=== PATIENT | male | born 1965 | race Caucasian/White ===

== ENCOUNTER 2020-05-31 08:05 | Outpatient (CLI) | payer MEDICARE, SELFPAY ==
--- NOTE | ~2020-05-31 | XR_ITS ---
XR chest 2V DATE: 05/31/2020 08:44 INDICATION: Essential hypertension. Preoperative screening. TECHNIQUE: PA and lateral views COMPARISON: None FINDINGS: Normal heart size. No hilar or mediastinal enlargement. No pulmonary infiltrate or consolid ation, pleural effusion or pulmonary vascular congestion or pneumothorax. Diffuse idiopathic skeletal hyperostosis of the thoracic spine. IMPRESSION: No active cardiopulmonary disease Reviewed, dictated and finalized at location B.
[2020-05-31 08:38] LABS: Basophils Percent Auto 0.4 % (0.2-1.2); Eosinophils Absolute Auto 0.2 K/mm3 (0-0.3); Eosinophils Percent Auto 2.5 % (0-4.4); Hematocrit 39.4 % (42.0-52.0); Hemoglobin 13.3 g/dL (14.0-18.0); Immature Granulocyte Absolute 0.01 K/mm3 (0.00-0.031); Immature Granulocyte Percent A 0.1 % (0-0.5); Lymphocytes Absolute Auto 1.48 K/mm3 (0.9-3.2); Lymphocytes Percent Auto 21.8 % (18.3-44.2); Mean Corpuscular HGB Conc 33.8 g/dl (32-36); Mean Platelet Volume 10.4 fl (7.4-10.4); Monocytes Absolute Auto 0.5 K/mm3 (0.1-0.6); Monocytes Percent Auto 7.2 % (2.6-8.5); Neutrophils Absolute Auto 4.6 K/mm3 (1.3-6.7); Platelet Count Result 302 k/mm3 (150-375); Red Blood Count 4.58 M/mm3 (4.6-6.20); Red Cell Distribution Width 13.5 % (11.5-14.5); White Blood Count 6.8 K/mm3 (4.5-10.0)
[2020-05-31 08:52] LABS: Alanine Aminotransferase 16 U/L (4-50); Albumin Level 4.2 g/dL (3.5-5.1); Alkaline Phosphatase 110 U/L (38-126); Aspartate Amino Transferase 21 U/L (17-59); Bilirubin,Total 0.8 mg/dL (0.2-1.3); Blood Urea Nitrogen 9 mg/dL (9-20); Carbon Dioxide 23 mmol/L (22-30); Chloride 107 mmol/L (98-107); Cholesterol 222 mg/dL (0-200); Estimated Glomerular Filt Rate > 60; Glucose 100 mg/dL (75-110); HDL Direct 37 mg/dL; Potassium 4.2 mmol/L (3.4-5.0); Sodium 139 mmol/L (137-145); Triglycerides 147 mg/dL (<150)
[2020-05-31 09:03] LABS: LDL Cholesterol Direct 150 mg/dL
== END 2020-05-31 08:06 | disposition home or self-care (01) ==
PROVIDERS: PCP Nurse Practitioner; Visit Provider Nurse Practitioner
DX: E78.5 Hyperlipidemia, unspecified (principal); Z01.818 Encounter for other preprocedural examination; I10 Essential (primary) hypertension; Z01.810 Encounter for preprocedural cardiovascular examination
CPT/HCPCS: 36415; 71046; 80053; 80061; 85025

== ENCOUNTER 2020-06-05 13:38 | Outpatient (CLI) | payer MEDICARE, SELFPAY ==
--- NOTE | 2020-06-05 14:47 | ECG_ITS ---
Measurements Intervals Holman Rate: 67 P: 24 MN: 160 QRS: -24 QRSD: 93 T: 34 QT: 376 QTc: 397 Interpretive Statements SINUS RHYTHM BORDERLINE R WAVE PROGRESSION, ANTERIOR LEADS BASELINE ARTIFACT- I, II, AVR, AVF BORDERLINE ECG Electronically Signed On 06-05-2020 15:19:49 CDT by Talat Vicente D.O.
[2020-06-05 15:11] LABS: Add Urine Microscopic? NO; Appearance Urine Clear (Clear); Bilirubin Urine Negative (Negative); Blood Urine Negative (Negative); Color Urine Straw (Yellow); Glucose Urine UA Negative (Negative); Ketones Urine Negative (Negative); Leukocyte Esterase Ur Negative LEU/UL (Negative); Nitrate Urine Negative (Negative); Protein Urine Negative (Negative); Specific Grav Ur 1.008 (1.001-1.035); Urobilinogen Urine Negative mg/dL (<2.0)
[2020-06-05 15:20] LABS: INR 1.1; Prothrombin Time 13.4 Seconds (11.1-14.7)
[2020-06-05 15:21] LABS: Partial Thromboplastin Time 26.5 SECONDS (22.3-36.8)
[2020-06-05 15:24] LABS: Hemoglobin A1C 5.5 % (<5.7)
[2020-06-05 15:30] LABS: Urine Cotinine NEGATIVE
== END 2020-06-05 13:39 | disposition home or self-care (01) ==
PROVIDERS: PCP Nurse Practitioner; Visit Provider Orthopaedic Surgery
DX: M17.11 Unilateral primary osteoarthritis, right knee (principal); Z01.812 Encounter for preprocedural laboratory examination; Z11.59 Encounter for screening for other viral diseases; R94.31 Abnormal electrocardiogram [ECG] [EKG]
CPT/HCPCS: 36415; 80307; 81003; 83036; 85610; 85730; 86850; 86900; 86901; 87081; 93005

== ENCOUNTER 2020-06-08 09:05 | Outpatient (CLI) | payer MEDICARE, SELFPAY ==
--- NOTE | ~2020-06-08 | NM_ITS ---
EXAMINATION: NM ruth ann stress w perfusion DATE: 06/08/2020 13:14 INDICATION: Abnormal electrocardiogram. Preop. TECHNIQUE: Rest images were obtained following intravenous administration of 9.9 mCi Tc99m tetrofosmi n (Myoview). The patient was infused intravenously with Lexiscan (regadenoson). Then, 29.4 mCi Tc99m tetrofosmin (Myoview) was administered intravenously, and stress images were obtained. Data was recon structed into short axis and horizontal and vertical long axis SPECT images. Gated SPECT images were also obtained. COMPARISON: None. FINDINGS: There is no definite reversible or fixed perfusion abnormality to suggest ischemia or infar ction. There is no segmental wall motion abnormality. Left ventricular ejection fraction measures 6 4%. IMPRESSION: 1. No definite ischemia or infarct. 2. Normal left ventricular ejection fraction measuring 64%. Reviewed, dictated and finalized at location A.
--- NOTE | 2020-06-08 09:25 | EST_ITS ---
Patient Info Name: Edward Atwood Age: 54 years : 1965 Gender: Male Ht: 72 in Wt: 225 lbs BSA: 2.30 m2 Exam Date: 06/08/2020 10:45 AM Exam Location: [facility] Stress Patient Status: Outpatient Admit Date: 06/08/2020 Staff Ordering Physician: Margie Rodríguez NP Attending Provider: Margie Rodríguez NP Exercise Technologist: Elizabeth Ulloa RDCS Exercise Physician: Talat Vicente DO Exam Type: CA stress ruth ann w NM Study Info Indications Z01.818 - Encounter for other preprocedural examination A regadenoson stress test was performed. Summary 1. 1. Negative lexiscan stress test for ischemic ST changes by ECG criteria. 2. 2. Baseline hypertension. 3. 3. Nuclear scan to follow and will be reported separately. Please correlate with it. 4. 4. Patient informed of the above results. Protocol: Lexiscan Stress ECG Details Stage: REST Duration (min): 6 min : 36 sec HR (bpm): 62 SBP (mmHg): 164 DBP (mmHg): 105 Stage: REST Duration (min): 16 min : 32 sec HR (bpm): 65 SBP (mmHg): 164 DBP (mmHg): 105 Stage: STAGE 1 Duration (min): 0 min : 59 sec HR (bpm): 69 SBP (mmHg): 163 DBP (mmHg): 102 Stage: RECOVERY Duration (min): 1 min : 0 sec HR (bpm): 88 SBP (mmHg): 157 DBP (mmHg): 92 Stage: RECOVERY Duration (min): 2 min : 0 sec HR (bpm): 84 SBP (mmHg): 157 DBP (mmHg): 92 Stage: RECOVERY Duration (min): 3 min : 0 sec HR (bpm): 82 SBP (mmHg): 154 DBP (mmHg): 95 Stage: RECOVERY Duration (min): 3 min : 3 sec HR (bpm): 82 SBP (mmHg): 154 DBP (mmHg): 95 Rest HR: 65 bpm Peak HR: 88 bpm Rest Sys BP: 164 mmHg Peak Sys BP: 163 mmHg Max Pred HR: 166 bpm % Max Pred HR: 53 % Target HR: 141 bpm Max RPP: 14,344 bpm*mmHg Termination Reason: Completed protocol Cardiac Symptoms: Shortness of breath Total Time: 1 min : 0 sec Rest Goodman BP: 105 mmHg Peak Goodman BP: 102 mmHg Total Dose: 0.4 mg Resting ECG Sinus rhythm. Stress ECG No ST changes. Arrhythmias None. Report Signatures
== END 2020-06-08 09:06 | disposition home or self-care (01) ==
LOC: ANHCARD 09:08
PROVIDERS: PCP Nurse Practitioner; Visit Provider Nurse Practitioner
DX: Z01.810 Encounter for preprocedural cardiovascular examination (principal)
CPT/HCPCS: 78452; 93017; A9502; J2785

== ENCOUNTER 2020-06-12 01:16 | Outpatient (CLI) | payer MEDICARE, SELFPAY ==
[2020-06-12 16:16] LABS: SARS-CoV-2 RNA PCR Negative
== END 2020-06-12 01:17 | disposition home or self-care (01) ==
LOC: ANHCOVIDDT 01:16
PROVIDERS: PCP Nurse Practitioner; Visit Provider Orthopaedic Surgery
DX: Z01.812 Encounter for preprocedural laboratory examination (principal); Z11.59 Encounter for screening for other viral diseases
CPT/HCPCS: 87635; C9803; U0003

== ENCOUNTER 2020-06-14 01:05 | Day surgery (SDC) | payer MEDICARE, SELFPAY ==
[2020-06-05 14:44] VITALS: BMI 30.2
[2020-06-05 15:26] VITALS: BP 189/106; PULSE 72; RESP 18; TEMP 37.1; O2SAT 98
--- NOTE | 2020-06-13 11:00 | WPDANESEPPF ---
Anes - Initial Pre Proc Eval Procedure: Operation Date: 06/14/20 11:30 Proposed Procedures p Right Total Knee Arthroplasty - Laz Kumar MD Date/Time: 06/13/20 11:00 Surgeon: Laz Kumar MD Pre Op Diagnosis: Right Knee DJD Patient Data Age: 54 Gender: M Height: 1.83 m Weight: 100.9 kg Last Vital Signs Temp 37.1 C 06/05/20 15:26 Pulse 72 06/05/20 15:26 Resp 18 06/05/20 15:26 BP 189/106 H 06/05/20 15:26 Pulse Ox 98 06/05/20 15:26 Allergies Allergy/AdvReac Type Severity Reaction Status Date / Time amoxicillin Allergy Severe Headache Verified 06/06/20 14:47 prednisone Allergy Unknown Nausea Verified 06/06/20 14:47 STEROIDS AdvReac Intermediate SICK AND Uncoded 06/06/20 14:47 NAUSEA Home Medications Medication Instructions Recorded Confirmed Type infliximab 100 mg intravenous See Rx Instructions .ROUTE .COMPLEX 11/18/19 06/06/20 History solution chlorhexidine gluconate 4 % 1 applic TOPICAL ONCE #237 ml 05/15/20 06/06/20 Rx topical liquid tramadol 50 mg tablet 50 mg PO BID PRN #60 tablet 06/01/20 06/06/20 Rx venlafaxine 75 mg capsule,extended 75 mg PO BID #180 cap 06/01/20 06/06/20 Rx release 24 hr ibuprofen [Motrin IB] 800 mg PO Q6H PRN 06/05/20 06/06/20 History metoprolol succinate 50 mg 100 mg PO .daily every morning #30 06/05/20 06/06/20 Rx tablet,extended release 24 hr tablet omeprazole magnesium [Prilosec] 20 mg PO DAILY 06/05/20 06/06/20 History simvastatin 10 mg tablet 10 mg PO DAILY #90 tablet 06/06/20 06/06/20 Rx Patient hx anesthesia problems: none Family hx anesthesia problems: none PMFSH Past Medical History Medical History (Updated 06/13/20 @ 11:00 by Anton Damon DO) Anxiety associated with depression Chronic pain syndrome Depression due to physical illness Hypertension Left shoulder pain LAURENT (obstructive sleep apnea) Rheumatoid arthritis Social History Social History Smoking packs per day: 0.5 Smoking cigarettes per day: 10.0 Years smoked: 40 Smoking pack-years: 20.00 Smoking status: Light tobacco smoker Tobacco type: cigarettes Second hand tobacco smoke exposure: No Smoking end date: 11/10/13 Additional smoking assessment comments: DENIES ANY FORM OF TOBACCO USE Alcohol intake: never Substance use: never Living arrangements: with family Gender identity (if verbalized by the patient): Male Spiritual care concerns: No Agree to blood products: Yes Anes - Eval Final PreProcedure Day of Procedure 06/13/20 11:00 Patient weight: obese Heart: regular rate and rhythm Lungs: clear to auscultation and normal air movement Airway: Mallampati scale class II Neurological: alert and oriented Last oral intake: >/= 8 hours ASA classification: III Emergent: no Anesthetic plan: proceed Anesthesia type and monitoring: general LMA and standard monitoring Informed Consent: The patient's anesthetic plan and its attendant risks and benefits were discussed with the patient/family/POA. Questions were solicited and answers provided to the satisfaction of the patient/family/POA.
--- NOTE | 2020-06-13 11:01 | WPDANESPNB ---
Anes - Peripheral Nerve Block Date/Time: 06/13/20 11:01 I have discussed with the patient/family/POA the placement of a peripheral nerve block for post-operative pain management, including associated risks, benefits, complications, and side effects. Alternative methods of post-operative analgesia were detailed. Questions were solicited and answers provided to the satisfaction of the patient/family/POA. Time-Out: A pre-procedural Time-Out was completed immediately before starting the procedure and confirmed: Patient Identification, Site, Procedure, Patient Position and the Availability of Requisite Equipment. Clinical Indications: Acute post-operative pain management requested by the operative surgeon. Nerve Block Insertion Note Anes-nerve block: femoral right Patient position: supine Skin prep: chlorhexidine Needle: 22 gauge, stimulating, insulated echogenic needle. Needle length: 80 mm Technique: nerve stimulation lost at (mA) (0.3) and ultrasound Injectate: bupivacaine 0.5% with epi 5 mcg/ml (30cc) Observations: tolerated well Complications: none Procedure start time:: 1030 Procedure end time:: 1032
[2020-06-14] VITALS (13 sets, daily range): BP systolic 131–181; BP diastolic 87–109; PULSE 57–89; RESP 9–28; TEMP 36–37.2; O2SAT 95–100; BMI 32.7
--- NOTE | ~2020-06-14 | XR_ITS ---
XR knee RT 2V DATE: 06/14/2020 13:21 INDICATION: Right total knee replacement TECHNIQUE: Postoperative AP and crosstable lateral views COMPARISON: 05/04/2020 right knee FINDINGS: There are anterior skin carter. There is expected postoperative subcutaneous and intra-art icular emphysema. Status post right knee arthroplasty without patellar resurfacing. Normal alignment. No fracture or dislocation, periosteal reaction or bone destruction. No unusual radiopaque foreign vamshi dy is evident. IMPRESSION: Status post right knee arthroplasty Reviewed, dictated and finalized at location B.
--- NOTE | 2020-06-14 07:16 | WPDHPUPDATE1 ---
History and Physical Update Update Date/Time: 06/14/20 07:16 History and Physical has been reviewed, including an updated exam of the patient. There are NO changes in the patient's condition. Risks, benefits, and alternatives have been discussed and questions answered. Patient agrees to proceed with procedure.
[2020-06-14] MEDS: LACTATED RINGERS 1,000 ML 30 ML IV CONT ×2 (10:05→13:03)
[2020-06-14] MEDS: TRANEXAMIC ACID 1,000MG/ISO100 1,000 MG/100 ML BAG 200 MG IVPB (10:10)
[2020-06-14] MEDS: ACETAMINOPHEN 500 MG TABLET 1000 MG PO (10:15)
[2020-06-14] MEDS: KETOROLAC 15 MG/ML VIAL (*BKC) IV PUSH (10:15)
[2020-06-14] MEDS: ceFAZolin 2 GM/D5W 50 ML 2 GM/50 ML BAG IVPB ×2 (10:43→17:43)
[2020-06-14] MEDS: GENTAMICIN BONE CEMENT REFOBACIN 1 EACH TOPICAL (12:21)
--- NOTE | 2020-06-14 12:56 | PM.OP ---
Procedure Note - Brief Procedure Note - Brief Date of procedure: 06/14/20 Pre-op diagnosis: Right Knee DJD Post-op diagnosis: same Procedure performed: R TKA Anesthesia: GETA Surgeon: Laz Kumar MD Estimated blood loss (mL): 100 Complications: No immediate complications Condition: stable Disposition: PACU
--- NOTE | 2020-06-14 13:30 | SUR.PHASEI ---
XRAY OF RIGHT KNEE DONE AT 1320.
--- NOTE | 2020-06-14 13:46 | SUR.PHASEI ---
DR. OLSEN AWARE OF PT'S BLOOD PRESSURES; KIAN'S PT ADMISSION TO FLOOR. NO INTERVENTIONS.
--- NOTE | 2020-06-14 14:21 | OP_ITS ---
DATE OF PROCEDURE: 06/14/2020 PREOPERATIVE DIAGNOSIS: Right knee degenerative joint disease. POSTOPERATIVE DIAGNOSIS: Right knee degenerative joint disease. PROCEDURE: Right total knee arthroplasty. ANESTHESIA: General. COMPLICATIONS: None. INDICATIONS: This is a 54-year-old male with severe arthritis to the right knee due to rheumatoid arthritis. He was having severe pain. He was indicated for right total knee arthroplasty. DESCRIPTION OF PROCEDURE: The patient was taken to the operating room in stable condition and placed in supine position. General anesthesia induced and then the right lower extremity was prepped and draped sterilely from the toes to the thigh. A midline skin incision was made. Medial parapatellar arthrotomy was made. The patella was everted. There was severe arthrosis in all 3 compartments of the knee joint. An IM park was placed in the femur. Distal femoral cut was made at 5 degrees of valgus and approximately 9 mm of bone was removed from the high side of the femur and then the knee was sized to 65, so a cutting block was placed in alignment with [place] line and with the transepicondylar axis and then anterior, posterior, and chamfer cuts were made to the femur. Once that was performed, an IM park was placed in tibia and a transtibial cut was made removing approximately 10 mm of bone from the high side of the tibia. The tibia then was planed to a smooth surface. A tibial trial was placed in line with the one-third medial aspect of the tibial tubercle measuring 79 and then a femoral trial measuring [address]. The fit was very good in both the femur and the tibia. A CR poly measuring 10 mm was placed. The knee came out to full extension. There was no flexion contracture. There was good stability in varus-valgus stress. This was true also in flexion. The patella tracked without any tilt and there was no excessive rollback in flexion. Trial instrumentation was removed and then a Biomet 79 tibial component and a 65 femoral component were both cemented into place and then the 10 CR poly component was placed as well, snapped in and secured and then the knee was placed in full extension. Once the cement was hardened, the tourniquet was deflated, bleeders were cauterized and then the wound was irrigated thoroughly with sterile Betadine, sterile water for 3 minutes. Then, the deep fascial layers were approximated with #1 Vicryl suture, subcutaneous tissues with 2-0 Vicryl, and the skin then was approximated with carter. Sterile dressing was applied. The patient was extubated and then sent to recovery. Sherry I MT: Janes
[2020-06-14] MEDS: diazePAM 5 MG TABLET PO (14:52)
[2020-06-14] MEDS: VENLAFAXINE HCL XR 75 MG CAP.ER.24H PO (16:43)
[2020-06-14] MEDS: CELECOXIB 200 MG CAPSULE PO (16:43)
[2020-06-14] MEDS: DOCUSATE SODIUM 100 MG CAPSULE PO (20:46)
[2020-06-14] MEDS: FAMOTIDINE 20 MG TABLET PO (20:46)
[2020-06-14] MEDS: oxyCODONE/ACETAMINOPHEN 5-325 MG TABLET 1 TABLET PO (21:01)
[2020-06-15] MEDS: ceFAZolin 2 GM/D5W 50 ML 2 GM/50 ML BAG IVPB ×2 (01:04→09:59)
[2020-06-15 02:15] VITALS: BP 158/85; PULSE 83; RESP 16; TEMP 36.6; O2SAT 97
[2020-06-15 04:15] VITALS: BP 155/84; PULSE 81; RESP 12; TEMP 36.6; O2SAT 98
[2020-06-15] MEDS: oxyCODONE/ACETAMINOPHEN 5-325 MG TABLET 1 TABLET PO (04:51)
[2020-06-15 05:35] LABS: Basophils Percent Auto 0.3 % (0.2-1.2); Eosinophils Absolute Auto 0.1 K/mm3 (0-0.3); Eosinophils Percent Auto 1.2 % (0-4.4); Hematocrit 30.7 % (42.0-52.0); Hemoglobin 10.2 g/dL (14.0-18.0); Immature Granulocyte Absolute 0.02 K/mm3 (0.00-0.031); Immature Granulocyte Percent A 0.2 % (0-0.5); Lymphocytes Absolute Auto 1.19 K/mm3 (0.9-3.2); Lymphocytes Percent Auto 13.5 % (18.3-44.2); Mean Corpuscular HGB Conc 33.2 g/dl (32-36); Mean Corpuscular Hemoglobin 29.1 pg (26-34); Mean Corpuscular Volume 87.5 fl (80-100); Mean Platelet Volume 11.3 fl (7.4-10.4); Monocytes Percent Auto 10.7 % (2.6-8.5); Neutrophils Absolute Auto 6.5 K/mm3 (1.3-6.7); Neutrophils Percent Auto 74.1 % (45.5-73.1); Platelet Count Result 225 k/mm3 (150-375); Red Blood Count 3.51 M/mm3 (4.6-6.20); Red Cell Distribution Width 13.6 % (11.5-14.5); White Blood Count 8.8 K/mm3 (4.5-10.0)
[2020-06-15 05:50] LABS: Anion Gap 11.7 mmol/L (7-16); Blood Urea Nitrogen 9 mg/dL (9-20); Calcium 8.1 mg/dL (8.4-10.2); Carbon Dioxide 24 mmol/L (22-30); Chloride 105 mmol/L (98-107); Estimated CRCL calculation 105 ml/min; Estimated Glomerular Filt Rate > 60; Glucose 127 mg/dL (75-110); Potassium 3.7 mmol/L (3.4-5.0); Sodium 137 mmol/L (137-145)
[2020-06-15] MEDS: ONDANSETRON INJ 4 MG/2 ML VIAL IV PUSH (07:35)
[2020-06-15 08:19] VITALS: O2SAT 96
[2020-06-15] MEDS: VENLAFAXINE HCL XR 75 MG CAP.ER.24H PO (08:43)
[2020-06-15] MEDS: DOCUSATE SODIUM 100 MG CAPSULE PO (08:43)
[2020-06-15] MEDS: FAMOTIDINE 20 MG TABLET PO (08:43)
[2020-06-15] MEDS: CELECOXIB 200 MG CAPSULE PO (08:43)
[2020-06-15] MEDS: ASPIRIN 325 MG ENTERIC TABLET 650 MG PO (08:43)
--- NOTE | 2020-06-15 09:50 | PM.PNORT ---
Progress Note: A&P Assessment and Plan (1) Status post total knee replacement: Qualifiers: Laterality: right Qualified Code(s): Z96.651 - Presence of right artificial knee joint Code(s): Z96.659 - Presence of unspecified artificial knee joint Status: Acute Assessment and Plan: POD #1: RIGHT TKA Monitor nausea/decreased appetite. Anti-emetic as needed. Continue PT/OT. WBAT. Walker. Fall Risk. Continue pain control. Ice. No pillows under knee. Continue DVT prophylaxis. SCDs. Incentive spirometry. Dispo: Home with Home Health pending progress with PT/OT. Subjective Subjective Date/Time Seen: 06/15/20 09:50 POD #1 RIGHT TKA Complaints of mild nausea with pain medication. Decreased appetite. Up walking in halls with standby assist with PT/OT. Walker use. Working well with PT/OT. Review of Systems Review of Systems: All systems reviewed & are unremarkable except as noted in HPI and below Constitutional: Constitutional: Denies fever(s) and Denies headache(s) ENT: Denies headache(s) Cardiovascular: Cardiovascular: Denies chest pain, Denies diaphoresis, Denies palpitations and Denies dyspnea Respiratory: Respiratory: Denies dyspnea Gastrointestinal: Gastrointestinal: Denies abdominal pain, Denies constipation, Reports nausea and Denies vomiting Comments: decreased appetite Genitourinary: Genitourinary: Denies dysuria and Reports nocturia Comments: mild burning with urination Musculoskeletal: Musculoskeletal: Reports arthralgias (Right Knee ) and Reports joint swelling (Right Knee ) Neurologic: Denies headache(s) Endocrine: Endocrine: Denies palpitations Exam Const: General: comfortable and no acute distress Resp: Effort & Inspection: normal respiratory effort Cardio: Rate: regular rate Rhythm: regular rhythm GI: GI Palp: Yes Soft to palpation, No Tenderness to palpation present (GI) and No Guarding due to palpation present (GI) Skin: Wounds: wounds noted Other: Incision c/d/i. No surrounding redness/warmth. No hematoma. Mild ecchymosis. No wound dehiscence Neuro: Cognition (Neuro): normal cognition Other: NV intact aside from block. Moves toes. Sensation intact to light touch. +ankle dorsiflexion/plantarflexion. Extrem: Right upper extremity: normal to inspection, full ROM and normal capillary refill Left upper extremity: normal to inspection, full ROM and normal capillary refill Right lower extremity: normal to inspection, full ROM (ROM limited due to recent surgical intervention ) and knee Details: tenderness (diffuse, mild ) and swelling (diffuse, mild ) Left lower extremity: normal to inspection Psych: Mental Status: mental status grossly normal Objective Data Vital Signs Vital Signs: Vital Signs - 24 hr 06/14/20 13:03 06/14/20 13:15 06/14/20 13:20 Temperature 37.2 C Pulse Rate 87 88 88 Respiratory Rate 14 13 14 Blood Pressure 149/94 H 154/109 H 154/98 H Pulse Oximetry 100 96 99 06/14/20 13:34 06/14/20 13:47 06/14/20 14:00 Temperature 36.6 C Pulse Rate 89 83 80 Respiratory Rate 13 16 9 L Blood Pressure 160/95 H 141/99 H 160/103 H Pulse Oximetry 95 95 95 06/14/20 14:15 06/14/20 14:30 06/14/20 14:45 Temperature 36.2 C L 36.2 C L Pulse Rate 88 77 73 Respiratory Rate 28 H 18 18 Blood Pressure 131/106 H 155/99 H 151/91 H Pulse Oximetry 95 96 96 06/14/20 15:15 06/14/20 16:12 06/14/20 20:15 Temperature 36.0 C L 36.4 C 36.6 C Pulse Rate 70 72 57 L Respiratory Rate 20 18 12 Blood Pressure 154/88 H 148/95 H 181/87 H Pulse Oximetry 98 98 99 06/15/20 02:15 06/15/20 04:15 06/15/20 08:19 Temperature 36.6 C 36.6 C Pulse Rate 83 81 Respiratory Rate 16 12 Blood Pressure 158/85 H 155/84 H Pulse Oximetry 97 98 96 Intake/Output Intake/Output: Intake & Output 06/12/20 06/13/20 06/14/20 06/15/20 23:59 23:59 23:59 23:59 Intake Total 790 640 Output Total 1350 Balance 790 -710 Meds/Results Medications: Act
[2020-06-15 09:54] VITALS: BP 150/82; PULSE 82; RESP 17; TEMP 36.3; O2SAT 95
--- NOTE | 2020-06-15 12:47 | WPDANESPN ---
Anes - Prog Note Post-Op Date/Time: 06/15/20 12:47 Cardiovascular status: normal Respiratory status: normal Airway patency: baseline Mental status: baseline Post-Op hydration status: normal Vital Signs: Last Vital Signs Temp 36.3 C L 06/15/20 09:54 Pulse 82 06/15/20 09:54 Resp 17 06/15/20 09:54 BP 150/82 H 06/15/20 09:54 Pulse Ox 95 06/15/20 09:54 I/O: Intake & Output 06/14/20 06/15/20 06/15/20 23:59 07:59 15:59 Intake Total 640 400 290 Output Total 1350 Balance 640 -950 290 Laboratory Tests 06/15/20 05:06 06/15/20 05:06 06/15/20 06/15/20 05:06 05:06 WBC 8.8 RBC 3.51 L Hgb 10.2 L D Hct 30.7 L MCV 87.5 MCH 29.1 MCHC 33.2 RDW 13.6 Plt Count 225 MPV 11.3 H Immature Gran % (Auto) 0.2 Neut % (Auto) 74.1 H Lymph % (Auto) 13.5 L [place] % (Auto) 10.7 H Eos % (Auto) 1.2 Baso % (Auto) 0.3 Lymph # (Auto) 1.19 [place] # (Auto) 1.0 H Eos # (Auto) 0.1 Baso # (Auto) 0.0 Abs Immat Gran (auto) 0.02 Absolute Neuts (auto) 6.5 Absolute Nucleated RBC 0.0 Nucleated RBC % 0.0 Sodium 137 Potassium 3.7 Chloride 105 Carbon Dioxide 24 Anion Gap 11.7 BUN 9 Creatinine 0.90 Estim Creat Clear Calc 105 Estimated GFR > 60 Glucose 127 H Calcium 8.1 L Post-procedural complaints: none Patient Feedback: Patient satisfied with anesthetic care.
--- NOTE | 2020-06-15 13:21 | PM.DS ---
DS: Admitting Diagnosis Admitting Diagnosis Admitting Diagnosis: Right TKA DS: Discharge Diagnosis Discharge Diagnosis (1) Status post total knee replacement: Qualifiers: Laterality: right Qualified Code(s): Z96.651 - Presence of right artificial knee joint Code(s): Z96.659 - Presence of unspecified artificial knee joint Status: Acute Assessment and Plan: POD #1: RIGHT TKA Monitor nausea/decreased appetite. Anti-emetic as needed. Continue PT/OT. WBAT. Walker. Fall Risk. Continue pain control. Ice. No pillows under knee. Continue DVT prophylaxis. SCDs. Incentive spirometry. Dispo: Home with Home Health pending progress with PT/OT. DS: Summary Hospital Course Reason for hospitalization: Right TKA Hospital Course: 54-year-old male admitted status post right total knee replacement for postoperative medical management and pain management. He progressed well with physical therapy and occupational therapy and was cleared safe to go home with home health. Status at Discharge Functional status at discharge: uses cane/walker Overall status at discharge: patient is progressing back to baseline Time Spent with Patient Time attestation: Total time spent providing and/or coordinating discharge services: Exam Const: General: comfortable and no acute distress Resp: Effort & Inspection: normal respiratory effort Cardio: Rate: regular rate Rhythm: regular rhythm Skin: Wounds: wounds noted Other: Incision c/d/i. No surrounding redness/warmth. No hematoma. Mild ecchymosis. No wound dehiscence Neuro: Cognition (Neuro): normal cognition Other: NV intact aside from block. Moves toes. Sensation intact to light touch. +ankle dorsiflexion/plantarflexion. Extrem: Right upper extremity: normal to inspection, full ROM and normal capillary refill Left upper extremity: normal to inspection, full ROM and normal capillary refill Right lower extremity: normal to inspection, full ROM (ROM limited due to recent surgical intervention ) and knee Details: tenderness (diffuse, mild ) and swelling (diffuse, mild ) Left lower extremity: normal to inspection Psych: Mental Status: mental status grossly normal DS: Data Data Completed and Pending Labs on day of discharge: Labs from last 24 hours 06/15/20 06/15/20 05:06 05:06 WBC 8.8 RBC 3.51 L Hgb 10.2 L D Hct 30.7 L MCV 87.5 MCH 29.1 MCHC 33.2 RDW 13.6 Plt Count 225 MPV 11.3 H Immature Gran % (Auto) 0.2 Neut % (Auto) 74.1 H Lymph % (Auto) 13.5 L [place] % (Auto) 10.7 H Eos % (Auto) 1.2 Baso % (Auto) 0.3 Lymph # (Auto) 1.19 [place] # (Auto) 1.0 H Eos # (Auto) 0.1 Baso # (Auto) 0.0 Abs Immat Gran (auto) 0.02 Absolute Neuts (auto) 6.5 Absolute Nucleated RBC 0.0 Nucleated RBC % 0.0 Sodium 137 Potassium 3.7 Chloride 105 Carbon Dioxide 24 Anion Gap 11.7 BUN 9 Creatinine 0.90 Estim Creat Clear Calc 105 Estimated GFR > 60 Glucose 127 H Calcium 8.1 L Discharge Plan Discharge Consulting providers: Bronson Murphy Christophe Patient Disposition: Home Health Service Discharge Instructions: Post Op Total Knee Replacement Instructions Dr. Laz Kumar ?Your dressing will be changed prior to your discharge. You will be sent home with one additional dressing to be changed in 5 days by the home health RN. Your carter will be removed on the 14th day after surgery and steri-strips will be placed. ?You may shower with your dressing but do not submerge in a bath tub. ?Do not drive or operate machinery until you are released by Dr. Kumar. ?Do not walk without a walker for any reason until you are released by Dr. Kumar. ?Continue to use your ice machine. Please use a towel or pillow case to protect your skin before applying your ice machine. ?Do NOT place a pillow under your knee. You may use a pillow from the calf down if needed. ?You may begin use of your CPM mach
== END 2020-06-15 15:06 | disposition home health service (06) ==
LOC: ANHSURGERY 13:42 → ANH2MED 14:34
PROVIDERS: PCP Nurse Practitioner; Visit Provider Orthopaedic Surgery
PROC: (CPT 27447; principal; 2020-06-14 11:30)
DX: M17.11 Unilateral primary osteoarthritis, right knee (principal); G89.18 Other acute postprocedural pain; I10 Essential (primary) hypertension; M06.9 Rheumatoid arthritis, unspecified; G47.33 Obstructive sleep apnea (adult) (pediatric); F41.8 Other specified anxiety disorders; G89.4 Chronic pain syndrome; Z87.891 Personal history of nicotine dependence; E66.9 Obesity, unspecified; Z68.32 Body mass index [BMI] 32.0-32.9, adult
CPT/HCPCS: 27447; 64447; 36415; 71046; 73560; 80048; 80053; 80061; 80307; 81003; 83036; 85025; 85610; 85730; 86850; 86900; 86901; 87081; 87635; 93005; 97110; 97116; 97161; 97165; A9270; C1713; C1776; C9803; J0171; J0690; J1885; J2250; J2270; J2370; J2405; J2704; J2795; J3010; J7120; U0003

== ENCOUNTER 2020-07-31 08:00 | Outpatient (RCR) | payer MEDICARE, SELFPAY ==
--- NOTE | 2020-07-11 09:40 | PTOPEVAL ---
PHYSICAL THERAPY EVALUATION AND PLAN OF CARE 07-11-2020 Thank you for referring Edward Atwood to [facility], s/p R TRK.? He is scheduled to be seen for therapy? 2 x/week for 3 weeks. Please review, sign, date and return this plan of care LIA. I agree with and certify that the following plan of care is medically necessary. Referring Physician Date Attending Provider: Laz Kumar MD *PT Outpatient Evaluation Start: 07/11/20 08:40 Document 07/11/20 08:30 GEOVANNA (Rec: 07/11/20 09:31 GEOVANNA [id number]) Outpatient Past Medical History Past Medical History Source of Past Medical History Patient Neurological History Hx Neurological Disorders No Significant History Cardiovascular History Hx Hypertension Yes: meds Respiratory History Hx Sleep Apnea Yes: DOES NOT USE CPAP CAN'T TOLERATE Gastrointestinal History Hx Gastroesophageal Reflux Disease Yes Genitourinary History Hx Genitourinary Disorders No Significant History Musculoskeletal History Hx Orthopedic Surgery Yes: this admission R TKR Hx Rheumatoid Arthritis Yes: ankles, knees, shoulders, hands mostly affected Hematological History Hx Blood Transfusions Yes: as Endocrine History Hx Endocrine Disorders No Significant History HEENT History Hx Sinus Problems Yes: 01/19/19 FESS Hx Other HEENT Disorders Yes: DRY EYES Integumentary History Hx Skin Disorders No Significant History Reproductive History Hx Reproductive Disorders No Significant History Psychosocial History Hx Anxiety Yes Hx Depression Yes Pain History Has Past Pain Affected Your Daily Life Yes: RT KNEE; RA- chronic pain Anesthesia History Hx Anesthesia Reactions No Significant History Evaluation Information Problem Diagnosis s/p R TKR Onset 06-14-2020 surgery Subjective Information completed [facility] PT 07-05-2020; Query Text:As Reported By Patient/ doing supine and sitting Family exercises; Prior Level of Function Activity Level (Last 3 Months) Occupation on disability due to RA Activity of Daily Living Ability Independent Indoor/Home Mobility Independent Community Mobility Independent Stairs Ability Independent Functional Cognition (Planning, Shopping Independent , Taking Medications) Cooking Yes Cleaning Yes Laundry Yes Shopping Yes Driving Yes Home Setting Home Type House Environmental Barriers Railing, Bilateral,Stairs, Greater than 4 Living Situ
--- NOTE | 2020-07-31 08:39 | PTOPEVAL ---
PHYSICAL THERAPY DISCHARGE 07-31-2020 See clinical summary below. Goals were partially achieved. Discharge PT and he is to continue with his home exercise program. Thank you for referring Edward Atwood to [facility].? Please review, sign, date and return this plan of care LIA. I agree with and certify that the following plan of care is medically necessary. Referring Physician Date Attending Provider: Laz Kumar MD *PT Outpatient Discharge Document 07/31/20 08:00 GEOVANNA (Rec: 07/31/20 08:36 GEOVANNA [id number]) Subjective Information Barrie reports: doing exercises; Query Text:As Reported By Patient/ trying to walk and do more; Family not able to kneel; knee continues to pop and make noise; agree to discharge from PT; Pain Assessment Timing of Pain Assessment Timing of Pain Assessment Assessment Pain Scale Pain Scale Used Numeric (1 - 10) Self Report Pain Assessment Right Knee(s) Reported Pain Level 1 Other Pain Description medial knee dull pain Lowest Pain Intensity 1 Greatest Pain Intensity 2 Other Alleviating Interventions motrin and tylenol for knee pain and over all pain; Pain Score Pain Score 1: Self Report Lower Extremity Range of Motion General Lower Extremity Range of Motion Gross Lower Extremity Range of Motion sitting AROM R knee: (-15') to Comments 128'; supine and prone stretching knee extension (-5') Lower Extremity Muscle Strength Testing General Lower Extremity Strength Gross Lower Extremity Strength R LE: single leg standing 16 seconds; standing 3# ankle wt: hip flexion, hip abduction, hip extension and knee flexion x 20 reps with 1 UE hold Balance Assessment 5 Time Sit to Stand Time in Seconds 14 5 Time Sit to Stand Comments did not use UE's Query Text:Normative Data: If Greater Than 15 Seconds, 74% Increase Risk for Recurrent Falls Gait Assessment Gait Assessment Ambulation Assistive Devices None Additional Ambulation Comments ambulates with slight knee flexion on both R and L; and lateral shift of trunk to L with WB on L; 2 Minute Walk Total Distance Walked (feet) 400 2 Minute Walk Gait Speed Score (feet/ 3.33 second) Number of Breaks Required 0 2 Minute Walk Test Comments without assistive device Stair Climbing Assessment Stair Climbing Assessment Stair Climbing Zee
== END 2020-08-01 14:05 | disposition home or self-care (01) ==
LOC: ANHPT 08:00
PROVIDERS: PCP Nurse Practitioner; Visit Provider Orthopaedic Surgery
DX: Z47.1 Aftercare following joint replacement surgery (principal); Z96.651 Presence of right artificial knee joint
CPT/HCPCS: 97110; 97140; 97161

== ENCOUNTER 2020-09-18 14:33 | Outpatient (CLI) | payer MEDICARE, SELFPAY ==
[2020-09-18 15:48] LABS: Basophils Absolute Auto 0.1 K/mm3 (0.0-0.1); Basophils Percent Auto 0.8 % (0.2-1.2); Eosinophils Absolute Auto 0.7 K/mm3 (0-0.3); Eosinophils Percent Auto 10.5 % (0-4.4); Hematocrit 44.1 % (42.0-52.0); Hemoglobin 14.4 g/dL (14.0-18.0); Immature Granulocyte Absolute 0.01 K/mm3 (0.00-0.031); Immature Granulocyte Percent A 0.2 % (0-0.5); Lymphocytes Absolute Auto 2.11 K/mm3 (0.9-3.2); Lymphocytes Percent Auto 32.2 % (18.3-44.2); Mean Corpuscular HGB Conc 32.7 g/dl (32-36); Mean Corpuscular Hemoglobin 28.6 pg (26-34); Mean Corpuscular Volume 87.7 fl (80-100); Mean Platelet Volume 10.7 fl (7.4-10.4); Monocytes Absolute Auto 0.6 K/mm3 (0.1-0.6); Monocytes Percent Auto 9.5 % (2.6-8.5); Neutrophils Absolute Auto 3.1 K/mm3 (1.3-6.7); Neutrophils Percent Auto 46.8 % (45.5-73.1); Platelet Count Result 306 k/mm3 (150-375); Red Blood Count 5.03 M/mm3 (4.6-6.20); Red Cell Distribution Width 12.9 % (11.5-14.5); White Blood Count 6.6 K/mm3 (4.5-10.0)
[2020-09-18 15:49] LABS: Add Urine Microscopic? NO; Appearance Urine Clear (Clear); Bilirubin Urine Negative (Negative); Blood Urine Negative (Negative); Color Urine Straw (Yellow); Glucose Urine UA Negative (Negative); Ketones Urine Negative (Negative); Leukocyte Esterase Ur Negative LEU/UL (Negative); Nitrate Urine Negative (Negative); Protein Urine Negative (Negative); Specific Grav Ur 1.009 (1.001-1.035); Urobilinogen Urine Negative mg/dL (<2.0)
[2020-09-18 15:56] LABS: Albumin Level 4.2 g/dL (3.5-5.1); Anion Gap 11 mmol/L (8-16); Blood Urea Nitrogen 11 mg/dL (9-20); Calcium 9.1 mg/dL (8.4-10.2); Carbon Dioxide 27 mmol/L (22-30); Chloride 102 mmol/L (98-107); Estimated Glomerular Filt Rate > 60; Glucose 95 mg/dL (75-110); Potassium 3.9 mmol/L (3.4-5.0); Sodium 140 mmol/L (137-145)
[2020-09-18 15:57] LABS: Urine Cotinine NEGATIVE
[2020-09-18 16:06] LABS: Hemoglobin A1C 5.6 % (<5.7)
[2020-09-18 16:07] LABS: INR 0.9; Partial Thromboplastin Time 27.3 SECONDS (22.3-36.8); Prothrombin Time 12.8 Seconds (11.1-14.7)
== END 2020-09-18 14:34 | disposition home or self-care (01) ==
LOC: ANHSURGERY 14:34
PROVIDERS: PCP Nurse Practitioner; Visit Provider Orthopaedic Surgery
DX: M17.10 Unilateral primary osteoarthritis, unspecified knee (principal); Z01.818 Encounter for other preprocedural examination
CPT/HCPCS: 80048; 80307; 81003; 82040; 83036; 85025; 85610; 85730; 86850; 86900; 86901; 87081

== ENCOUNTER 2020-11-24 07:10 | Outpatient (CLI) | payer MEDICARE, SELFPAY ==
[2020-11-24 07:36] LABS: Cholesterol 200 mg/dL (0-200); HDL Direct 43 mg/dL; Triglycerides 178 mg/dL (<150)
[2020-11-24 07:47] LABS: LDL Cholesterol Direct 138 mg/dL
[2020-11-24 08:07] LABS: Prostate Specific Antigen 0.4 ng/mL (< OR = 4.0)
== END 2020-11-24 07:11 | disposition home or self-care (01) ==
PROVIDERS: PCP Family Medicine; Visit Provider Family Medicine
DX: F41.8 Other specified anxiety disorders (principal); I10 Essential (primary) hypertension; E78.5 Hyperlipidemia, unspecified; Z12.5 Encounter for screening for malignant neoplasm of prostate
CPT/HCPCS: 36415; 80061; 84153; 84443; G0103

== ENCOUNTER 2020-12-08 00:37 | Outpatient (CLI) | payer MEDICARE, SELFPAY ==
[2020-12-08 19:17] LABS: SARS-CoV-2 RNA PCR Negative
== END 2020-12-08 00:38 | disposition home or self-care (01) ==
LOC: ANHCOVIDDT 00:37
PROVIDERS: Orthopaedic Surgery; PCP Family Medicine; Visit Provider Internal Medicine Gastroenterology
DX: Z01.812 Encounter for preprocedural laboratory examination (principal); Z20.822 Contact with and (suspected) exposure to COVID-19
CPT/HCPCS: C9803; U0003; U0005

== ENCOUNTER 2020-12-11 00:49 | Day surgery (SDC) | payer MEDICARE, SELFPAY ==
[2020-11-24 08:54] VITALS: BMI 32.0
[2020-12-11 08:29] VITALS: BP 136/90; PULSE 100; RESP 16; TEMP 37.2; O2SAT 96
--- NOTE | 2020-12-11 08:33 | WPDANESEPPF ---
Anes - Initial Pre Proc Eval Procedure: Operation Date: 12/11/20 09:45 Proposed Procedures p Screening Colonoscopy - Gael Maddox MD Date/Time: 12/11/20 08:33 Surgeon: Gael aMddox MD Pre Op Diagnosis: Neoplasm Screening Patient Data Age: 55 Gender: M Height: 1.83 m Weight: 110.6 kg Last Vital Signs Temp 37.2 C 12/11/20 08:29 Pulse 100 12/11/20 08:29 Resp 16 12/11/20 08:29 BP 136/90 12/11/20 08:29 Pulse Ox 96 12/11/20 08:29 Allergies Allergy/AdvReac Type Severity Reaction Status Date / Time amoxicillin Allergy Severe Headache Verified 12/11/20 08:28 prednisone Allergy Unknown Nausea Verified 12/11/20 08:28 STEROIDS AdvReac Intermediate SICK AND Uncoded 12/11/20 08:28 NAUSEA Home Medications Medication Instructions Recorded Confirmed Type Prilosec 20 mg PO DAILY 06/05/20 11/28/20 History ibuprofen [Motrin IB] 800 mg PO Q6H PRN 06/05/20 11/28/20 History venlafaxine 75 mg capsule,extended See Rx Instructions .ROUTE 09/26/20 11/28/20 Rx release 24 hr .COMPLEX #180 each infliximab 100 mg intravenous See Rx Instructions .ROUTE .COMPLEX 10/31/20 11/28/20 History solution amlodipine 10 mg tablet 10 mg PO DAILY #90 tablet 11/01/20 11/28/20 Rx aspirin 650 mg PO DAILY 11/24/20 11/28/20 History metoprolol succinate 50 mg 50 mg PO DAILY #90 tablet 11/28/20 11/28/20 Rx tablet,extended release 24 hr chlorhexidine gluconate 4 % 1 applic TOPICAL ONCE #237 ml 12/05/20 Rx topical liquid Patient hx anesthesia problems: none Family hx anesthesia problems: none PMFSH Past Medical History Medical History Anxiety associated with depression Chronic pain syndrome Hypertension Left shoulder pain LAURENT (obstructive sleep apnea) Osteoarthritis Rheumatoid arthritis Surgical History Surgical History History of nasal surgery 01/2019 - Endoscopic anterior and posterior ethmoid, maxillary antrostomy, both sides. Status post total knee replacement (~06/14/20) Right Family History Family History Father Malignant neoplasm of prostate Family history of lung cancer, Onset Age: 74 Patient's father is Mother Patient's mother is , Onset Age: 69 Acute myocardial infarction, Onset Age: 69 Family history of cardiovascular disease, Onset Age: 71 Sibling Patient's brother is Other Family history of arthritis Hypertension Social History Social History Smoking packs per day: 0.75 Smoking cigarettes per day: 15.0 Years smoked: 40 Smoking pack-years: 30.00 Smoking status: Current some day smoker Tobacco type: cigarettes Second hand tobacco smoke exposure: No Smoking end date: 11/10/13 Additional smoking assessment comments: STATES 1/2PK/DAY/4OYRS QUIT DEC 2019 Alcohol intake: current Drinks per week: 5 Alcohol use details: 30 BEERS PER WEEK IN THE PAST Substance use: former Substance use type: former substance user and crack/cocaine Living arrangements: with roommate(s) Gender identity (if verbalized by the patient): Male Spiritual care concerns: No Agree to blood products: Yes Anes - Eval Final PreProcedure Day of Procedure 12/11/20 08:33 Patient weight: obese Heart: regular rate and rhythm Lungs: clear to auscultation and normal air movement Airway: Mallampati scale class II Neurological: alert and oriented Last oral intake: >/= 8 hours ASA classification: III Emergent: no Anesthetic plan: proceed Anesthesia type and monitoring: general GIVS Informed Consent: The patient's anesthetic plan and its attendant risks and benefits were discussed with the patient/family/POA. Questions were solicited and answers provided to the satisfaction of the pat
[2020-12-11] MEDS: LACTATED RINGERS 1,000 ML 150 ML IV CONT (08:40)
--- NOTE | 2020-12-11 09:06 | PM.HPGS ---
History of Present Illness History of Present Illness Consent: Risks, benefits, and alternatives have been discussed and questions answered. Patient agrees to proceed with procedure. Chief complaint: Neoplasm Screening Narrative: Edward Atwood is a 55 year old male here for first screening colonoscopy, father had colon cancer Review of Systems Constitutional: Constitutional: Denies headache(s) and Denies weakness Eyes: Eyes: Denies blurry vision ENT: Reports Normal hearing present, Denies headache(s) and Denies neck pain Cardiovascular: Cardiovascular: Denies chest pain and Denies dyspnea Respiratory: Respiratory: Denies dyspnea Gastrointestinal: Gastrointestinal: Reports no additional gastrointestinal complaints Genitourinary: Genitourinary: Denies dysuria Musculoskeletal: Musculoskeletal: Denies neck pain Integumentary/Breasts: Skin/Breast: Denies dry skin Neurologic: Reports Normal hearing present, Denies headache(s) and Denies weakness Psychiatric: Psychiatric: Denies anxiety Endocrine: Endocrine: Denies change in body appearance Hematologic/Lymphatic: Hematologic/Lymphatic: Denies easy bleeding Allergic/Immunologic: Allergic/Immunologic: Denies urticaria PMFSH Past Medical History Medical History Anxiety associated with depression Chronic pain syndrome Hypertension Left shoulder pain LAURENT (obstructive sleep apnea) Osteoarthritis Rheumatoid arthritis Surgical History Surgical History History of nasal surgery 01/2019 - Endoscopic anterior and posterior ethmoid, maxillary antrostomy, both sides. Status post total knee replacement (~06/14/20) Right Family History Family History Father Malignant neoplasm of prostate Family history of lung cancer, Onset Age: 74 Patient's father is Mother Patient's mother is , Onset Age: 69 Acute myocardial infarction, Onset Age: 69 Family history of cardiovascular disease, Onset Age: 71 Sibling Patient's brother is Other Family history of arthritis Hypertension Social History Social History Smoking packs per day: 0.75 Smoking cigarettes per day: 15.0 Years smoked: 40 Smoking pack-years: 30.00 Smoking status: Current some day smoker Tobacco type: cigarettes Second hand tobacco smoke exposure: No Smoking end date: 11/10/13 Additional smoking assessment comments: STATES 1/2PK/DAY/4OYRS QUIT DEC 2019 Alcohol intake: current Drinks per week: 5 Alcohol use details: 30 BEERS PER WEEK IN THE PAST Substance use: former Substance use type: former substance user and crack/cocaine Living arrangements: with roommate(s) Gender identity (if verbalized by the patient): Male Spiritual care concerns: No Agree to blood products: Yes Meds Home Medications and Allergies Home Medications Medication Instructions Recorded Confirmed Type Prilosec 20 mg PO DAILY 06/05/20 12/11/20 History ibuprofen [Motrin IB] 800 mg PO Q6H PRN 06/05/20 12/11/20 History venlafaxine 75 mg capsule,extended See Rx Instructions .ROUTE 09/26/20 12/11/20 Rx release 24 hr .COMPLEX #180 each infliximab 100 mg intravenous See Rx Instructions .ROUTE .COMPLEX 10/31/20 12/11/20 History solution amlodipine 10 mg tablet 10 mg PO DAILY #90 tablet 11/01/20 12/11/20 Rx aspirin 650 mg PO DAILY 11/24/20 12/11/20 History metoprolol succinate 50 mg 50 mg PO DAILY #90 tablet 11/28/20 12/11/20 Rx tablet,extended release 24 hr chlorhexidine gluconate 4 % 1 applic TOPICAL ONCE #237 ml 12/05/20 12/11/20 Rx topical liquid Allergies Allergy/AdvReac Type Severity Reaction Status Date / Time amoxicillin Allergy Severe Headache Verified 12/11/20 08:28 prednisone Allergy Unknown Nausea Verif
[2020-12-11 09:22] VITALS: BP 113/77; PULSE 80; RESP 20; O2SAT 96
[2020-12-11 09:32] VITALS: BP 117/84; PULSE 77; RESP 18; O2SAT 100
[2020-12-11 09:42] VITALS: BP 124/88; PULSE 74; RESP 20; O2SAT 99
[2020-12-11 09:52] VITALS: BP 125/89; PULSE 70; RESP 18; O2SAT 99
== END 2020-12-11 10:05 | disposition home or self-care (01) ==
PROVIDERS: PCP Family Medicine; Visit Provider Internal Medicine Gastroenterology
PROC: 0DJD8ZZ Inspection of Lower Intestinal Tract, Via Natural or Artificial Opening Endoscopic (ICD-10-PCS; CPT 45378; principal; 2020-12-11 09:45)
DX: Z12.11 Encounter for screening for malignant neoplasm of colon (principal); K64.8 Other hemorrhoids; Z80.0 Family history of malignant neoplasm of digestive organs; I10 Essential (primary) hypertension; G47.33 Obstructive sleep apnea (adult) (pediatric); M06.9 Rheumatoid arthritis, unspecified; G89.4 Chronic pain syndrome; F41.8 Other specified anxiety disorders; Z79.82 Long term (current) use of aspirin; F17.210 Nicotine dependence, cigarettes, uncomplicated; E66.9 Obesity, unspecified; Z68.33 Body mass index [BMI] 33.0-33.9, adult
CPT/HCPCS: 45378; C9803; J2704; J7120; U0003; U0005

== ENCOUNTER 2020-12-27 07:50 | Outpatient (CLI) | payer MEDICARE, SELFPAY ==
[2020-12-27 09:00] LABS: Basophils Absolute Auto 0.1 K/mm3 (0.0-0.1); Basophils Percent Auto 0.8 % (0.2-1.2); Eosinophils Absolute Auto 0.5 K/mm3 (0-0.3); Eosinophils Percent Auto 8.4 % (0-4.4); Hematocrit 42.6 % (42.0-52.0); Hemoglobin 14.4 g/dL (14.0-18.0); Immature Granulocyte Absolute 0.02 K/mm3 (0.00-0.031); Immature Granulocyte Percent A 0.3 % (0-0.5); Lymphocytes Absolute Auto 1.92 K/mm3 (0.9-3.2); Lymphocytes Percent Auto 30.6 % (18.3-44.2); Mean Corpuscular HGB Conc 33.8 g/dl (32-36); Mean Corpuscular Hemoglobin 29.4 pg (26-34); Mean Corpuscular Volume 87.1 fl (80-100); Mean Platelet Volume 10.5 fl (7.4-10.4); Monocytes Absolute Auto 0.6 K/mm3 (0.1-0.6); Monocytes Percent Auto 9.6 % (2.6-8.5); Neutrophils Absolute Auto 3.2 K/mm3 (1.3-6.7); Neutrophils Percent Auto 50.3 % (45.5-73.1); Platelet Count Result 295 k/mm3 (150-375); Red Blood Count 4.89 M/mm3 (4.6-6.20); Red Cell Distribution Width 13.6 % (11.5-14.5); White Blood Count 6.3 K/mm3 (4.5-10.0)
[2020-12-27 09:03] LABS: Add Urine Microscopic? NO; Appearance Urine Clear (Clear); Bilirubin Urine Negative (Negative); Blood Urine Negative (Negative); Color Urine Yellow (Yellow); Glucose Urine UA Negative (Negative); Ketones Urine Negative (Negative); Leukocyte Esterase Ur Negative LEU/UL (Negative); Nitrate Urine Negative (Negative); Protein Urine Negative (Negative); Specific Grav Ur 1.019 (1.001-1.035); Urobilinogen Urine Negative mg/dL (<2.0)
[2020-12-27 09:17] LABS: Albumin Level 4.2 g/dL (3.5-5.1); Anion Gap 9 mmol/L (8-16); Blood Urea Nitrogen 14 mg/dL (9-20); Calcium 8.9 mg/dL (8.4-10.2); Carbon Dioxide 24 mmol/L (22-30); Chloride 108 mmol/L (98-107); Estimated Glomerular Filt Rate > 60; Glucose 118 mg/dL (75-110); Potassium 4.4 mmol/L (3.4-5.0); Sodium 141 mmol/L (137-145)
[2020-12-27 09:21] LABS: Hemoglobin A1C 5.8 % (<5.7); Urine Cotinine NEGATIVE
[2020-12-27 09:22] LABS: INR 0.9; Prothrombin Time 12.6 Seconds (11.1-14.7)
[2020-12-27 09:23] LABS: Partial Thromboplastin Time 26.8 SECONDS (22.3-36.8)
== END 2020-12-27 07:51 | disposition home or self-care (01) ==
PROVIDERS: PCP Family Medicine; Visit Provider Orthopaedic Surgery
DX: Z01.818 Encounter for other preprocedural examination (principal); M19.90 Unspecified osteoarthritis, unspecified site
CPT/HCPCS: 80048; 80307; 81003; 82040; 83036; 85025; 85610; 85730; 86850; 86900; 86901; 87081

== ENCOUNTER → 2020-12-30 06:28 | Outpatient (CLI) | payer MEDICARE, SELFPAY ==
[2020-12-30 19:10] LABS: SARS-CoV-2 RNA PCR Negative
== END ==
PROVIDERS: PCP Family Medicine; Visit Provider Orthopaedic Surgery
DX: Z01.812 Encounter for preprocedural laboratory examination (principal); Z20.822 Contact with and (suspected) exposure to COVID-19
CPT/HCPCS: C9803; U0003; U0005

== ENCOUNTER 2021-01-03 00:32 | Day surgery (SDC) | payer MEDICARE, SELFPAY ==
[2020-09-18 14:52] VITALS: BP 194/122; PULSE 82; RESP 20; TEMP 36.8; O2SAT 98; BMI 31.8
--- NOTE | 2020-09-18 15:20 | PC.NURSE ---
PT HERE FOR PREANESTHESIA TESTING HEART RATE 82, BP LT ARM 194/122, RT ARM 188/124, PT DENIES CARDIAC SYMPTOMS AND STATES BP WAS HIGH AT DR. MAHONEY'S OFFICE (PT HAD [address] MAHONEY). PT STATES WAS INSTRUCTED TO CALL 'S OFFICE REGARDING HIGH BP. PT DID CALL DR. CHAVARRIA'S OFFICE AND LEFT MESSAGE & IS WAITING CALL BACK. PT INSTRUCTED TO INFORM MEGHAN FALLON @ DR. CHAVARRIA'S OFFICE OF SURGERY PLANNED FOR 09/27/20 AND INFORMED PT THAT IF BP IS NOT CONTROLLED SURGERY WILL NEED TO BE RESCHEDULED - UNDERSTANDING VOICED. DR. MAHONEY'S OFFICE CALLED, SPOKE WITH SREE AND AND INFORMED PT DID CALL DR OFFICE AND IS WAITING FOR CALL BACK.
[2020-12-27 08:18] VITALS: BMI 34.4
[2020-12-27 08:41] VITALS: BP 144/82; PULSE 80; RESP 20; TEMP 36.8; O2SAT 97
--- NOTE | 2021-01-02 10:55 | WPDANESEPPF ---
Anes - Initial Pre Proc Eval Procedure: Operation Date: 01/03/21 07:30 Proposed Procedures p Left Total Knee Arthroplasty, Right Knee Manipulation - Laz Kumar MD Date/Time: 01/02/21 10:55 Surgeon: Laz Kumar MD Pre Op Diagnosis: Left Knee DJD/ Right Knee Adhesive Capsulitis Patient Data Age: 55 Gender: M Height: 1.83 m Weight: 115.2 kg Last Vital Signs Temp 36.8 C 12/27/20 08:41 Pulse 80 12/27/20 08:41 Resp 20 12/27/20 08:41 BP 144/82 H 12/27/20 08:41 Pulse Ox 97 12/27/20 08:41 Allergies Allergy/AdvReac Type Severity Reaction Status Date / Time amoxicillin Allergy Severe Headache Verified 12/27/20 08:08 prednisone Allergy Unknown Nausea Verified 12/27/20 08:08 STEROIDS AdvReac Intermediate SICK AND Uncoded 12/27/20 08:08 NAUSEA Home Medications Medication Instructions Recorded Confirmed Type Prilosec 20 mg PO DAILY 06/05/20 01/03/21 History ibuprofen [Motrin IB] 800 mg PO Q6H PRN 06/05/20 01/03/21 History aspirin 325 mg PO DAILY 11/24/20 01/03/21 History chlorhexidine gluconate 4 % 1 applic TOPICAL ONCE #237 ml 12/05/20 01/03/21 Rx topical liquid B-Pollen 500 mg QAM 12/27/20 01/03/21 History amlodipine 10 mg PO QAM 12/27/20 01/03/21 History cholecalciferol (vitamin D3) 125 mcg PO DAILY 12/27/20 01/03/21 History metoprolol succinate 50 mg PO QAM 12/27/20 01/03/21 History venlafaxine 75 mg BID 12/27/20 01/03/21 History zinc 50 mg PO QAM 12/27/20 01/03/21 History mupirocin 2 % topical ointment 1 applic TOPICAL BID #15 g 12/29/20 Rx sulfamethoxazole 800 1 tablet PO BID #14 tablet 12/29/20 Rx mg-trimethoprim 160 mg tablet Patient hx anesthesia problems: none Family hx anesthesia problems: none PMFSH Past Medical History Medical History Anxiety associated with depression Chronic pain syndrome Family history of colon cancer in father Hypertension Left shoulder pain LAURENT (obstructive sleep apnea) Osteoarthritis Rheumatoid arthritis Surgical History Surgical History History of nasal surgery 01/2019 - Endoscopic anterior and posterior ethmoid, maxillary antrostomy, both sides. Status post total knee replacement (~06/14/20) Right Family History Family History Father Malignant neoplasm of prostate Family history of lung cancer, Onset Age: 74 Patient's father is Mother Patient's mother is , Onset Age: 69 Acute myocardial infarction, Onset Age: 69 Family history of cardiovascular disease, Onset Age: 71 Sibling Patient's brother is Other Family history of arthritis Hypertension Social History Social History Smoking status: Former smoker Tobacco type: cigarettes Second hand tobacco smoke exposure: No Additional smoking assessment comments: STATES 1/2PK/DAY/4OYRS QUIT DEC 2019 Alcohol intake: current Drinks per week: 5 Alcohol use details: STATES VERY RARELY - 2-4 DRINKS YEAR Substance use: former Substance use type: former substance user and crack/cocaine Living arrangements: with family Gender identity (if verbalized by the patient): Male Spiritual care concerns: No Agree to blood products: Yes Anes - Eval Final PreProcedure Day of Procedure 01/02/21 10:55 Patient weight: obese Heart: regular rate and rhythm Lungs: clear to auscultation and normal air movement Airway: Mallampati scale class III Neurological: alert and oriented Last oral intake: >/= 8 hours ASA classification: III Emergent: no Anesthetic plan: proceed Anesthesia type and monitoring: general LMA and standard monitoring Informed Consent: The patient's anesthetic plan and its attendant risks and benefits were discussed with the patient/family/POA. Question
--- NOTE | 2021-01-02 10:56 | WPDANESPNB ---
Anes - Peripheral Nerve Block Date/Time: 01/02/21 10:56 I have discussed with the patient/family/POA the placement of a peripheral nerve block for post-operative pain management, including associated risks, benefits, complications, and side effects. Alternative methods of post-operative analgesia were detailed. Questions were solicited and answers provided to the satisfaction of the patient/family/POA. Time-Out: A pre-procedural Time-Out was completed immediately before starting the procedure and confirmed: Patient Identification, Site, Procedure, Patient Position and the Availability of Requisite Equipment. Clinical Indications: Acute post-operative pain management requested by the operative surgeon. Nerve Block Insertion Note Anes-nerve block: adductor canal left Patient position: supine Skin prep: chlorhexidine Needle: 22 gauge, stimulating, insulated echogenic needle. Needle length: 80 mm Technique: ultrasound Injectate: bupivacaine 0.5% with epi 5 mcg/ml (30cc - no epi) Observations: tolerated well Complications: none Procedure start time:: 733 Procedure end time:: 736
[2021-01-03] VITALS (14 sets, daily range): BP systolic 123–168; BP diastolic 76–95; PULSE 75–96; RESP 12–22; TEMP 36.1–36.6; O2SAT 93–98
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
[2021-01-03] MEDS: TRANEXAMIC ACID 1,000MG/ISO100 1,000 MG/100 ML BAG 200 MG IVPB (06:47)
[2021-01-03] MEDS: ACETAMINOPHEN 500 MG TABLET 1000 MG PO (06:47)
[2021-01-03] MEDS: LACTATED RINGERS 1,000 ML 30 ML IV CONT ×2 (06:47→10:28)
--- NOTE | 2021-01-03 07:23 | WPDHPUPDATE1 ---
History and Physical Update Update Date/Time: 01/03/21 07:23 History and Physical has been reviewed, including an updated exam of the patient. There are NO changes in the patient's condition. Risks, benefits, and alternatives have been discussed and questions answered. Patient agrees to proceed with procedure.
[2021-01-03] MEDS: ceFAZolin 2 GM/D5W 50 ML 2 GM/50 ML BAG IVPB ×2 (07:52→16:55)
[2021-01-03] MEDS: GENTAMICIN BONE CEMENT REFOBACIN 1 EACH TOPICAL (09:54)
--- NOTE | 2021-01-03 10:23 | PM.PROC ---
Procedure Note - Detailed Date of procedure: 01/03/21 Pre-op diagnosis: Left Knee DJD/ Right Knee Adhesive Capsulitis Post-op diagnosis: other (left knee djd) Procedure performed: L TKA Description of procedure: THE LEFT KNEE WAS PREPPED AND DRAPED IN THE STERILE FASHION. A MIDLINE SKIN INCISION WAS MADE. A MEDIAL PARAPATELLAR ARTHROTOMY WAS MADE. THE PATELLA WAS EVERTED. THERE WAS TRICOMPARTMENT DJD. THERE WAS MINIMAL PATELLA DJD. AN INTRAMEDULLARY ANA WAS PLACED IN THE FEMUR. A DISTAL FEMORAL CUT WAS MADE IN 5 DEGREES OF VALGUS REMOVING APPROXIMATELY 9 MM OF BONE FROM THE DISTAL FEMUR. THE FEMUR WAS SIZED TO 65. A 65 FEMORAL CUTTING BLOCK WAS PLACED IN 3 DEGREES OF EXTERNAL ROTATION AND IN ALIGNMENT WITH KOBE'S LINE AND THE TRANSEPICONDYLAR AXIS. ANTERIOR POSTERIOR AND CHAMFER CUTS WERE MADE. THE CUTS WERE EXCELLENT. NEXT AN INTRAMEDULLARY CUTTING GUIDE WAS PLACED IN THE TIBIA. A TRANS TIBIAL CUT WAS MADE ALONG THE LONG AXIS OF THE TIBIA. APPROXIMATELY 10 MM OF BONE WAS REMOVED FROM THE HIGH SIDE OF THE TIBIA. THE TIBIA WAS THEN PLANED TO A SMOOTH SURFACE. POSTERIOR FEMORAL OSTEOPHYTES WERE REMOVED FROM THE FEMORAL CONDYLES. A 79 TIBIAL TRIAL WAS PLACED IN ALIGNMENT WITH THE 1/3 MEDIAL ASPECT OF THE TIBIAL TUBERCLE. THEN A 65 FEMORAL TRIAL COMPONENT WAS PLACED. BOTH HAD EXCELLENT FITS. EVENTUALLY A 10 MM POLYETHYLENE TRIAL COMPONENT WAS PLACED. THE KNEE WAS TAKEN THROUGH A RANGE OF MOTION. THE KNEE CAME OUT TO FULL EXTENSION. THERE WAS NO ABNORMAL TILT TO THE PATELLA. THERE WAS GOOD A/P AND VARUS/VALGUS STABILITY. THERE WAS NO EXCESSIVE ROLL BACK WITH FLEXION. THE TRIAL COMPONENTS WERE REMOVED. THEN A 65 FEMORAL COMPONENT AND 79 TIBIAL COMPONENT WITH A 10 CR POLYETHYLENE COMPONENT WERE CEMENTED INTO PLACE. ONCE THE CEMENT WAS HARD THE KNEE WAS TAKEN THROUGH A ROM AGAIN AND FOUND TO BE STABLE WITH NO PATELLA TILT NO EXCESSIVE ROLL BACK WITH FLEXION AND GOOD STABILITY WITH COMPLETE AND FULL EXTENSION. THE KNEE WAS IRRIGATED WITH STERILE BETADINE AND WATER FOR ABOUT 3 MINUTES. THE BLEEDERS WERE CAUTERIZED. THE ARTHROTOMY WAS REPAIRED WITH NUMBER 1 VICRYL. THE SUB CUTANEOUS LAYER WITH 2-0 VICRYL AND THE SKIN WITH GANESH. THE WOUND WAS WASHED AND A STERILE DRESSING WAS APPLIED. THE RIGHT KNEE WAS EXAMINED PREOPERATIVELY WITH THE PATIENT AWAKE AND WAS FOUND TO BE SUPPLE WITH GOOD ROM AT GREATER THAN 125 DEG SO A MANIPULATION WAS NOT PREFORMED. PATIENT WAS EXTUBATED. Anesthesia: GETA Surgeon: Laz Kumar MD Estimated blood loss (mL): 100 Complications: No immediate complications Condition: stable Disposition: PACU
--- NOTE | 2021-01-03 12:39 | ADMGEN ---
This patient, Edward Atwood, was admitted to Medical Room 248-. Patient/family oriented to hospital policies and general routines including ID bracelet, bed and alarms, visiting hours, pain management, procedures, bathroom and other care routines, personal items, smoking policy, room service/diet, and visiting hours. Information on how to activate the Rapid Response Team has been discussed. Patient/Family are encouraged to report perceived risks to care and to ask questions if they do not understand what they are told or what they should do.
[2021-01-03 12:59] LABS: Prothrombin Time 13.3 Seconds (11.1-14.7)
--- NOTE | 2021-01-03 15:05 | PM.IMCN ---
Assessment and Plan Assessment and plan (1) DJD (degenerative joint disease) of knee: Qualifiers: Osteoarthritis type: primary Laterality: left Qualified Code(s): M17.12 - Unilateral primary osteoarthritis, left knee Code(s): M17.10 - Unilateral primary osteoarthritis, unspecified knee Status: Acute Assessment and Plan: Post op left TKA per Dr. Kumar today. Doing well today. Hospitalist service consulted for medical management Post op care, pain management, PT/OT, DVT ppx per primary service Per patient, antibiotics prescribed for sinus infection by Dr. Kumar prior to surgery; will defer resuming this to Dr. Kumar Will continue to follow with you (2) Hypertension: Qualifiers: Hypertension type: essential hypertension Qualified Code(s): I10 - Essential (primary) hypertension Code(s): I10 - Essential (primary) hypertension Status: Chronic Assessment and Plan: BP seems well controlled at 130s sys continue home antihypertensives Monitor (3) Anxiety associated with depression: Code(s): F41.8 - Other specified anxiety disorders Status: Acute Assessment and Plan: No acute issues Continue home venlafaxine Additional Plan Thank you for allowing the Hospitalist team to care for this patient during their stay. We will continue to follow with you. Please call with any questions HPI Data of Consult Consult date: 01/03/21 Requesting Physician: Laz Kumar MD Primary Care Provider: Candelario Jay MD Consult Narrative Narrative: Edward Atwood is a 55 year old male with history of HTN, anxiety/depression, dyslipidemia, LAURENT, RA, and OA who presented to the hospital today, 01/03, for elective Lt TKA per Dr. Kumar. Hospitalist service consulted for medical management for comorbid conditions. Patient states he has had bilateral knee pain for several years now and recently underwent Rt TKA in 06/2020 with minimal complications, but does note he has had some swelling and stiffness in the right knee recently, and, in fact, there were plans for right knee ALEX, but was deferred per patient. He notes that he has managed his b/l DJD with conservative management with RICE and OTC pain medications, then knee injections with less and less effectiveness, thus decided to proceed with Rt TKA in 06/2020 and Lt TKA today. Patient states he is doing well postoperatively; pain is reasonably controlled. Has sensation in left leg distal to knee joint. He notes he recently was placed on Bactrim for possible sinus infection per Dr. Kumar and has only a couple days left. 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 He notes occasionally getting TAYLOR for which his PCP is following. No other complaints at the moment. Denies f/c/s, headaches, dizziness, lightheadedness, changes in v/h, cp/palpitations, current sob/cough, n/v/d/c, abd pain, changes in BMs, dysuria, hematuria, cloudy urine, right calf pain/swelling. Review of Systems Review of Systems: All systems reviewed & are unremarkable except as noted in HPI and below PMFSH Past Medical History Medical History Anxiety associated with depression Chronic pain syndrome Family history of colon cancer in father Hypertension Left shoulder pain LAURENT (obstructive sleep apnea) Osteoarthritis Rheumatoid arthritis Surgical History Surgical History History of nasal surgery 01/2019 - Endoscopic anterior and posterior ethmoid, maxillary antrostomy, both sides. Status post total knee replacement (~06/14/20) Right Family History Family History (Reviewed 01/03/21
[2021-01-03] MEDS: WARFARIN (*PBKC) 5 MG TABLET PO (16:55)
[2021-01-03] MEDS: DOCUSATE SODIUM 100 MG CAPSULE PO (16:55)
[2021-01-03] MEDS: CELECOXIB 200 MG CAPSULE PO (16:55)
[2021-01-03] MEDS: VENLAFAXINE HCL XR 75 MG CAP.ER.24H PO (21:25)
[2021-01-03] MEDS: FAMOTIDINE 20 MG TABLET PO (21:25)
[2021-01-04] VITALS: BP 120/59; PULSE 78; RESP 16; TEMP 36.2; O2SAT 96
[2021-01-04] MEDS: ceFAZolin 2 GM/D5W 50 ML 2 GM/50 ML BAG IVPB ×2 (00:20→11:07)
[2021-01-04 05:00] VITALS: BP 129/71; PULSE 75; RESP 16; TEMP 36.6; O2SAT 98
[2021-01-04 06:04] LABS: Basophils Percent Auto 0.2 % (0.2-1.2); Hematocrit 33.7 % (42.0-52.0); Hemoglobin 11.2 g/dL (14.0-18.0); Immature Granulocyte Absolute 0.04 K/mm3 (0.00-0.031); Immature Granulocyte Percent A 0.3 % (0-0.5); Lymphocytes Absolute Auto 1.74 K/mm3 (0.9-3.2); Lymphocytes Percent Auto 13.2 % (18.3-44.2); Mean Corpuscular HGB Conc 33.2 g/dl (32-36); Mean Corpuscular Hemoglobin 28.7 pg (26-34); Mean Corpuscular Volume 86.4 fl (80-100); Mean Platelet Volume 10.8 fl (7.4-10.4); Monocytes Absolute Auto 1.5 K/mm3 (0.1-0.6); Monocytes Percent Auto 11.2 % (2.6-8.5); Neutrophils Absolute Auto 9.9 K/mm3 (1.3-6.7); Neutrophils Percent Auto 75.1 % (45.5-73.1); Platelet Count Result 271 k/mm3 (150-375); Red Cell Distribution Width 13.9 % (11.5-14.5); White Blood Count 13.2 K/mm3 (4.5-10.0)
[2021-01-04 06:26] LABS: Anion Gap 10 mmol/L (8-16); Blood Urea Nitrogen 18 mg/dL (9-20); Calcium 8.8 mg/dL (8.4-10.2); Carbon Dioxide 21 mmol/L (22-30); Chloride 108 mmol/L (98-107); Estimated CRCL calculation 96 ml/min; Estimated Glomerular Filt Rate > 60; Glucose 123 mg/dL (75-110); Potassium 4.5 mmol/L (3.4-5.0); Sodium 139 mmol/L (137-145)
[2021-01-04] MEDS: CELECOXIB 200 MG CAPSULE PO (07:49)
[2021-01-04 08:43] VITALS: O2SAT 98
[2021-01-04] MEDS: amLODIPine BESYLATE 5 MG TABLET 10 MG PO (09:03)
[2021-01-04] MEDS: PANTOPRAZOLE 40 MG TABLET PO (09:03)
[2021-01-04] MEDS: CHOLECALCIFEROL 1,000 UNITS TABLET 5000 UNITS PO (09:03)
[2021-01-04] MEDS: FAMOTIDINE 20 MG TABLET PO (09:03)
[2021-01-04] MEDS: ZINC SULFATE 220 MG CAPSULE PO (09:03)
[2021-01-04 09:04] VITALS: PULSE 75
[2021-01-04] MEDS: DOCUSATE SODIUM 100 MG CAPSULE PO (09:04)
[2021-01-04] MEDS: VENLAFAXINE HCL XR 75 MG CAP.ER.24H PO (09:04)
[2021-01-04] MEDS: METOPROLOL SUCCINATE EXT REL 50 MG TABCR PO (09:04)
[2021-01-04] MEDS: oxyCODONE/ACETAMINOPHEN (*CRX) 5-325 MG TABLET 1 TABLET PO (09:05)
--- NOTE | 2021-01-04 09:26 | PM.PNORT ---
Progress Note: A&P Assessment and Plan (1) Total knee replacement status: Qualifiers: Laterality: left Qualified Code(s): Z96.652 - Presence of left artificial knee joint Code(s): Z96.659 - Presence of unspecified artificial knee joint Status: Acute Assessment and Plan: POD #1: Left TKA Continue PT/OT. WBAT LLE. Walker. HIGH FALL RISK. Continue pain control. Ice knee. DVT prophylaxis. SCDs. Incentive Spirometry. Monitor dressing. Change prior to discharge. Dispo: Home with Home Health, likely today, pending progress with PT/OT. Subjective Subjective Date/Time Seen: 01/04/ 09:26 POD #1: Left TKA Complains of swelling to right forearm and left hand s/p infiltration of IV. IVs removed. Pain well controlled. No new concerns. Awaiting PT/OT. Review of Systems Review of Systems: All systems reviewed & are unremarkable except as noted in HPI and below Constitutional: Constitutional: Denies fever(s) and Denies headache(s) ENT: Denies headache(s) Cardiovascular: Cardiovascular: Denies chest pain, Denies diaphoresis, Denies palpitations and Denies dyspnea Respiratory: Respiratory: Denies dyspnea Gastrointestinal: Gastrointestinal: Denies abdominal pain, Denies constipation, Denies nausea and Denies vomiting Genitourinary: Genitourinary: Denies dysuria and Reports nocturia Musculoskeletal: Musculoskeletal: Reports arthralgias (Left Knee ), Reports joint swelling (Left Knee ) and Reports limited range of motion (ROM limited due to recent surgical intervention LEFT Knee ) Neurologic: Denies headache(s) Endocrine: Endocrine: Denies palpitations Exam Const: General: comfortable and no acute distress Resp: Effort & Inspection: normal respiratory effort Cardio: Rate: regular rate Rhythm: regular rhythm GI: GI Palp: Yes Soft to palpation, No Tenderness to palpation present (GI) and No Guarding due to palpation present (GI) Skin: Wounds: wounds noted Other: Incision c/d/i. No surrounding redness/warmth. No hematoma. Mild ecchymosis. No wound dehiscence Neuro: Cognition (Neuro): normal cognition Other: NV intact aside from block. Moves toes. Sensation intact to light touch. +ankle dorsiflexion/plantarflexion. Extrem: Right upper extremity: normal to inspection, full ROM and normal capillary refill Left upper extremity: normal to inspection, full ROM and normal capillary refill Right lower extremity: normal to inspection, full ROM (ROM limited due to recent surgical intervention ) and knee (previous right TKA incision well-healed ) Details: normal ROM; no tenderness and no swelling Left lower extremity: normal to inspection, normal capillary refill and knee Details: tenderness (diffuse ), swelling (moderate consistent to recent surgery ), abnormal ROM (limited due to recent surgery ) and ecchymosis (as expected with recent surgery. NO hematoma. ) Other: Incision left TKA dressing c/d/i. No hematoma. No signs of infection. No wound dehiscence. Psych: Mental Status: mental status grossly normal Objective Data Vital Signs Vital Signs: Vital Signs - 24 hr 01/03/21 10:28 01/03/21 10:40 01/03/21 10:55 Temperature 36.4 C Pulse Rate 93 93 93 Respiratory Rate 14 18 18 Blood Pressure 138/94 H 132/86 134/95 H Pulse Oximetry 94 96 97 01/03/21 11:10 01/03/21 11:25 01/03/21 11:40 Temperature Pulse Rate 95 92 91 Respiratory Rate 12 16 14 Blood Pressure 137/90 143/92 H 130/84 Pulse Oximetry 94 93 95 01/03/21 11:55 01/03/21 12:25 01/03/21 12:40 Temperature 36.1 C L 36.1 C L Pulse Rate 90 75 85 Respiratory Rate 14 18 18 Blood Pressure 123/85 133/81 128/76 Pulse Oximetry 96 98 94 01/03/21 13:10 01/03/21 18:00 01/03/21 18:50 Temperature 36.1 C L 36.3 C L Pulse Rate 91 96 Respiratory Rate 16 22 H Blood Pressure 130/90 168/79 H Pulse Oximetry 94 96 98 01/03/21 20:00 01/04/21 00:00 01/04/21 05:00 Temperature 36.5 C 36.2 C L 36.6 C Pulse Rate 81 78 7
[2021-01-04 10:00] VITALS: BP 137/78; PULSE 73; RESP 14; TEMP 36.3; O2SAT 95
[2021-01-04] MEDS: ASPIRIN 325 MG TABLET 650 MG PO (10:23)
[2021-01-04 10:38] VITALS: BP 132/80; PULSE 92; RESP 18; TEMP 36.4; O2SAT 98
--- NOTE | 2021-01-04 12:02 | P.PNAN_ITS ---
Anes - Prog Note Post-Op Date/Time: 01/04/21 12:02 Cardiovascular status: normal Respiratory status: normal Airway patency: baseline Mental status: baseline Post-Op hydration status: normal Vital Signs: Last Vital Signs Temp 36.4 C 01/04/21 10:38 Pulse 92 01/04/21 10:38 Resp 18 01/04/21 10:38 BP 132/80 01/04/21 10:38 Pulse Ox 98 01/04/21 10:38 Pain Score (VAS): 0/10. Patient resting up to bedside chair at time of assessment, appears comfortable. I/O: Intake & Output 01/03/21 01/04/21 01/04/21 23:59 07:59 15:59 Intake Total 700 450 490 Output Total 1500 Balance 700 -1050 490 Laboratory Tests 01/04/21 05:05 01/04/21 05:05 01/03/21 01/04/21 01/04/21 12:42 05:05 05:05 WBC 13.2 H RBC 3.90 L Hgb 11.2 L D Hct 33.7 L MCV 86.4 MCH 28.7 MCHC 33.2 RDW 13.9 Plt Count 271 MPV 10.8 H Immature Gran % (Auto) 0.3 Neut % (Auto) 75.1 H Lymph % (Auto) 13.2 L [place] % (Auto) 11.2 H Eos % (Auto) 0.0 Baso % (Auto) 0.2 Lymph # (Auto) 1.74 [place] # (Auto) 1.5 H Eos # (Auto) 0.0 Baso # (Auto) 0.0 Abs Immat Gran (auto) 0.04 H Absolute Neuts (auto) 9.9 H Absolute Nucleated RBC 0.0 Nucleated RBC % 0.0 PT 13.3 INR 1.0 Sodium 139 Potassium 4.5 Chloride 108 H Carbon Dioxide 21 L Anion Gap 10 BUN 18 Creatinine 1.00 Estim Creat Clear Calc 96 Estimated GFR > 60 Glucose 123 H Calcium 8.8 Post-procedural complaints: none Patient Feedback: Patient satisfied with anesthetic care.
--- NOTE | 2021-01-04 12:21 | PM.DS ---
DS: Admitting Diagnosis Admitting Diagnosis Admitting Diagnosis: Left Knee DJD DS: Discharge Diagnosis Discharge Diagnosis (1) Total knee replacement status: Qualifiers: Laterality: left Qualified Code(s): Z96.652 - Presence of left artificial knee joint Code(s): Z96.659 - Presence of unspecified artificial knee joint Status: Acute Assessment and Plan: POD #1: Left TKA Continue PT/OT. WBAT LLE. Walker. HIGH FALL RISK. Continue pain control. Ice knee. DVT prophylaxis. SCDs. Incentive Spirometry. Monitor dressing. Change prior to discharge. Dispo: Home with Home Health today DS: Summary Hospital Course Reason for hospitalization: Left TKA Hospital Course: 55-year-old male admitted status post left total knee replacement by Dr. Kumar for postoperative pain control, medical management and PT/ OT. Patient has had a stable hospitalization. His pain has been well controlled. He has progress well with PT/OT and is deemed safe to go home with home health. He will follow up in the outpatient orthopedic clinic in 3 weeks. Status at Discharge Functional status at discharge: uses cane/walker Overall status at discharge: patient is progressing back to baseline Time Spent with Patient Time attestation: Total time spent providing and/or coordinating discharge services: Exam Const: General: comfortable and no acute distress Resp: Effort & Inspection: normal respiratory effort Cardio: Rate: regular rate Rhythm: regular rhythm Skin: Wounds: wounds noted Other: Incision c/d/i. No surrounding redness/warmth. No hematoma. Mild ecchymosis. No wound dehiscence Neuro: Cognition (Neuro): normal cognition Other: NV intact aside from block. Moves toes. Sensation intact to light touch. +ankle dorsiflexion/plantarflexion. Extrem: Right upper extremity: normal to inspection, full ROM and normal capillary refill Left upper extremity: normal to inspection, full ROM and normal capillary refill Right lower extremity: normal to inspection, full ROM (ROM limited due to recent surgical intervention ) and knee (previous right TKA incision well-healed ) Details: normal ROM; no tenderness and no swelling Left lower extremity: normal to inspection, normal capillary refill and knee Details: tenderness (diffuse ), swelling (moderate consistent to recent surgery ), abnormal ROM (limited due to recent surgery ) and ecchymosis (as expected with recent surgery. NO hematoma. ) Other: Incision left TKA dressing c/d/i. No hematoma. No signs of infection. No wound dehiscence. Psych: Mental Status: mental status grossly normal DS: Data Data Completed and Pending Labs on day of discharge: Labs from last 24 hours 01/04/21 01/04/21 01/03/21 05:05 05:05 12:42 WBC 13.2 H RBC 3.90 L Hgb 11.2 L D Hct 33.7 L MCV 86.4 MCH 28.7 MCHC 33.2 RDW 13.9 Plt Count 271 MPV 10.8 H Immature Gran % (Auto) 0.3 Neut % (Auto) 75.1 H Lymph % (Auto) 13.2 L [place] % (Auto) 11.2 H Eos % (Auto) 0.0 Baso % (Auto) 0.2 Lymph # (Auto) 1.74 [place] # (Auto) 1.5 H Eos # (Auto) 0.0 Baso # (Auto) 0.0 Abs Immat Gran (auto) 0.04 H Absolute Neuts (auto) 9.9 H Absolute Nucleated RBC 0.0 Nucleated RBC % 0.0 PT 13.3 INR 1.0 Sodium 139 Potassium 4.5 Chloride 108 H Carbon Dioxide 21 L Anion Gap 10 BUN 18 Creatinine 1.00 Estim Creat Clear Calc 96 Estimated GFR > 60 Glucose 123 H Calcium 8.8 Discharge Plan Discharge Patient Disposition: Home Health Service Discharge Instructions: Dr. Laz Kumar [phone] Orthopedic Discharge Instructions: Your dressing will be changed today prior to your discharge. You will be sent with one additional dressing to be changed by the home health RN in 5 days. Your carter will be removed on the 14th day after surgery. You may shower but DO NOT submerge in a bath tub until released by Dr. Amezcua
--- NOTE | 2021-01-04 13:28 | PC.NURSE ---
On 01/04/21, the student, [Estefania Smiley ], provided care and completed [facility] documentation on this patient. I have reviewed the student's documentation and agree with the findings.
== END 2021-01-04 12:48 | disposition home health service (06) ==
LOC: ANHSURGERY 05:52 → ANH2MED 12:11
PROVIDERS: PCP Family Medicine; Visit Provider Orthopaedic Surgery
PROC: (CPT 27447; principal; 2021-01-03 07:30)
DX: M17.12 Unilateral primary osteoarthritis, left knee (principal); G89.18 Other acute postprocedural pain; I10 Essential (primary) hypertension; G47.33 Obstructive sleep apnea (adult) (pediatric); M06.9 Rheumatoid arthritis, unspecified; F41.8 Other specified anxiety disorders; G89.4 Chronic pain syndrome; Z96.651 Presence of right artificial knee joint; Z87.891 Personal history of nicotine dependence; E66.9 Obesity, unspecified; Z68.33 Body mass index [BMI] 33.0-33.9, adult
CPT/HCPCS: 27447; 64447; 36415; 73560; 80048; 80307; 81003; 82040; 83036; 85025; 85610; 85730; 86850; 86900; 86901; 87081; 97110; 97116; 97161; 97165; 97530; 97535; A9270; C1713; C1776; C9803; J0171; J0330; J0690; J1100; J1170; J2250; J2270; J2405; J2704; J2795; J3010; J3370; J7120; U0003; U0005

== ENCOUNTER 2021-03-08 09:26 | Outpatient (CLI) | payer MEDICARE, SELFPAY ==
--- NOTE | ~2021-03-08 | XR_ITS ---
EXAMINATION: XR chest 2V 03/08/2021 09:40 INDICATION: Shortness of breath PROCEDURE: PA and lateral views of the chest COMPARISON: 05/31/2020 FINDINGS: The lungs are clear. The cardiomediastinal silhouette is within normal limits. There are no pleural effusions. There is no pneumothorax suspected. IMPRESSION: 1: NO ACUTE CARDIOPULMONARY DISEASE. Reviewed, dictated and finalized at location B.
[2021-03-08 10:10] LABS: Basophils Absolute Auto 0.1 K/mm3 (0.0-0.1); Basophils Percent Auto 0.7 % (0.2-1.2); Eosinophils Absolute Auto 0.3 K/mm3 (0-0.3); Eosinophils Percent Auto 3.5 % (0-4.4); Hematocrit 38.9 % (42.0-52.0); Hemoglobin 12.6 g/dL (14.0-18.0); Immature Granulocyte Absolute 0.02 K/mm3 (0.00-0.031); Immature Granulocyte Percent A 0.3 % (0-0.5); Lymphocytes Absolute Auto 1.92 K/mm3 (0.9-3.2); Lymphocytes Percent Auto 25.1 % (18.3-44.2); Mean Corpuscular HGB Conc 32.4 g/dl (32-36); Mean Corpuscular Hemoglobin 29.6 pg (26-34); Mean Corpuscular Volume 91.5 fl (80-100); Mean Platelet Volume 10.8 fl (7.4-10.4); Monocytes Absolute Auto 0.9 K/mm3 (0.1-0.6); Monocytes Percent Auto 11.4 % (2.6-8.5); Neutrophils Absolute Auto 4.5 K/mm3 (1.3-6.7); Platelet Count Result 260 k/mm3 (150-375); Red Blood Count 4.25 M/mm3 (4.6-6.20); Red Cell Distribution Width 13.2 % (11.5-14.5); White Blood Count 7.7 K/mm3 (4.5-10.0)
[2021-03-08 10:27] LABS: Alanine Aminotransferase 26 U/L (4-50); Albumin Level 4.2 g/dL (3.5-5.1); Alkaline Phosphatase 74 U/L (38-126); Anion Gap 9 mmol/L (8-16); Aspartate Amino Transferase 28 U/L (17-59); Bilirubin,Total 0.6 mg/dL (0.2-1.3); Blood Urea Nitrogen 13 mg/dL (9-20); Calcium 8.8 mg/dL (8.4-10.2); Carbon Dioxide 25 mmol/L (22-30); Chloride 106 mmol/L (98-107); Estimated Glomerular Filt Rate > 60; Glucose 110 mg/dL (75-110); Potassium 4.6 mmol/L (3.4-5.0); Sodium 140 mmol/L (137-145)
[2021-03-08 10:35] LABS: NT Pro B Type Natriuretic Pept 60 pg/mL (5-100)
[2021-03-08 11:00] LABS: D Dimer < 0.22 ug/mL (<0.48)
== END 2021-03-08 09:27 | disposition home or self-care (01) ==
LOC: ANHIMG 09:29
PROVIDERS: PCP Family Medicine; Visit Provider Family Medicine
DX: R06.02 Shortness of breath (principal); I10 Essential (primary) hypertension
CPT/HCPCS: 36415; 71046; 80053; 83880; 85025; 85380

== ENCOUNTER 2021-05-29 11:54 | Outpatient (CLI) | payer MEDICARE, SELFPAY ==
[2021-05-29 12:11] LABS: Basophils Percent Auto 0.4 % (0.2-1.2); Eosinophils Absolute Auto 0.3 K/mm3 (0-0.3); Eosinophils Percent Auto 2.7 % (0-4.4); Hematocrit 44.4 % (42.0-52.0); Hemoglobin 14.3 g/dL (14.0-18.0); Immature Granulocyte Absolute 0.02 K/mm3 (0.00-0.031); Immature Granulocyte Percent A 0.2 % (0-0.5); Lymphocytes Absolute Auto 2.45 K/mm3 (0.9-3.2); Lymphocytes Percent Auto 26.7 % (18.3-44.2); Mean Corpuscular HGB Conc 32.2 g/dl (32-36); Mean Corpuscular Hemoglobin 28.2 pg (26-34); Mean Corpuscular Volume 87.6 fl (80-100); Mean Platelet Volume 10.3 fl (7.4-10.4); Monocytes Absolute Auto 0.8 K/mm3 (0.1-0.6); Monocytes Percent Auto 8.8 % (2.6-8.5); Neutrophils Absolute Auto 5.6 K/mm3 (1.3-6.7); Neutrophils Percent Auto 61.2 % (45.5-73.1); Platelet Count Result 327 k/mm3 (150-375); Red Blood Count 5.07 M/mm3 (4.6-6.20); Red Cell Distribution Width 13.4 % (11.5-14.5); White Blood Count 9.2 K/mm3 (4.5-10.0)
[2021-05-29 12:19] LABS: Hemoglobin A1C 6.4 % (<5.7)
[2021-05-29 12:22] LABS: Alanine Aminotransferase 35 U/L (4-50); Albumin Level 4.6 g/dL (3.5-5.1); Alkaline Phosphatase 85 U/L (38-126); Anion Gap 9 mmol/L (8-16); Aspartate Amino Transferase 33 U/L (17-59); Bilirubin,Total 0.6 mg/dL (0.2-1.3); Blood Urea Nitrogen 12 mg/dL (9-20); Calcium 9.6 mg/dL (8.4-10.2); Carbon Dioxide 24 mmol/L (22-30); Chloride 108 mmol/L (98-107); Estimated Glomerular Filt Rate > 60; Glucose 95 mg/dL (65-110); Potassium 4.2 mmol/L (3.4-5.0); Sodium 141 mmol/L (137-145)
== END 2021-05-29 11:55 | disposition home or self-care (01) ==
LOC: ANHLAB 11:57
PROVIDERS: PCP Family Medicine; Visit Provider Family Medicine
DX: D64.9 Anemia, unspecified (principal); I10 Essential (primary) hypertension; R73.03 Prediabetes
CPT/HCPCS: 36415; 80053; 83036; 85025

== ENCOUNTER 2021-10-18 11:11 | Outpatient (CLI) | payer MEDICARE, SELFPAY ==
--- NOTE | ~2021-10-18 | CT_ITS ---
EXAMINATION: CT sinus wo con DATE: 10/18/2021 11:36 INDICATION: Nasal polyp and congestion TECHNIQUE: Computed tomography (CT) of the paranasal sinuses was performed without intravenous contra st. The dose-length product (DLP) was 279.81 mGy-cm. Iterative reconstruction was used. COMPARISON: None FINDINGS: There is normal development and pneumatization of the paranasal sinuses. There is moderate mucosal thickening of the right maxillary sinus. There is minimal mucosal thickening of the left maxi llary sinus. The right sphenoid sinus is clear. There is mild mucosal thickening of the left sphenoid sinus in the ethmoidal air cells. There is moderate mucosal thickening inferiorly in the frontal sin uses. The bilateral ostiomeatal complexes are occluded. There are 5 mm of rightward deviation of the nasal septum. Visualized soft tissues are unremarkable. IMPRESSION: 1. Sinus disease as detailed above. Reviewed, dictated and finalized at location A. [employer]
== END 2021-10-18 11:12 | disposition home or self-care (01) ==
LOC: ANHIMG 11:15
PROVIDERS: PCP Family Medicine; Visit Provider Otolaryngology
DX: J33.9 Nasal polyp, unspecified (principal)
CPT/HCPCS: 70486

== ENCOUNTER → 2021-11-26 00:36 | Outpatient (CLI) | payer MEDICARE, SELFPAY ==
[2021-11-27 10:57] LABS: SARS-CoV-2 RNA PCR Negative
== END ==
PROVIDERS: PCP Family Medicine; Visit Provider Otolaryngology
DX: Z01.812 Encounter for preprocedural laboratory examination (principal); Z20.822 Contact with and (suspected) exposure to COVID-19
CPT/HCPCS: C9803; U0003; U0005

== ENCOUNTER 2021-11-26 08:23 | Outpatient (CLI) | payer MEDICARE, SELFPAY ==
[2021-11-26 08:47] LABS: Basophils Absolute Auto 0.1 K/mm3 (0.0-0.1); Basophils Percent Auto 0.5 % (0.2-1.2); Eosinophils Absolute Auto 0.3 K/mm3 (0-0.3); Eosinophils Percent Auto 3.2 % (0-4.4); Hematocrit 40.4 % (42.0-52.0); Hemoglobin 13.6 g/dL (14.0-18.0); Immature Granulocyte Absolute 0.05 K/mm3 (0.00-0.031); Immature Granulocyte Percent A 0.5 % (0-0.5); Lymphocytes Absolute Auto 2.03 K/mm3 (0.9-3.2); Lymphocytes Percent Auto 19.5 % (18.3-44.2); Mean Corpuscular HGB Conc 33.7 g/dl (32-36); Mean Corpuscular Hemoglobin 29.7 pg (26-34); Mean Corpuscular Volume 88.2 fl (80-100); Mean Platelet Volume 10.2 fl (7.4-10.4); Monocytes Absolute Auto 0.9 K/mm3 (0.1-0.6); Monocytes Percent Auto 8.5 % (2.6-8.5); Neutrophils Absolute Auto 7.1 K/mm3 (1.3-6.7); Neutrophils Percent Auto 67.8 % (45.5-73.1); Platelet Count Result 356 k/mm3 (150-375); Red Blood Count 4.58 M/mm3 (4.6-6.20); Red Cell Distribution Width 12.8 % (11.5-14.5); White Blood Count 10.4 K/mm3 (4.5-10.0)
[2021-11-26 08:55] LABS: Alanine Aminotransferase 30 U/L (4-50); Albumin Level 4.2 g/dL (3.5-5.1); Alkaline Phosphatase 117 U/L (38-126); Anion Gap 9 mmol/L (8-16); Aspartate Amino Transferase 30 U/L (17-59); Bilirubin,Total 0.4 mg/dL (0.2-1.3); Blood Urea Nitrogen 12 mg/dL (9-20); Calcium 9.6 mg/dL (8.4-10.2); Carbon Dioxide 25 mmol/L (22-30); Chloride 103 mmol/L (98-107); Cholesterol 200 mg/dL (0-200); Estimated Glomerular Filt Rate > 60; Glucose 113 mg/dL (65-110); HDL Direct 27 mg/dL; Potassium 4.3 mmol/L (3.4-5.0); Sodium 137 mmol/L (137-145); Triglycerides 335 mg/dL (<150)
[2021-11-26 09:07] LABS: LDL Cholesterol Direct 116 mg/dL
[2021-11-26 09:25] LABS: Prostate Specific Antigen 0.4 ng/mL (< OR = 4.0)
[2021-11-26 09:34] LABS: Vitamin D 25 Hydroxy 85.6 ng/mL
== END 2021-11-26 08:24 | disposition home or self-care (01) ==
PROVIDERS: PCP Family Medicine; Visit Provider Family Medicine
DX: R73.03 Prediabetes (principal); E55.9 Vitamin D deficiency, unspecified; E78.5 Hyperlipidemia, unspecified; Z12.5 Encounter for screening for malignant neoplasm of prostate; Z00.00 Encounter for general adult medical examination without abnormal findings; I10 Essential (primary) hypertension
CPT/HCPCS: 36415; 80053; 80061; 82306; 83036; 84153; 84443; 85025; G0103

== ENCOUNTER 2021-11-26 09:08 | Outpatient (CLI) | payer MEDICARE, SELFPAY ==
[2021-11-26 09:51] LABS: Anion Gap 12 mmol/L (8-16); Blood Urea Nitrogen 13 mg/dL (9-20); Calcium 9.6 mg/dL (8.4-10.2); Carbon Dioxide 24 mmol/L (22-30); Chloride 102 mmol/L (98-107); Estimated Glomerular Filt Rate > 60; Glucose 112 mg/dL (65-110); Potassium 4.4 mmol/L (3.4-5.0); Sodium 138 mmol/L (137-145)
--- NOTE | 2021-11-26 11:00 | ECG_ITS ---
Measurements Intervals [place] Rate: 90 P: 64 NC: 163 QRS: -24 QRSD: 102 T: 43 QT: 329 QTc: 404 Interpretive Statements SINUS RHYTHM BORDERLINE R WAVE PROGRESSION, ANTERIOR LEADS BASELINE ARTIFACT- I, II, AVR, AVF, V4 BORDERLINE ECG Electronically Signed On 11-26-2021 9:27:56 SOFTWARE DEPL[employer]MENT ENGINEER by Talat Vicente D.O.
== END 2021-11-26 09:09 | disposition home or self-care (01) ==
LOC: ANHSURGERY 09:11
PROVIDERS: Anesthesiology; PCP Family Medicine; Visit Provider Otolaryngology
DX: I10 Essential (primary) hypertension (principal); Z01.818 Encounter for other preprocedural examination; R94.31 Abnormal electrocardiogram [ECG] [EKG]
CPT/HCPCS: 36415; 80048; 93005

== ENCOUNTER 2021-11-29 01:22 | Day surgery (SDC) | payer MEDICARE, SELFPAY ==
[2021-11-23 14:48] VITALS: BMI 33.3
--- NOTE | 2021-11-23 14:53 | SUR.PREOP ---
Report to the Outpatient Waiting Room, entrance under the green pavilion located off [facility], at time _0730____ on date 11/11/21 . OR Time: _929 - A mask is required within the hospital. Preoperative COVID Testing Requirements: No COVID Test needed if: (proof is required; if not received patient will have Rapid Test prior to entry) - Patient has received COVID Vaccine at least 14 days prior to procedure date or - Patient has positive COVID test result within last 90 days of surgery date. COVID Test needed if above criteria is not met covid 11/26/21929 If not COVID vaccinated a COVID test must be conducted within 72 hours of surgery and patient is asked to isolate self from time of testing until procedure. You will go to the [facility] for your COVID testing. The [employer] [facility] is located at the corner of [address] [facility]. You will only be called if COVID results are positive and your surgeon may reschedule your elective surgery date. Patients may have clear liquids (water, carbonated beverages, clear teas, apple juice) until 3 hours prior to surgery with a maximum of 20 ounces. - No food from midnight until time of surgery - Infants may have breast milk until 4 hours before surgery, formula 6 hours prior to surgery. - Children will be allowed to drink immediately following surgery. If applicable, please bring a bottle or sippy cup to assist with drinking. Juice, water, soda, and popsicles are readily available. For infants on formula, please bring formula the day of surgery. Pacifiers are allowed. Take the following medications with a SIP of water the morning of surgery: __amlodipine,metoprolol,venlafexine Medications to discontinue per physician _vitamin supplements Date to take last dose__11/26/21 Please no make-up, nail sinhala, hairspray, perfume, deodorant, or body powder the day of surgery. No jewelry (including any body piercings) or valuables the day of surgery, leave them at home. Please take a shower or bath the night before, or the morning of, surgery with an antibacterial soap. Wear comfortable, loose fitting clothing. Children are encouraged to wear pajamas. - Jewelry must be removed prior to entering the operating room. Rings and piercings that are not removed may be cut off. - The hospital will not accept responsibility for valuables. - Please leave all valuables, including medications, at home the day of surgery. If you are going home after surgery, a licensed pizza driver must drive you home. - NO public transportation without another adult. - We recommend that an adult stay with you for 24 hours following discharge. - We also recommend that you do not drive, make important decision, drink alcoholic beverages, or take any drugs that were not prescribed by your health care provider for at least 24 hours after your discharge time. For Pediatric surgeries, we recommend two adults accompany the child home (only one inside the building at this time). Follow any additional instructions given to you from your surgeon. Telephone instructions given to keanu javier__and asked if any additional questions and then verbalized understanding. Patient advised to call surgeon office or pre surgery nurse liaison [phone] if any additional questions.
--- NOTE | 2021-11-27 07:09 | PM.HPGS ---
History of Present Illness History of Present Illness Consent: Risks, benefits, and alternatives have been discussed and questions answered. Patient agrees to proceed with procedure. Chief complaint: chronic sinusitis Narrative: Edward Atwood is a 55 year old male comes in for septal and sinus surgery Review of Systems Review of Systems: All systems reviewed & are unremarkable except as noted in HPI and below PMFSH Past Medical History Medical History Depression with anxiety DJD (degenerative joint disease) of knee Family history of colon cancer in father GERD without esophagitis Hypertension Left shoulder pain LAURENT (obstructive sleep apnea) Osteoarthritis Prediabetes Rheumatoid arthritis Surgical History Surgical History History of left knee replacement 12/2020 History of nasal surgery 01/2019 - Endoscopic anterior and posterior ethmoid, maxillary antrostomy, both sides. Status post total knee replacement (~06/14/20) Right Family History Family History Father Malignant neoplasm of prostate Family history of lung cancer, Onset Age: 74 Patient's father is Mother Patient's mother is , Onset Age: 69 Acute myocardial infarction, Onset Age: 69 Family history of cardiovascular disease, Onset Age: 71 Sibling Patient's brother is Other Family history of arthritis Hypertension Social History Social History Social History: Patient lives at home with his . His PCP is Dr. Jay. He is listed as a FC. Smoking packs per day: 0.75 Smoking cigarettes per day: 15.0 Years smoked: 40 Smoking pack-years: 30.00 Smoking status: Current every day smoker Tobacco type: cigarettes Second hand tobacco smoke exposure: No Additional smoking assessment comments: 1/2 ppd x 40 years cigarettes Alcohol intake: former Drinks per week: 5 Alcohol use details: STATES VERY RARELY - 2-4 DRINKS YEAR Substance use: former Substance use type: marijuana Gender identity (if verbalized by the patient): Male Spiritual care concerns: No Agree to blood products: Yes Meds Home Medications and Allergies Home Medications Medication Instructions Recorded Confirmed Type ibuprofen [Motrin IB] 2,000 mg PO TID PRN 06/05/20 11/23/21 History zinc 50 mg PO QAM 12/27/20 11/23/21 History hydrochlorothiazide 25 mg tablet 25 mg PO DAILY #90 tablet 03/08/21 11/23/21 Rx aspirin 325 mg tablet 325 mg PO DAILY PRN tablet 05/29/21 11/23/21 History cholecalciferol (vitamin D3) 125 125 mcg PO DAILY 05/29/21 11/23/21 History mcg (5,000 unit) capsule omeprazole magnesium 20 mg 20 mg PO DAILY 05/29/21 11/23/21 History tablet,delayed release metoprolol succinate 50 mg 50 mg PO DAILY #90 tablet 09/20/21 11/23/21 Rx tablet,extended release 24 hr amlodipine 10 mg tablet 10 mg PO DAILY #90 tablet 10/26/21 11/23/21 Rx venlafaxine 150 mg tablet,extended 300 mg PO DAILY tablet 11/13/21 11/23/21 History release 24 hr Allergies Allergy/AdvReac Type Severity Reaction Status Date / Time amoxicillin Allergy Severe Headache Verified 11/23/21 14:19 prednisone Allergy Mild Nausea Verified 11/23/21 14:19 STEROIDS AdvReac Intermediate SICK AND Uncoded 11/23/21 14:19 NAUSEA Exam Narrative: chest clear heart without murmurs septum deviated to the right with obstruction polyp on the left side mouth negative extremities negative Assessment and Plan Additional Plan plan septoplasty bilateral maxillary antrostomy and nasal polypectomy
[2021-11-29] VITALS (7 sets, daily range): BP systolic 112–130; BP diastolic 70–94; PULSE 78–103; RESP 16–20; TEMP 36.5–36.6; O2SAT 92–97
--- NOTE | 2021-11-29 06:25 | PM.HPGS ---
History of Present Illness History of Present Illness Consent: Risks, benefits, and alternatives have been discussed and questions answered. Patient agrees to proceed with procedure. Chief complaint: chronic sinusitis Narrative: Edward Atwood is a 55 year old male [facility] Past Medical History Medical History Depression with anxiety DJD (degenerative joint disease) of knee Family history of colon cancer in father GERD without esophagitis Hypertension Left shoulder pain LAURENT (obstructive sleep apnea) Osteoarthritis Prediabetes Rheumatoid arthritis Surgical History Surgical History History of left knee replacement 12/2020 History of nasal surgery 01/2019 - Endoscopic anterior and posterior ethmoid, maxillary antrostomy, both sides. Status post total knee replacement (~06/14/20) Right Family History Family History Father Malignant neoplasm of prostate Family history of lung cancer, Onset Age: 74 Patient's father is Mother Patient's mother is , Onset Age: 69 Acute myocardial infarction, Onset Age: 69 Family history of cardiovascular disease, Onset Age: 71 Sibling Patient's brother is Other Family history of arthritis Hypertension Social History Social History Social History: Patient lives at home with his . His PCP is Dr. Jay. He is listed as a FC. Smoking packs per day: 0.75 Smoking cigarettes per day: 15.0 Years smoked: 40 Smoking pack-years: 30.00 Smoking status: Current every day smoker Tobacco type: cigarettes Second hand tobacco smoke exposure: No Additional smoking assessment comments: 1/2 ppd x 40 years cigarettes Alcohol intake: former Drinks per week: 5 Alcohol use details: STATES VERY RARELY - 2-4 DRINKS YEAR Substance use: former Substance use type: marijuana Living arrangements: with family Gender identity (if verbalized by the patient): Male Spiritual care concerns: No Agree to blood products: Yes Meds Home Medications and Allergies Home Medications Medication Instructions Recorded Confirmed Type ibuprofen [Motrin IB] 2,000 mg PO TID PRN 06/05/20 11/23/21 History zinc 50 mg PO QAM 12/27/20 11/23/21 History hydrochlorothiazide 25 mg tablet 25 mg PO DAILY #90 tablet 03/08/21 11/23/21 Rx aspirin 325 mg tablet 325 mg PO DAILY PRN tablet 05/29/21 11/23/21 History cholecalciferol (vitamin D3) 125 125 mcg PO DAILY 05/29/21 11/23/21 History mcg (5,000 unit) capsule omeprazole magnesium 20 mg 20 mg PO DAILY 05/29/21 11/23/21 History tablet,delayed release metoprolol succinate 50 mg 50 mg PO DAILY #90 tablet 09/20/21 11/23/21 Rx tablet,extended release 24 hr amlodipine 10 mg tablet 10 mg PO DAILY #90 tablet 10/26/21 11/23/21 Rx venlafaxine 150 mg tablet,extended 300 mg PO DAILY tablet 11/13/21 11/23/21 History release 24 hr Allergies Allergy/AdvReac Type Severity Reaction Status Date / Time amoxicillin Allergy Severe Headache Verified 11/23/21 14:19 prednisone Allergy Mild Nausea Verified 11/23/21 14:19 STEROIDS AdvReac Intermediate SICK AND Uncoded 11/23/21 14:19 NAUSEA
[2021-11-29] MEDS: ACETAMINOPHEN 500 MG TABLET 1000 MG PO (07:32)
--- NOTE | 2021-11-29 07:41 | WPDANESEPPF ---
Anes - Initial Pre Proc Eval Procedure: Operation Date: 11/29/21 08:45 Proposed Procedures p Septoplasty, - Deniz Johnson MD s Bilateral Maxillary Antrostomy with Right Polypectomy - Deniz Johnson MD Date/Time: 11/29/21 07:41 Surgeon: Deniz Johnson MD Pre Op Diagnosis: chronic sinusitis Patient Data Age: 55 Gender: M Height: 1.83 m Weight: 104.2 kg Last Vital Signs Temp 36.5 C 11/29/21 06:55 Pulse 103 H 11/29/21 06:55 Resp 16 11/29/21 06:55 BP 127/90 11/29/21 06:55 Pulse Ox 97 11/29/21 06:55 Allergies Allergy/AdvReac Type Severity Reaction Status Date / Time amoxicillin Allergy Severe Headache Verified 11/29/21 07:26 prednisone Allergy Severe Nausea Verified 11/29/21 07:26 STEROIDS AdvReac Severe SICK AND Uncoded 11/29/21 07:26 NAUSEA Home Medications Medication Instructions Recorded Confirmed Type ibuprofen [Motrin IB] 2,000 mg PO TID PRN 06/05/20 11/29/21 History zinc 50 mg PO QAM 12/27/20 11/29/21 History hydrochlorothiazide 25 mg tablet 25 mg PO DAILY #90 tablet 03/08/21 11/29/21 Rx aspirin 325 mg tablet 325 mg PO DAILY PRN tablet 05/29/21 11/29/21 History cholecalciferol (vitamin D3) 125 125 mcg PO DAILY 05/29/21 11/29/21 History mcg (5,000 unit) capsule omeprazole magnesium 20 mg 20 mg PO DAILY 05/29/21 11/29/21 History tablet,delayed release metoprolol succinate 50 mg 50 mg PO DAILY #90 tablet 09/20/21 11/23/21 Rx tablet,extended release 24 hr amlodipine 10 mg tablet 10 mg PO DAILY #90 tablet 10/26/21 11/29/21 Rx venlafaxine 150 mg tablet,extended 300 mg PO DAILY tablet 11/13/21 11/29/21 History release 24 hr Patient hx anesthesia problems: none Family hx anesthesia problems: none Results Review: All pre-operative results and documents have been reviewed as part of the pre-operative evaluation. [facility] Past Medical History Medical History Depression with anxiety DJD (degenerative joint disease) of knee Family history of colon cancer in father GERD without esophagitis Hypertension Left shoulder pain LAURENT (obstructive sleep apnea) Osteoarthritis Prediabetes Rheumatoid arthritis Surgical History Surgical History History of left knee replacement 12/2020 History of nasal surgery 01/2019 - Endoscopic anterior and posterior ethmoid, maxillary antrostomy, both sides. Status post total knee replacement (~06/14/20) Right Family History Family History Father Malignant neoplasm of prostate Family history of lung cancer, Onset Age: 74 Patient's father is Mother Patient's mother is , Onset Age: 69 Acute myocardial infarction, Onset Age: 69 Family history of cardiovascular disease, Onset Age: 71 Sibling Patient's brother is Other Family history of arthritis Hypertension Social History Social History Social History: Patient lives at home with his . His PCP is Dr. Jay. He is listed as a FC. Smoking packs per day: 0.75 Smoking cigarettes per day: 15.0 Years smoked: 40 Smoking pack-years: 30.00 Smoking status: Current every day smoker Tobacco type: cigarettes Second hand tobacco smoke exposure: No Additional smoking assessment comments: 1/2 ppd x 40 years cigarettes Alcohol intake: former Drinks per week: 5 Alcohol use details: STATES VERY RARELY - 2-4 DRINKS YEAR Substance use: former Substance use type: marijuana Living arrangements: with family Gender identity (if verbalized by the patient): Male Spiritual care concerns: No Agree to blood products: Yes Anes - Eval Final PreProcedure Day of Procedure 11/29/21 07:41 Patient weight: obese Heart: regular rate and rhyt
[2021-11-29] MEDS: LACTATED RINGERS 1,000 ML 30 ML IV CONT (07:53)
[2021-11-29] MEDS: fentaNYL CITRATE INJ (*CRX) 100 MCG/2 ML VIAL 50 MCG IV PUSH (07:58)
--- NOTE | 2021-11-29 08:59 | WPDHPUPDATE1 ---
History and Physical Update Update Date/Time: 11/29/21 08:59 History and Physical has been reviewed, including an updated exam of the patient. There are NO changes in the patient's condition. Risks, benefits, and alternatives have been discussed and questions answered. Patient agrees to proceed with procedure.
[2021-11-29] MEDS: COCAINE HCL (*CRX) 4% TOP SOLN 4 ML VIAL 1 APPLIC TOPICAL (09:10)
[2021-11-29] MEDS: LIDO 1%/EPINEPHRINE/PF 1:200,000 30 ML VIAL XX (09:11)
--- NOTE | 2021-11-29 09:35 | W.PM.PROC2 ---
Procedure Note - Detailed Date of Procedure 11/29/21 Pre-op Diagnosis chronic sinusitis Post-op Diagnosis same Procedure Performed Septoplasty and bilateral maxillary antrostomy Surgeon Deniz Johnson MD Description of Procedure Patient was prepped and draped usual fashion anesthesia cocaine impregnated cottonoids were placed in the nose was injected with xylocaine with adrenaline a left hemitransection was made left anterior and posterior tunnels elevated the bony cartilaginous junction the bony deviation was removed strip of septal cartilage removal of maxillary crest middle turbinates were outfractured nasal antral windows were created under each inferior turbinate after removing the bony deviation he was equal in bilateral on both sides incision closed with 4-0 chromic Calderon splints placed into both sides and sutured into position with 2-0 silk patient awakened returned to recovery in good condition
--- NOTE | 2021-11-29 10:22 | SUR.PHASEI ---
RN called prescription for pain medicine into [facility] on [facility].
== END 2021-11-29 11:22 | disposition home or self-care (01) ==
PROVIDERS: PCP Family Medicine; Visit Provider Otolaryngology
PROC: (CPT 30520; principal; 2021-11-29 08:45)
PROC: (CPT 30520; 2021-11-29 08:45)
DX: J32.9 Chronic sinusitis, unspecified (principal); I10 Essential (primary) hypertension; G47.33 Obstructive sleep apnea (adult) (pediatric); R73.03 Prediabetes; M06.9 Rheumatoid arthritis, unspecified; F41.8 Other specified anxiety disorders; K21.9 Gastro-esophageal reflux disease without esophagitis; F17.210 Nicotine dependence, cigarettes, uncomplicated; Z79.82 Long term (current) use of aspirin; E66.9 Obesity, unspecified; Z68.31 Body mass index [BMI] 31.0-31.9, adult
CPT/HCPCS: 30520; 31020; 36415; 80048; 80053; 80061; 82306; 83036; 84153; 84443; 85025; 93005; A9270; C9803; G0103; J0330; J1100; J2250; J2405; J2704; J3010; J7120; U0003; U0005

== ENCOUNTER 2023-01-20 07:57 | Outpatient (CLI) | payer MEDICARE, SELFPAY ==
[2023-01-20 08:50] LABS: Basophils Absolute Auto 0.1 K/mm3 (0.0-0.1); Basophils Percent Auto 0.6 % (0.2-1.2); Eosinophils Absolute Auto 0.5 K/mm3 (0-0.3); Eosinophils Percent Auto 5.4 % (0-4.4); Hemoglobin 13.8 g/dL (14.0-18.0); Immature Granulocyte Absolute 0.04 K/mm3 (0.00-0.031); Immature Granulocyte Percent A 0.4 % (0-0.5); Lymphocytes Absolute Auto 2.12 K/mm3 (0.9-3.2); Lymphocytes Percent Auto 23.6 % (18.3-44.2); Mean Corpuscular HGB Conc 33.7 g/dl (32-36); Mean Corpuscular Hemoglobin 29.1 pg (26-34); Mean Corpuscular Volume 86.5 fl (80-100); Mean Platelet Volume 10.7 fl (7.4-10.4); Monocytes Absolute Auto 0.7 K/mm3 (0.1-0.6); Monocytes Percent Auto 7.6 % (2.6-8.5); Neutrophils Absolute Auto 5.6 K/mm3 (1.3-6.7); Neutrophils Percent Auto 62.4 % (45.5-73.1); Platelet Count Result 350 k/mm3 (150-375); Red Blood Count 4.74 M/mm3 (4.6-6.20); Red Cell Distribution Width 13.4 % (11.5-14.5)
[2023-01-20 09:01] LABS: Alanine Aminotransferase 35 U/L (6-50); Albumin Level 4.5 g/dL (3.5-5.1); Alkaline Phosphatase 101 U/L (38-126); Anion Gap 10 mmol/L (8-16); Aspartate Amino Transferase 36 U/L (17-59); Bilirubin,Total 0.4 mg/dL (0.2-1.3); Blood Urea Nitrogen 16 mg/dL (9-20); Carbon Dioxide 18 mmol/L (22-30); Chloride 108 mmol/L (98-107); Cholesterol 239 mg/dL (0-200); Estimated Glomerular Filt Rate > 60; Glucose 135 mg/dL (65-110); HDL Direct 35 mg/dL; Potassium 4.2 mmol/L (3.4-5.0); Sodium 136 mmol/L (137-145); Triglycerides 226 mg/dL (<150)
[2023-01-20 09:12] LABS: LDL Cholesterol Direct 143 mg/dL
[2023-01-20 09:36] LABS: Hemoglobin A1C 6.2 % (<5.7)
== END 2023-01-20 07:58 | disposition home or self-care (01) ==
PROVIDERS: PCP Family Medicine; Visit Provider Nurse Practitioner
DX: E78.5 Hyperlipidemia, unspecified (principal); I10 Essential (primary) hypertension
CPT/HCPCS: 36415; 80053; 80061; 83036; 85025

== ENCOUNTER 2024-05-17 08:25 | Outpatient (CLI) | payer MEDICARE, SELFPAY ==
[2024-05-17 18:49] LABS: Basophils Percent Auto 0.3 % (0.2-1.2); Eosinophils Percent Auto 0.2 % (0-4.4); Hematocrit 42.4 % (42.0-52.0); Hemoglobin 13.4 g/dL (14.0-18.0); Immature Granulocyte Absolute 0.05 K/mm3 (0.00-0.031); Immature Granulocyte Percent A 0.4 % (0-0.5); Lymphocytes Absolute Auto 2.94 K/mm3 (0.9-3.2); Lymphocytes Percent Auto 23.9 % (18.3-44.2); Mean Corpuscular HGB Conc 31.6 g/dl (32-36); Mean Corpuscular Hemoglobin 27.6 pg (26-34); Mean Corpuscular Volume 87.4 fl (80-100); Monocytes Absolute Auto 1.2 K/mm3 (0.1-0.6); Monocytes Percent Auto 9.6 % (2.6-8.5); Neutrophils Percent Auto 65.6 % (45.5-73.1); Platelet Count Result 399 k/mm3 (150-375); Red Blood Count 4.85 M/mm3 (4.6-6.20); Red Cell Distribution Width 14.7 % (11.5-14.5); White Blood Count 12.3 K/mm3 (4.5-10.0)
[2024-05-17 19:33] LABS: Alanine Aminotransferase 24 U/L (6-50); Albumin Level 4.2 g/dL (3.5-5.1); Alkaline Phosphatase 69 U/L (38-126); Anion Gap 15 mmol/L (4-12); Aspartate Amino Transferase 22 U/L (17-59); Bilirubin,Total 0.4 mg/dL (0.2-1.3); Blood Urea Nitrogen 25 mg/dL (9-20); Calcium 8.9 mg/dL (8.4-10.2); Carbon Dioxide 20 mmol/L (22-30); Chloride 103 mmol/L (98-107); Cholesterol 211 mg/dL (0-200); Estimated Glomerular Filt Rate > 60; Glucose 71 mg/dL (65-110); HDL Direct 66 mg/dL; Potassium 4.1 mmol/L (3.4-5.0); Sodium 138 mmol/L (137-145); Triglycerides 144 mg/dL (<150)
[2024-05-17 19:49] LABS: LDL Cholesterol Direct 114 mg/dL
[2024-05-17 20:04] LABS: Prostate Specific Antigen 0.5 ng/mL (< OR = 4.0)
[2024-05-19 11:39] LABS: Hemoglobin A1C 6.3 % (<5.7)
== END 2024-05-17 08:26 | disposition home or self-care (01) ==
LOC: ANHGOSHLAB 08:27
PROVIDERS: PCP Family Medicine; Visit Provider Student in an Organized Health Care Education/Training Program
DX: M06.9 Rheumatoid arthritis, unspecified (principal); E78.2 Mixed hyperlipidemia; I10 Essential (primary) hypertension; R73.03 Prediabetes; Z12.5 Encounter for screening for malignant neoplasm of prostate
CPT/HCPCS: 36415; 80053; 80061; 83036; 84153; 85025; G0103

== ENCOUNTER 2025-03-30 09:15 | Outpatient (CLI) | payer MEDICARE, SELFPAY ==
--- NOTE | ~2025-03-30 | CT_ITS ---
EXAMINATION: CT sinus wo con DATE: 03/30/2025 09:37 INDICATION: Chronic maxillary sinusitis TECHNIQUE: Computed tomography (CT) of the paranasal sinuses was performed without intravenous contra st. The dose-length product was 400.44 mGy-cm. Automated exposure control and iterative reconstructio n technique were employed. COMPARISON: CT dated 10/18/2021 FINDINGS: There is improved mucosal thickening of the maxillary sinuses compared with 10/18/2021. The re is moderate chronic mucosal thickening of the ethmoid sinuses. Rightward nasal septal deviation. T here is occlusion of the left ostiomeatal unit by soft tissue. Right ostiomeatal unit is patent. Smal l bilateral mastoid effusions. There is mild mucosal thickening of the sphenoid sinuses. IMPRESSION: 1. Moderate chronic sinusitis. Reviewed, dictated and finalized at location B.
== END 2025-03-30 09:16 | disposition home or self-care (01) ==
LOC: GOSHIMG 09:16
PROVIDERS: PCP Otolaryngology; Visit Provider Otolaryngology
DX: J32.0 Chronic maxillary sinusitis (principal); J32.2 Chronic ethmoidal sinusitis; J33.9 Nasal polyp, unspecified
CPT/HCPCS: 70486

== ENCOUNTER 2025-04-12 07:59 | Outpatient (CLI) | payer MEDICARE, SELFPAY ==
--- NOTE | ~2025-04-12 | CT_ITS ---
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 Automated exposure control and iterative reconstruction technique were employed. The dose-sonal gth product was 1168.45 mGy-cm. COMPARISON: None FINDINGS: Neck CT: Orbits are normal. Moderate mucosal thickening in the left maxillary and bilateral ethmoid sinuses. M astoid air cells and middle ear cavities are clear. Submandibular and parotid glands are symmetric. T hyroid gland is unremarkable. There are scattered normal-sized lymph nodes in the neck, no pathologic ally enlarged lymphadenopathy. No masses identified. Atherosclerotic calcification without 0% stenos is by NASCET criteria at the bilateral carotid bulbs. There is slight asymmetry to the vocal cords wi th the right vocal cord remaining medially deviated relative to the left vocal cord. Airway is otherw ise unremarkable. Mild cervical spondylosis. Chest CT: Minimal biapical emphysema. Calcified left apical nodule consistent with old granulomatous disease. M ild dependent atelectasis in both lungs. No other suspicious pulmonary nodules, pneumonia, pulmonary edema or pleural effusion. Heart size is normal. Atherosclerotic coronary artery calcific location. N o pericardial effusion. Thoracic aorta is normal in caliber with no dissection. No pathologically enl arged thoracic lymphadenopathy. Very small sliding-type hiatal hernia. Visualized upper abdomen is un remarkable. Mild to moderate thoracic spondylosis with chronic appearing mild anterior wedging of a f ew lower thoracic vertebral bodies. IMPRESSION: 1. Slight asymmetry to the vocal cords with the right vocal cord remaining more medial than the left. No pathologically enlarged lymphadenopathy, masses or other abnormal lesions identified along the co urse of the laryngeal nerves. 2. Minimal emphysema. No acute cardiopulmonary disease. 3. Very small sliding-type hiatal hernia. Reviewed, dictated and finalized at location A. IMPRESSION: 1. Slight asymmetry to the vocal cords with the right vocal cord remaining more medial than the left. No pathologically enlarged lymphadenopathy, masses or ot her abnormal lesions identified along the course of the laryngeal nerves. 2. Minimal emphysema. No acute cardiopulmonary disease. 3. Very small sliding-type hiatal hernia.
--- OUTSIDE RECORDS SUMMARY | 2025-04-12 08:04 | XMS_ITS | Encounter Summary ---
Author Organization [facility] Address [address] [place] [address] Care Team Providers Care Optics Technical Officer Name Role Phone Margie Rodríguez MD Primary Care Provider Kelly ramsay Encounter Details Date Type Department Care Team (Late st Contact Info) Description 02/26/2021 Telephone [id number] [place] [address] Lauren Linn MD No info available Social History Tobacco Use Types Packs/Day Years Used Date Smoking Tobacco: Some Days Cigarettes 1 30 Smokeless Tobacco: Former Chew Quit: 11/22/2014 Comments:quit Dec 2019 Alcohol Use Standard Drinks/Week Comments Yes 1 (1 standard drink = 0.6 oz pur e alcohol) OCCASIOANLLY Sex and Gender Information Value Date Recorded Sex Assigned at Male 10/24/2022 12:58 PM ARCH SUPPORT TECHNICIAN Legal Sex Male 5:13 PM ARCH SUPPORT TECHNICIAN Gender Identity Male 10/24/2022 12:58 PM ARCH SUPPORT TECHNICIAN Sexual Orientation Straight 10/24/2022 12 :58 PM ARCH SUPPORT TECHNICIAN documented as of this encounter Patient Instructions * Patient Instructions* Rachael Abdullahi - 02/26/2021 3:44 PM CDT Patient called and needs a referral to see a pschiatrist at [facility]. Can Dr.Lena linn put in a referral to PSYCH? Any questions please call patient. Thank you documented in this encounter Miscellaneous Notes * Telephone Encounter - Jaci Andino RN - 02/27/2021 8:07 AM CDT Per MD pt should obtain this referral from PCP. Attempted to contact pt and inform him, no answer, LVM. documented in this encounter Plan of Treatment Upcoming Encounters Date Type Department Care Team (Late st Contact Info) Description 04/19/2025 9:30 AM CDT [facility] [address] [place] [phone] Dominique Olguin MD [address] [place] [address] [place] [phone] 04/28/2025 8:30 AM CDT [facility] [address] [place] [address] 03/02/2026 9:30 AM CDT Office Visit [facility] - Ophthalmology [address] [place] [address], [place] [phone] Richar Julio, [address] [place] [phone] documented as of this encounter Visit Diagnoses Not on filedocumented in this encounter Care Teams Optics Technical Officer Relationship Specialty Start Date End Date Margie Rodríguez MD PCP - General 06/06/20 documented as of this encounter
--- OUTSIDE RECORDS SUMMARY | 2025-04-12 08:04 | XMS_ITS | Encounter Summary ---
Author Organization [facility] Address [address] [place] [address] Care Team Providers Care Secretarial Stenographer Name Role Phone Margie Rodríguez MD Primary Care Provider Kelly ramsay Encounter Details Date Type Department Care Team (Late st Contact Info) Description 04/08/2025 Orders Only [facility] - Rheumatology [address] [place] [address], [place] [address] Lisette Patton MD [address] [place] [address] [place] [address] Seropositive rheumatoid arthritis (HCC); Encounter for long-term (current) use of high-risk medication; Encounter for therapeutic drug monitoring; Screening-pulmonary TB Social History Tobacco Use Types Packs/Day Years Used Date Smoking Tobacco: Former Cigarettes 1 30 0 12/1989 - 12/2019 Passive Smoke Exposure: Past Smokeless Tobacco: Former Chew Quit: 11/22/2014 Comments:quit Dec 2019 Alcohol Use Standard Drinks/Week Comments Yes 1 (1 standard drink = 0.6 oz pur e alcohol) OCCASIOANLLY AUDIT-C Answer Date Recorded Q1: How often do you have a drink containing alc ohol? Monthly or less 02/13/2023 Q2: How many drinks containi ng alcohol do you have on a typical day when you are drinking? 1 or 2 02/13/2023 Q3: How often do you have si x or more drinks on one occasion? Never 02/13/2023 Overall Financial Resource Strain (CARDIA) Answe r Date Recorded How hard is it for you to pa y for the very basics like food, housing, medical care, and heating? Not very hard 02/13/2023 PHQ-2 Answer Date Recorded Patient Health Questionnaire-2 Score 0 09/21/2024 [facility] - Occupational Stress Questionnaire Answer Date Recorded Do you feel stress - tense, restless, nervous, or anxious, or unable to sleep at night because your mind is troubled all the time - these days? Not at all 02/13/2023 Hunger Vital Sign Answer Date Recorded Within the past 12 months, y ou worried that your food would run out before you got the money to buy more. Never true 02/14/20 23 Within the past 12 months, t he food you bought just didn't last and you didn't have money to get more. Never true 02/13/2023 PRAPARE - Transportation Answer Date Re corded In the past 12 months, has l ack of transportation kept you from medical appointments or from getting medications? No 04/2023 In the past 12 months, has l ack of transportation kept you from meetings, work, or from getting things needed for daily living? No 02/13/2023 Housing Stability Vital Sign Answer Ariel e Recorded In the last 12 months, was t here a time when you were not able to pay the mortgage or rent on time? No 02/13/2023 In the last 12 months, how many places have you lived? 1 02/13/2023 In the last 12 months, was t here a time when you did not have a steady place to sleep or slept in a penitentiary (including now)? No 02/13/2023 Education Answer Date Recorded What is the highest level of school you have completed or the highest degree you have received? High school graduate 02/13/2023 Sex and Gender Information Value Date Recorded Sex Assigned at Male 10/24/2022 12:58 PM DIET AIDE Legal Sex Male 5:13 PM DIET AIDE Gender Identity Male 10/24/2022 12:58 PM DIET AIDE Sexual Orientation Straight 10/24/2022 12 :58 PM DIET AIDE Occupation Industry Job Start Date Job End Date RETIRED Not on file Not on file Not on file documented as of this encounter Plan of Treatment Upcoming Encounters Date Type Department Care Team (Late st Contact Info) Description 04/19/2025 9:30 AM CDT Office Visit [facility] - Rheumatology [address] [facility], [place] [phone] Dominique Olguin MD [address] [place] [address] [place] [phone] 04/28/2025 8:30 AM CDT Procedure visit [facility] - Infusion [address] [place] [phone] 03/02/2026 9:30 AM CDT Office Visit [facility] - Ophthalmology [address] [facility], [place] [phone] Richar Julio OD [address] [place] [phone] documented as of this encounter Visit Diagnoses Diagnosis Seropositive rheumatoid arthritis (HCC) Rheumatoid arthritis Encounter for long-term (current) use of high-risk medication Encounter for long-term (current) use of other medications Encounter for therapeutic drug monitoring Screening-pulmonary TB Screening examination for pulmonary tuberculosis documented in this encounter Care Teams Secretarial Stenographer Relationship Specialty Start Date End Date Margie Rodríguez MD PCP - General 06/06/20 documented as of this encounter
--- OUTSIDE RECORDS SUMMARY | 2025-04-12 08:04 | XMS_ITS | Clinical Summary ---
Author Organization [facility] [employer] Address [address] [place] [address] Care Team Providers Care Vinegar Maker Name Role Phone Margie Rodríguez MD Primary Care Provider Unavaila ble Source Comments [facility] [employer],non-owned Affiliates and Associated Physician Practices is amultiple site organization consisting of ambulatory clinics and hospital sitesin [place], [place], [place] and [place]. This disclosure is being madepursuant to the Care Everywhere program and may not contain all information available regarding this patient. Last updated 18.[facility] [employer] Allergies Active Allergy Reactions Criticality Noted Date Comments Duloxetine Psychiatric Medium 04/29/2023 Fluoxetine Psychiatric Medium 04/29/2023 Prednisone Nausea and/or Vomiting Low 02/10/2019 With any steroid. Medications * This document contains information received from the source organization and may not represent a complete record from that organization. * Be aware that medications may not be up to date on this document. Alwaysverify current medications with the patient. omeprazole (PRILOSEC) 10 MG capsule Take 1 (one) capsule by mouth 2 times daily Active Vitamin D, Cholecalcifero l, 1000 UNITSIndicatio ns:TAKES 2 TABS AT THE SAME TIME Take 2 (two) tablets by mouth once daily Reasons: TAKES 2 TABS AT THE SAME TIME Active metoprolol succinate XL 24hr (TOPROL XL) 50 MG tablet Take 1 (one) tablet by mouth once daily 1 Active amLODIPine (NORVASC) 10 MG tablet Take 1 (one) tablet by mouth once daily 1 Active hydroCHLOROthi azide (Hydrodiuril) 25 MG tablet Take 1 (one) tablet by mouth once daily 2 Active folic acid (Folvite) 1 MG tabletIndicati ons:Seropositi ve rheumatoid arthritis (HCC) Take 1 (one) tablet by mouth once daily 90 tablet 4 3 Active venlafaxine XR 24hr (Effexor XR) 150 MG capsuleIndicat ions:Major Depressive Disorder Take 2 (two) capsules by mouth once daily Reasons: Major Depressive Disorder 180 capsule 2 4 Active clindamycin (Cleocin T) 1 % solution 4 Active metFORMIN ER 24hr (Glucophage XR) 500 MG tablet TAKE 1 TABLET BY MOUTH ONCE DAILY AFTER SUPPER 4 Active hydroxychloroq uine (Plaquenil) 200 MG tabletIndicati ons:Seropositi ve rheumatoid arthritis (HCC) Take 1 (one) tablet by mouth 2 times daily 180 tablet 4 4 Active doxycycline hyclate 100 MG tablet Take 1 (one) tablet by mouth once daily 4 Active leflunomide (Arava) 20 MG tabletIndicati ons:Seropositi ve rheumatoid arthritis (HCC) Take 1 (one) tablet by mouth once daily 90 tablet 1 5 06/19/20 25 Active predniSONE (Deltasone) 5 MG tabletIndicati ons:Rheumatoid Arthritis Take 2 (two) tablets by mouth once daily for 90 days Reasons: Rheumatoid Arthritis 180 tablet 4 03/17/20 25 Discontinu ed(List Clean-Up) predniSONE (Deltasone) 2.5 MG tabletIndicati ons:Seropositi ve rheumatoid arthritis (HCC) Take 3 (three) tablets by mouth once daily for 14 days, THEN 2 (two) tablets once daily for 14 days, THEN 1 (one) tablet once daily for 14 days. 85 tablet 4 03/17/20 25 Discontinu ed(List Clean-Up) Active Problems Problem Noted Date Diagnosed Date Moderate episode of recurrent major depressive d isorder 12/24/2022 Undifferentiated inflammatory polyarthritis 08/11 Rheumatoid factor positive 08/30/2019 Rheumatoid arthritis involving left knee 019 Body mass index (bmi) 31.0-31.9, adult 9 Hypertensive disorder 01/16/2018 Obstructive sleep apnea syndrome 01/16/2018 Tobacco dependence syndrome 01/16/2018 Rheumatoid arthritis, seropositive, multiple sit es 02/06/2017 Seropositive rheumatoid arthritis 12/14/2015 Encounters Date Type Department Care Team Description 04/08/2025 Orders Only [facility] - Rheumatology [address] [place] [phone] Lisette Patton MD Seropositive rheumatoid arthritis (HCC); Encounter for long-term (current) use of high-risk medication; Encounter for therapeutic drug monitoring; Screening-pulmonary TB 03/17/2025 8:45 AM CDT Procedure visit [facility] - Infusion [address] [place] [address] Rheumatoid arthritis, seropositive, multiple sites (HCC) 03/17/2025 Orders Only [facility] - Rheumatology [address] [place] [phone] Lisette Patton MD 03/17/2025 Travel 03/02/2025 9:30 AM CDT Office Visit [facility] - Ophthalmology [address] [place] [phone] Richar Julio, OD Encounter for long-term (current) use of high-risk medication (Primary Dx); Seropositive rheumatoid arthritis (HCC); Combined forms of age-related cataract of both eyes; Myopia of both eyes 03/02/2025 9:00 AM CDT Clinical Support [facility] - Ophthalmology [address] [place] [phone] Richar Julio, OD Encounter for long-term (current) use of high-risk medication (Primary Dx) 03/02/2025 8:55 AM CDT Clinical Support [facility] - Ophthalmology [address] [place] [phone] Richar Julio, OD Encounter for long-term (current) use of high-risk medication (Primary Dx) 03/02/2025 Travel 02/11/2025 Orders Only [facility] - Rheumatology [address] [place] [address] [place] [address] Lisette Patton MD Seropositive rheumatoid arthritis (HCC); Encounter for long-term (current) use of high-risk medication; Encounter for therapeutic drug monitoring; Screening-pulmonary TB 02/03/2025 8:45 AM CDT Procedure visit [facility] - Infusion [address] [place] [place] [address] Rheumatoid arthritis, seropositive, multiple sites 02/03/2025 Orders Only [facility] - Rheumatology [address] [facility] [place] [address] Lisette Patton MD 02/03/2025 Travel from Last 3 Months Immunizations Immunization Administration Dates Next Due INFLUENZA VACCINE, TRIV. (AF LURIA, FLUZONE TRIVALENT; 6MO+) (IIV3) 11/25/2013 FLU VACCINE QUAD IIV4 PF ID 09/14/2018 INFLUENZA VACCINE 09/03/2017 INFLUENZA VACCINE, QUADR. (F LUZONE; FLULAVAL; FLUARIX; AFLURIA QUADRIVALENT; 6MO+), 0.5 ML (IIV4) 07/24/2022,07/25/2020,09/09/2019 Influenza Intradermal 09/03/2017 Family History Medical History Relation Name Comments Cancer - Prostate Father 76 Arthritis - Rheumatoid Mother 69 Heart Disease Mother 69 Relation Name Status Comments Brother 1 60 Alive Brother 2 58 Alive Brother 3 46 Alive Brother 4 44 Alive Brother 5 45 SMALL INTESTINE CORRODED Daughter 1 26 Alive Daughter 2 24(TWIN) Alive Daughter 3 24(TWIN) Alive Father 76 Maternal Grandfather Maternal Grandmother Mother 69 Paternal Grandfather Paternal Grandmother Sister 1 62 Alive Sister 2 57 Alive Sister 3 54 Alive Sister 4 53 Alive Sister 5 49 Alive Son 28 Alive Social History Tobacco Use Types Packs/Day Years Used Date Smoking Tobacco: Former Cigarettes 1 30 0 12/1989 - 12/2019 Passive Smoke Exposure: Past Smokeless Tobacco: Former Chew Quit: 11/22/2014 Tobacco Cessation:Counseling Given: No Comments:quit Dec 2019 Alcohol Use Standard Drinks/Week [...] Recorded Patient Health Questionnaire-2 Score 0 09/21/2024 [facility] Occup[facility] ional [facility] - Occupational Stress [...] place to sleep or slept in a group home (including now)? No 02/13/2023 Education Answer Date Recorded What is the highest level of school you have completed or the highest degree you have received? High school graduate 02/13/2023 Sex and Gender Information Value Date Recorded Sex Assigned at Male 10/24/2022 12:58 PM PILLOWCASE CLEANER Legal Sex Male 5:13 PM PILLOWCASE CLEANER Gender Identity Male 10/24/2022 12:58 PM PILLOWCASE CLEANER Sexual Orientation Straight 10/24/2022 12 :58 PM PILLOWCASE CLEANER Occupation Industry Job Start Date Job End Date RETIRED Not on file Not on file Not on file Last Filed Vital Signs Vital Sign Reading Time Taken Comments Blood Pressure 130/86 03/17/2025 8:13 AM CDT Pulse 93 03/17/2025 8:13 AM CDT Temperature 36.1 C (97 F) 03/17/2025 8:13 AM CDT Respiratory Rate 12 03/17/2025 8:13 AM CDT Oxygen Saturation 96% 03/17/2025 8:13 AM CDT Inhaled Oxygen Concentration - - Weight 101.7 kg (224 lb 3.2 oz) 03/17/2025 8:13 AM CDT Height 182.9 cm (6') 03/17/2025 8:13 AM CDT Body Mass Index 30.41 03/17/2025 8:13 AM CDT Plan of Treatment Upcoming Encounters Date Type Department Care Team (Late st Contact Info) Description 04/19/2025 9:30 AM CDT Office Visit [facility] - Rheumatology [address] [place] [phone] Dominique Olguin MD [address] [place] [address] [place] [phone] 04/28/2025 8:30 AM CDT Procedure visit [facility] Infusion [address] [place] [address] 03/02/2026 9:30 AM CDT Office Visit [facility] - Ophthalmology [address] [facility], [place] [phone] Richar Julio OD [facility] [place] [address] Health Maintenance Due Date Last Done Comments COLOGUARD (AGES 45-75) - COLON CA SCREENING 1965 COLON MONITORING 1965 COLONOSCOPY - COLON CA SCREENING 1965 CT COLONOGRAPHY - COLON CA SCREENING 1965 Colorectal Cancer Screening 1965 FIT - COLON CA SCREENING 1965 FLEX SIG - COLON CA SCREENING 1965 LIPID TESTING 1965 COVID-19 VACCINE (#1) 1970 HIV SCREENING 1980 DTAP/TDAP/TD VACCINES (1 - Tdap) 1984 HEPATITIS B VACCINE (1 of 3 - 19+ 3-dose series) 1984 PNEUMOCOCCAL VACCINE 50+ (1 of 2 - PCV) 1984 ZOSTER VACCINE (1 of 2) 1984 LUNG CANCER SCREENING 2015 DEPRESSION SCREENING 11/10/2024 01/06/2024, 09/09/2023, 09/09/2023, Additional history exists MEDICARE AWV CALENDAR YEAR 2024 INFLUENZA VACCINE (Season Ended) 2025 07/24/2022, 07/25/2020, 09/09/2019, Additional history exists SCREENING FOR DIABETES 03/17/2028 , 02/03/2025, 12/23/2024, Additional history exists HEPATITIS C SCREENING Completed 02/06/2024 , 10/04/2022, 11/22/2015 HIB VACCINE Aged Out No longer eligi ble based on patient's age to complete this topic HPV VACCINE Aged Out No longer eligi ble based on patient's age to complete this topic MENINGOCOCCAL (Group B) VACCINE SHARED DECISION-MAKING Aged Out No longer eligible based on patient's age to complete this topic MENINGOCOCCAL GROUPS A/C/Y/W VACCINE Aged Out No longer eligible based on patient's age to complete this topic Procedures Procedure Name Priority Date/Time Associated Diagnosis Comments C-REACTIVE PROTEIN 03/17/2025 9: 17 AM CDT URINALYSIS W/MICROSCOPIC REFLEX TO CULTURE 03/17/2025 9:17 AM CDT CBC W AUTO DIFFERENTIAL 03/17/2025 9:17 AM CDT ERYTHROCYTE SEDIMENTATION RATE 03/17/2025 9:17 AM CDT COMPREHENSIVE METABOLIC PANEL 03/17/2025 9:17 AM CDT CULTURE URINE REFLEXED I 03/17/2025 9:17 AM CDT RETINAL ANALYSIS OCT Routine 03/02/2025 8:51 AM CDT Encounter for long-term (current) use of high-risk medication VILLASEÑOR AUTO VISUAL FIELD EXTENDED Routine 03/02/2025 8:51 AM CDT Encounter for long-term (current) use of high-risk medication QUANTIFERON-TB GOLD PLUS 1-TUBE 02/03/2025 8:55 AM CDT C-REACTIVE PROTEIN 02/03/2025 8: 55 AM CDT CBC W AUTO DIFFERENTIAL 02/03/2025 8:55 AM CDT URINALYSIS W/MICROSCOPIC REFLEX TO CULTURE 02/03/2025 8:55 AM CDT ERYTHROCYTE SEDIMENTATION RATE 02/03/2025 8:55 AM CDT COMPREHENSIVE METABOLIC PANEL 02/03/2025 8:55 AM CDT CULTURE URINE REFLEXED III 02/03/2025 8:55 AM CDT HEPATITIS C AB W/RFLX TO HCV RNA QN PCR 02/06/2024 11:42 AM CDT from Last 3 Months or Most Recently Relevant to Health Maintenance Results * CULTURE URINE REFLEXED I (03/17/2025 9:17 AM CDT) Reflexive Urine Culture See Below [facility] Comment: NO CULTURE INDICATED Test Performed at: [facility] [address] [address] [place] [address] DAVE YU MD 03/17/2025 9:17 AM CDT 03/17/2025 9:18 AM CDT Lisette Patton MD LAB - MICROBIOLOGY ORD ERABLES Final Result Performing Organization Address [facility] Co de Phone Number [facility] [address] [place] [address] * (ABNORMAL) URINALYSIS W/MICROSCOPIC REFLEX TO CULTURE (03/17/2025 9:17 AM CDT) Only the most recent of2 resultswithin the time period is included. Color UA YELLOW YELLOW [facility] Appearance CLEAR CLEAR [facility] Specific [place] UA 1.009 1.001 - 1.035 [facility] pH UA 6.0 5.0 - 8.0 [facility] Glucose UA NEGATIVE NEGATIVE [facility] Bilirubin UA NEGATIVE NEGATIVE [facility] Ketone UA NEGATIVE NEGATIVE [facility] Blood UA NEGATIVE NEGATIVE [facility] Protein UA TRACE(A) NEGATIVE [facility] Nitrite NEGATIVE NEGATIVE [facility] Leukocyte Esterase NEGATIVE NEGATIVE [facility] WBC UA NONE SEEN < OR = 5 /HPF [facility] RBC UA NONE SEEN < OR = 2 /HPF [facility] Epithelial Cell UA NONE SEEN < OR = 5 /HPF [facility] Transitional Epithelial Cells [facility] Renal Epithelial Cells [facility] Bacteria UA NONE SEEN NONE SEEN /HPF [facility] Calcium Oxalate Crystals [facility] Triple Phosphate Crystals [facility] Uric Acid Crystals [facility] Amorphous UA [facility] Crystals UA [facility] Hyaline Casts NONE SEEN NONE SEEN /LPF [facility] Granular Casts [facility] Casts UA [facility] Yeast [facility] Comments [facility] Note See Below [facility] Comment: This urine was analyzed for the presence of WBC, RBC, bacteria, casts, and other formed elements. Only those elements seen were reported. Test Performed at: [facility] [address] [address] DAVE YU MD 03/17/2025 9:17 AM CDT 03/17/2025 9:18 AM CDT Lisette Patton MD LAB - URINALYSIS ORDER SAKSHI Final Result Performing Organization Address [facility] Co de Phone Number [facility] [address] [place] [address] * (ABNORMAL) C-REACTIVE PROTEIN (03/17/2025 9:17 AM CDT) Only the most recent of2 resultswithin the time period is included. [facility] C-Reactive Protein 9.9(H) <8.0 mg/L [facility] Comment: Test Performed at: [facility] [address] DAVE YU MD 03/17/2025 9:17 AM CDT 03/17/2025 9:18 AM CDT Lisette Patton MD LAB - CHEMISTRY ORDERA BLES Final Result Performing Organization Address [facility] de Phone Number [facility] [id number] [place] [address] * (ABNORMAL) ERYTHROCYTE SEDIMENTATION RATE (03/17/2025 9:17 AM CDT) Only the most recent of2 resultswithin the time period is included. [facility] Erythrocyte Sedimentation Rate Westergren 31(H) < OR = 20 mm/h [facility] Comment: Test Performed at: [facility] [address] [address] DAVE YU MD 03/17/2025 9:17 AM CDT 03/17/2025 9:18 AM CDT Lisette Ptaton MD LAB - HEMATOLOGY ORDER SAKSHI Final Result Performing Organization Address [facility] de Phone Number [facility] [id number] [place] [address] * (ABNORMAL) CBC WITH DIFFERENTIAL (03/17/2025 9:17 AM CDT) Only the most recent of2 resultswithin the time period is included. [facility] White Blood Cell Count 7.0 3.8 - 10.8 Thousand/ uL [facility] RBC 4.97 4.20 - 5.80 Million/u L [facility] Hemoglobin 14.2 13.2 - 17.1 g/dL [facility] Hematocrit 45.3 38.5 - 50.0 % [facility] MCV 91.1 80.0 - 100.0 fL [facility] MCH 28.6 27.0 - 33.0 pg [facility] MCHC 31.3(L) 32.0 - 36.0 g/dL [facility] Comment: For adults, a slight decrease in the calculated MCHC value (in the range of 30 to 32 g/dL) is most likely not clinically significant; however, it should be interpreted with caution in correlation with other red cell parameters and the patient's clinical condition. RDW 13.3 11.0 - 15.0 % [facility] Platelet Count 271 140 - 400 Thousand/ uL [facility] MPV 13.0(H) 7.5 - 12.5 fL [facility] Neutrophil Absolute 3668 1500 - 7800 cells/uL [facility] Absolute Bands [facility] Metamyelocytes Absolute [facility] Myelocytes Absolute [facility] Absolute Prolymphocytes [facility] Lymphocytes Absolute 1631 850 - 3900 cells/uL [facility] Absolute Monocytes 959(H) 200 - 950 cells/uL [facility] Eosinophils Absolute 658(H) 15 - 500 cells/uL [facility] Basophils Absolute 84 0 - 200 cells/uL [facility] Absolute Blasts [facility] nRBC Absolute [facility] Granulocytes % 52.4 % [facility] Band Neutrophil [facility] Metamyelocytes [facility] Myelocytes [facility] Promyelocytes [facility] Lymphocytes % 23.3 % [facility] Lymphocyte Reactive [facility] Monocytes % 13.7 % [facility] Eosinophils % 9.4 % [facility] Basophils % 1.2 % [facility] Comment: Test Performed at: [facility] [address] DAVE YU MD Blasts [facility] nRBC [facility] Comments [facility] Comment: Test Performed at: [facility] [address] DAVE YU MD 03/17/2025 9:17 AM CDT 03/17/2025 9:18 AM CDT Lisette Patton MD LAB - HEMATOLOGY ORDER SAKSHI Final Result [facility] [address] [place] [address] * (ABNORMAL) COMPREHENSIVE METABOLIC PANEL (03/17/2025 9:17 AM CDT) Only the most recent of2 resultswithin the time period is included. Glucose 101(H) 65 - 99 mg/dL [facility] Comment: Fasting reference interval For someone without known diabetes, a glucose value between 100 and 125 mg/dL is consistent with prediabetes and should be confirmed with a follow-up test. BUN 13 7 - 25 mg/dL [facility] Creatinine 0.96 0.70 - 1.30 mg/dL [facility] eGFR by Cystatin C 91 > OR = 60 mL/min/1. 73m2 [facility] BUN/Creatinine Ratio SEE NOTE: 6 - 22 (calc) [facility] Comment: Not Reported: BUN and Creatinine are within reference range. Sodium 137 135 - 146 mmol/L [facility] Potassium 4.5 3.5 - 5.3 mmol/L [facility] Chloride 106 98 - 110 mmol/L [facility] CO2 21 20 - 32 mmol/L [facility] Calcium 9.0 8.6 - 10.3 mg/dL [facility] Protein Total 7.7 6.1 - 8.1 g/dL [facility] Albumin 3.8 3.6 - 5.1 g/dL [facility] Globulin Total 3.9(H) 1.9 - 3.7 g/dL (calc) [facility] Albumin/Globulin Ratio 1.0 1.0 - 2.5 (calc) [facility] Bilirubin Total 0.5 0.2 - 1.2 mg/dL [facility] Alkaline Phosphatase 100 35 - 144 U/L [facility] AST 24 10 - 35 U/L [facility] ALT 17 9 - 46 U/L [facility] Comment: Test Performed at: [facility] [address] [place] [address] DAVE YU MD 03/17/2025 9:17 AM CDT 03/17/2025 9:18 AM CDT us Lisette Patton MD LAB - CHEMISTRY ORDERA BLES Final Result [facility] [address] [place] [address] * RETINAL ANALYSIS OCT (03/02/2025 8:51 AM CDT) Anatomical Region Laterality Modality Head External-Camera Photography Narrative 03/02/2025 9:22 AM CDT Images from the original result were not included. OD: Good quality, note no signs of interruption to the IS/OS junction line or saucer sign indicative of plaquenil toxicity OS: Good quality, note no signs of interruption to the IS/OS junction line or saucer sign indicative of plaquenil toxicity No changes to initial visit as indicated us Richar Julio OD OPHTHALMOLOGY SCHED ORD W PACS F inal Result * VILLASEÑOR AUTO VISUAL FIELD EXTENDED (03/02/2025 8:51 AM CDT) Anatomical Region Laterality Modality Head External-Camera Photography Narrative 03/02/2025 9:21 AM CDT Images from the original result were not included. OD: overall full with no signs of paracentral/central loss with plaquenil toxicity; reliability good OS: overall full with no signs of paracentral/central loss with plaquenil toxicity; reliability good us Richar Julio OD OPHTHALMOLOGY SCHED ORD W PACS F inal Result * QUANTIFERON-TB GOLD PLUS 1-TUBE (02/03/2025 8:55 AM CDT) [facility] QuantiFERON TB Gold Plus NEGATIVE NEGATIVE [facility] Comment: Negative test result. M. tuberculosis complex infection unlikely. NIL 0.03 IU/mL [facility] MITOGEN MINUS NIL RESULT 7.89 IU/mL [facility] TB1-NIL 0.00 IU/mL [facility] TB2-NIL 0.00 IU/mL [facility] Comment: The Nil tube value reflects the background interferon gamma immune response of the patient's blood sample. This value has been subtracted from the patient's displayed TB and Mitogen results. Lower than expected results with the Mitogen tube prevent false-negative Quantiferon readings by detecting a patient with a potential immune suppressive condition and/or suboptimal pre-analytical specimen handling. The TB1 Antigen tube is coated with the M. tuberculosis-specific antigens designed to elicit responses from TB antigen primed CD4+ helper T-lymphocytes. The TB2 Antigen tube is coated with the M. tuberculosis-specific antigens designed to elicit responses from TB antigen primed CD4+ helper and CD8+ cytotoxic T-lymphocytes. For additional information, please refer to https://education.[employer]Buscat[employer]anch[employer].com/faq/OVT604 (This link is being provided for informational/ educational purposes only.) Test Performed at: [facility] [address] [place] [address] DAVE YU MD 02/03/2025 8:55 AM CDT 02/03/2025 8:58 AM CDT Lisette Patton MD LAB - CHEMISTRY ORDERA BLES Final Result Performing Organization Address [facility] Co de Phone Number [address] [address] * CULTURE URINE REFLEXED III (02/03/2025 8:55 AM CDT) Reflexive Urine Culture See Below [facility] Comment: NO CULTURE INDICATED Test Performed at: [facility] [address] DAVE YU MD 02/03/2025 8:55 AM CDT 02/03/2025 8:58 AM CDT Lisette Patton MD LAB - MICROBIOLOGY ORD ERABLES Final Result Performing Organization Address [facility] [place] [address] * HEPATITIS C AB W/RFLX TO HCV RNA QN PCR (02/06/2024 11:42 AM CDT) Hepatitis C Antibody NON-REACTI VE NON-REACT [facility] Comment: HCV antibody was non-reactive. There is no laboratory evidence of HCV infection. In most cases, no further action is required. However, if recent HCV exposure is suspected, a test for HCV RNA (test code 61159) is suggested. For additional information please refer to http://education.[employer]/faq/UZP25l5 (This link is being provided for informational/ educational purposes only.) Test Performed at: [facility] [address] [place] [address] DAVE YU MD 02/06/2024 11:4 2 AM CDT 02/06/2024 11:47 AM CDT Lisette Patton MD LAB - CHEMISTRY ORDERA BLES Final Result Performing Organization Address [facility] Co de Phone Number [address] [address] from Last 3 Months or Most Recently Relevant to Health Maintenance Insurance [facility] MEDICARE ADV HMO & PPO [employer] MEDICARE ADV HMO & PPO Care Teams Vinegar Maker Relationship Specialty Start Date End Date Margie Rodríguez MD PCP - General 06/06/20
--- OUTSIDE RECORDS SUMMARY | 2025-04-12 08:04 | XMS_ITS | Patient Health Record ---
Author Organization [facility] Address [address] [facility] [address] [place], [place] [address] Care Team Providers Care Statistical Programmer Analyst Name Role Phone Sandy Bhakta Unavailable [phone] ALLERGIES Allergen (clinical drug ingredient) Drug/Non Drug Allergy documented on EMR Reaction Allergy Type Onset Date Status duloxetine Cymbalta suicidal thoughts Drug Allergy Active prednisone prednisone Unknown Drug Allergy Activ e fluoxetine Prozac zombic fed suicidal thoughts Drug Allergy Active REASON FOR REFERRAL No Information MEDICATIONS Medication SIG (Take, Route, Frequency, Duration) Notes Start Date End Date Status prednisone (10 mg) 10 mg 1 tab(s) orally once a day Active predniSONE 10 mg 1 tab(s) orally once a day for 30 day(s) 05/24/2015 Active meloxicam 15 mg 1 tab(s) orally once a day for 30 day(s) 05/24/2015 Active SOCIAL HISTORY Tobacco Use: Social History Observation Description Date Details (start date - stop date) Never Smoker NA - NA Sex Assigned At : Social History Observation Description Sex Assigned At Unknown Tobacco Use: Question Answer Notes Smoking Status nonsmoker PROBLEMS Problem Type ICD Code Onset Dates Problem Status W/U Status Risk SNOMED Code Notes Problem POLYARTHRITIS (716.59) Active confirmed Polyarthritis (513531823) Problem POSITIVE RHEUMATOID FACTOR (795.79) Active confirmed PLAN OF TREATMENT No Information MEDICAL (GENERAL) HISTORY Medical History History ICD Code Ringing in ears swelling of ankles/feet difficulty breathing painful urination weight gain erection difficulties anxiety depression Surgical History Surgery Date(Month/Year) sibacious cyst removed on 2014
[2025-04-12 08:20] LABS: Estimated Glomerular Filt Rate > 60
== END 2025-04-12 08:00 | disposition home or self-care (01) ==
PROVIDERS: PCP Family Medicine; Visit Provider Otolaryngology Otolaryngology/Facial Plastic Surgery
DX: J38.01 Paralysis of vocal cords and larynx, unilateral (principal); K44.9 Diaphragmatic hernia without obstruction or gangrene
CPT/HCPCS: 70491; 71260; Q9967

== ENCOUNTER 2025-05-30 08:22 | Outpatient (CLI) | payer MEDICARE, SELFPAY ==
--- OUTSIDE RECORDS SUMMARY | 2025-05-30 08:28 | XMS_ITS | Clinical Summary ---
Author Organization [facility] Address [address] [place] [address] Care Team Providers Care Administration Vice President Name Role Phone Margie Rodríguez MD Primary Care Provider Unavaila ble Source Comments [facility],non-owned Affiliates and Associated Physician Practices is amultiple site organization consisting of ambulatory clinics and hospital sitesin [place], [place], [place] and [place]. This disclosure is being madepursuant to the Care Everywhere program and may not contain all information available regarding this patient. Last updated 18.[facility] Allergies Active Allergy Reactions Criticality Noted Date [...] mouth 2 times daily Active Vitamin D, Cholecalciferol , 1000 UNITSIndication s:TAKES 2 TABS AT THE SAME TIME Take 2 (two) tablets by mouth once daily Reasons: TAKES 2 TABS AT THE SAME TIME Active metoprolol succinate XL 24hr (TOPROL XL) 50 MG tablet Take 1 (one) tablet by mouth once daily 1 Active amLODIPine (NORVASC) 10 MG tablet Take 1 (one) tablet by mouth once daily 1 Active hydroCHLOROthia zide (Hydrodiuril) 25 MG tablet Take 1 (one) tablet by mouth once daily 2 Active folic acid (Folvite) 1 MG tabletIndicatio ns:Seropositive rheumatoid arthritis (HCC) Take 1 (one) tablet by mouth once daily 90 tablet 4 3 Active venlafaxine XR 24hr (Effexor XR) 150 MG capsuleIndicati ons:Major Depressive Disorder Take 2 (two) capsules by mouth once daily Reasons: Major Depressive Disorder 180 capsule 2 4 Active clindamycin (Cleocin T) 1 % solution 4 Active metFORMIN ER 24hr (Glucophage XR) 500 MG tablet TAKE 1 TABLET BY MOUTH ONCE DAILY AFTER SUPPER 4 Active hydroxychloroqu ine (Plaquenil) 200 MG tabletIndicatio ns:Seropositive rheumatoid arthritis (HCC) Take 1 (one) tablet by mouth 2 times daily 180 tablet 4 4 Active doxycycline hyclate 100 MG tablet Take 1 (one) tablet by mouth once daily 4 Active leflunomide (Arava) 20 MG tabletIndicatio ns:Seropositive rheumatoid arthritis (HCC) Take 1 (one) tablet by mouth once daily 90 tablet 1 5 06/19/20 25 Active predniSONE (Deltasone) 20 MG tablet TAKE 1 TABLET BY MOUTH IN THE MORNING WITH BREAKFAST FOR 10 DAYS AND THEN 1 TABLET EVERY OTHER DAY FOR 8 DAYS THEN STOP 5 Active Active Problems Problem Noted Date Diagnosed Date [...] Encounters Date Type Department Care Team Description 04/28/2025 8:30 AM CDT Procedure visit [facility] - [facility] [address] [place] [address] Rheumatoid arthritis, seropositive, multiple sites (HCC) 04/28/2025 Travel 04/26/2025 Travel 04/19/2025 9:30 AM CDT Office Visit [facility] - Rheumatology [address] [place] [phone] Dominique Olguin MD Seropositive rheumatoid arthritis (HCC) (Primary Dx) 04/19/2025 Travel 04/08/2025 Orders Only [facility]umatology [address] [place] [phone] Lisette Patton MD Seropositive rheumatoid arthritis (HCC); Encounter for long-term (current) use of high-risk medication; Encounter for therapeutic drug monitoring; Screening-pulmonary TB 03/17/2025 8:45 AM CDT Procedure visit [facility] Count includes the [facility] [place] [address] Rheumatoid arthritis, seropositive, multiple sites (HCC) 03/17/2025 Orders Only [facility] Rheumatology [address] [place] [phone] Lisette Patton MD 03/17/2025 Travel 03/02/2025 9:30 AM CDT Office Visit [facility] - Ophthalmology [address] [place] [phone] Richar Julio, OD Encounter for long-term (current) use of high-risk medication (Primary Dx); Seropositive rheumatoid arthritis (HCC); Combined forms of age-related cataract of both eyes; Myopia of both eyes 03/02/2025 9:00 AM CDT Clinical Support [facility] [address] [place] [phone] Richar Julio, OD Encounter for long-term (current) use of high-risk medication (Primary Dx) 03/02/2025 8:55 AM CDT Clinical Support [facility] [address] [place] [phone] Richar Julio, OD Encounter for long-term (current) use of high-risk medication (Primary Dx) 03/02/2025 Travel from Last 3 Months Immunizations Immunization [...] Date Recorded Patient Health Questionnaire-2 Score 0 04/28/2025 [employer] - Occupational Stress [...] place to sleep or slept in a [place] health care facility (including now)? No 02/13/2023 Education Answer Date Recorded What is the highest level of school you have completed or the highest degree you have received? High school graduate 02/13/2023 Sex and Gender Information Value Date Recorded Sex Assigned at Male 10/24/2022 12:58 PM END FRAZER Legal Sex Male 5:13 PM END FRAZER Gender Identity Male 10/24/2022 12:58 PM END FRAZER Sexual Orientation Straight 10/24/2022 12 :58 PM END FRAZER Occupation Industry Job Start Date Job End Date RETIRED Not on file Not on file Not on file Last Filed Vital Signs Vital Sign Reading Time Taken Comments Blood Pressure 122/88 04/28/2025 7:57 AM CDT Pulse 90 04/28/2025 7:57 AM CDT Temperature 36.4 C (97.5 F) 04/28/2025 7:57 AM CDT Respiratory Rate 14 04/28/2025 7:57 AM CDT Oxygen Saturation 96% 04/28/2025 7:57 AM CDT Inhaled Oxygen Concentration - - Weight 102.7 kg (226 lb 8 oz) 04/28/2025 7:57 AM CDT Height 182.9 cm (6') 04/28/2025 7:57 AM CDT Body Mass Index 30.72 04/28/2025 7:57 AM CDT Plan of Treatment Upcoming Encounters Date Type Department Care Team (Late st Contact Info) Description 06/09/2025 8:30 AM CDT Procedure visit [facility] Infusion [address] [place] [phone] 08/24/2025 9:30 AM CDT Office Visit [facility] - Rheumatology [address] [place] [phone] Dominique Olguin MD [address] [place] [address] [place] [phone] 03/02/2026 9:30 AM CDT Office Visit [facility] Ophthalmology [address] [place] [phone] Richar Julio OD [address] [place] [phone] Health Maintenance Due Date Last Done Comments [...] of 2) 1984 LUNG CANCER SCREENING 2015 MEDICARE AWV CALENDAR YEAR 2024 INFLUENZA VACCINE (#1) 2025 2, 07/25/2020, 09/09/2019, Additional history exists SCREENING FOR DIABETES 04/28/2028 5, 03/17/2025, 02/03/2025, Additional history exists HEPATITIS C SCREENING Completed 02/06/2024 , 10/04/2022, 11/22/2015 DEPRESSION SCREENING Completed 04/19/2025, 01/06/2024, 09/09/2023, Additional history exists HIB VACCINE Aged Out No longer eligi [...] Procedure Name Priority Date/Time Associated Diagnosis Comments URINALYSIS W/MICROSCOPIC REFLEX TO CULTURE Routine 04/28/2025 9:08 AM CDT Seropositive rheumatoid arthritis (HCC) Encounter for long-term (current) use of high-risk medication Encounter for therapeutic drug monitoring Screening-pulmonary TB ERYTHROCYTE SEDIMENTATION RATE Routine 04/28/2025 9:08 AM CDT Seropositive rheumatoid arthritis (HCC) Encounter for long-term (current) use of high-risk medication Encounter for therapeutic drug monitoring Screening-pulmonary TB C-REACTIVE PROTEIN Routine 04/28/2025 9: 08 AM CDT Seropositive rheumatoid arthritis (HCC) Encounter for long-term (current) use of high-risk medication Encounter for therapeutic drug monitoring Screening-pulmonary TB COMPREHENSIVE METABOLIC PANEL Routine 04/28/2025 9:08 AM CDT Seropositive rheumatoid arthritis (HCC) Encounter for long-term (current) use of high-risk medication Encounter for therapeutic drug monitoring Screening-pulmonary TB CBC W AUTO DIFFERENTIAL Routine 04/28/2025 9:08 AM CDT Seropositive rheumatoid arthritis (HCC) Encounter for long-term (current) use of high-risk medication Encounter for therapeutic drug monitoring Screening-pulmonary TB CULTURE URINE REFLEXED III 04/28/2025 9:08 AM CDT C-REACTIVE PROTEIN 03/17/2025 9: 17 AM CDT [...] for long-term (current) use of high-risk medication HEPATITIS C AB W/RFLX TO HCV RNA QN PCR 02/06/2024 11:42 AM CDT from Last 3 Months or Most Recently Relevant to Health Maintenance Results * CULTURE URINE REFLEXED III (04/28/2025 9:08 AM CDT) Reflexive Urine Culture See Below [facility] Comment: NO CULTURE INDICATED Test Performed at: [employer] [address] DAVE YU MD 04/28/2025 9:08 AM CDT 04/28/2025 9:09 AM CDT Lisette Patton MD LAB - MICROBIOLOGY ORD ERABLES Final Result Performing Organization Address [facility] Co de Phone Number [address] [address] * (ABNORMAL) URINALYSIS W/MICROSCOPIC REFLEX TO CULTURE (04/28/2025 9:08 AM CDT) Only the most recent of2 resultswithin the time period is included. Color UA YELLOW YELLOW [facility] Appearance CLEAR CLEAR [facility] Specific [place] UA 1.018 1.001 - 1.035 [facility] pH UA 6.0 5.0 - 8.0 [facility] Glucose UA NEGATIVE NEGATIVE [facility] Bilirubin UA NEGATIVE NEGATIVE [facility] Ketone UA NEGATIVE NEGATIVE [facility] Blood UA NEGATIVE NEGATIVE [facility] Protein UA 1+(A) NEGATIVE [facility] Nitrite NEGATIVE NEGATIVE [facility] Leukocyte Esterase NEGATIVE NEGATIVE [facility] WBC UA NONE SEEN < OR = 5 /HPF [facility] RBC UA NONE SEEN < OR = 2 /HPF [facility] Epithelial Cell UA NONE SEEN < OR = 5 /HPF [facility] Bacteria UA NONE SEEN NONE SEEN /HPF [facility] Hyaline Casts NONE SEEN NONE SEEN /LPF [facility] Note See Below [facility] Comment: This urine was analyzed for the presence of WBC, RBC, bacteria, casts, and other formed elements. Only those elements seen were reported. Test Performed at: [employer] [address] DAVE YU MD Urine MID-STREAM URINE SPECIMEN / Unknown 04/28/2025 9:08 AM CDT 04/28/2025 9:09 AM CDT [facility] Yaw Patton MD LAB - URINALYSIS ORDER SAKSHI Final Result Performing Organization Address [facility] Co de Phone Number [address] [address] * C-REACTIVE PROTEIN (04/28/2025 9:08 AM CDT) Only the most recent of2 resultswithin the time period is included. C-Reactive Protein 7.2 <8.0 mg/L [facility] Comment: Test Performed at: [employer] [facility] [address] [place] [id number] DAVE YU MD Blood BLOOD SPECIMEN / Unknown 04/28/2025 9:08 AM CDT 04/28/2025 9:09 AM CDT Lisette Patton MD LAB - CHEMISTRY ORDERA BLES Final Result Performing Organization Address [facility] de Phone Number [facility] [address] [place] [address] * (ABNORMAL) ERYTHROCYTE SEDIMENTATION RATE (04/28/2025 9:08 AM CDT) Only the most recent of2 resultswithin the time period is included. [facility] Erythrocyte Sedimentation Rate Westergren 51(H) < OR = 20 mm/h [facility] Comment: Test Performed at: [employer] [address] [place] [address] DAVE YU MD Blood BLOOD SPECIMEN / Unknown 04/28/2025 9:08 AM CDT 04/28/2025 9:09 AM CDT Lisette Patton MD LAB - HEMATOLOGY ORDER SAKSHI Final Result Performing Organization Address [facility] de Phone Number [facility] [address] [place] [address] * (ABNORMAL) CBC WITH DIFFERENTIAL (04/28/2025 9:08 AM CDT) Only the most recent of2 resultswithin the time period is included. [facility] White Blood Cell Count 6.0 3.8 - 10.8 Thousand/ uL [facility] RBC 4.90 4.20 - 5.80 Million/u L [facility] Hemoglobin 13.6 13.2 - 17.1 g/dL [facility] Hematocrit 44.0 38.5 - 50.0 % [facility] MCV 89.8 80.0 - 100.0 fL [facility] MCH 27.8 27.0 - 33.0 pg [facility] MCHC 30.9(L) 32.0 - 36.0 g/dL [facility] Comment: For adults, a slight decrease in the calculated MCHC value (in the range of 30 to 32 g/dL) is most likely not clinically significant; however, it should be interpreted with caution in correlation with other red cell parameters and the patient's clinical condition. RDW 13.5 11.0 - 15.0 % [facility] Platelet Count 302 140 - 400 Thousand/ uL [facility] MPV 12.3 7.5 - 12.5 fL [facility] Neutrophil Absolute 3516 1500 - 7800 cells/uL [facility] Absolute Bands [facility] Metamyelocytes Absolute [facility] Myelocytes Absolute [facility] Absolute Prolymphocytes [facility] Lymphocytes Absolute 1266 850 - 3900 cells/uL [facility] Absolute Monocytes 750 200 - 950 cells/uL [facility] Eosinophils Absolute 420 15 - 500 cells/uL [facility] Basophils Absolute 48 0 - 200 cells/uL [facility] Absolute Blasts [facility] nRBC Absolute [facility] Granulocytes % 58.6 % [facility] Band Neutrophil [facility] Metamyelocytes [facility] Myelocytes [facility] Promyelocytes [facility] Lymphocytes % 21.1 % [facility] Lymphocyte Reactive [facility] Monocytes % 12.5 % [facility] Eosinophils % 7.0 % [facility] Basophils % 0.8 % [facility] Comment: Test Performed at: [employer] [address] DAVE YU MD Blasts [facility] nRBC [facility] Comments [facility] Comment: Test Performed at: [employer] [facility] [employer] [facility] [address] DAVE YU MD Blood BLOOD SPECIMEN / Unknown 04/28/2025 9:08 AM CDT 04/28/2025 9:09 AM CDT Lisette Patton MD LAB - HEMATOLOGY ORDER SAKSHI Final Result [facility] [id number] [place] [address] * (ABNORMAL) COMPREHENSIVE METABOLIC PANEL (04/28/2025 9:08 AM CDT) Only the most recent of2 resultswithin the time period is included. Glucose 111(H) 65 - 99 mg/dL [facility] Comment: Fasting reference interval For someone without known diabetes, a glucose value between 100 and 125 mg/dL is consistent with prediabetes and should be confirmed with a follow-up test. BUN 12 7 - 25 mg/dL [facility] Creatinine 0.98 0.70 - 1.30 mg/dL [facility] eGFR by Cystatin C 89 > OR = 60 mL/min/1. 73m2 [facility] BUN/Creatinine Ratio SEE NOTE: 6 - 22 (calc) [facility] Comment: Not Reported: BUN and Creatinine are within reference range. Sodium 135 135 - 146 mmol/L [facility] Potassium 4.8 3.5 - 5.3 mmol/L [facility] Chloride 108 98 - 110 mmol/L [facility] CO2 18(L) 20 - 32 mmol/L [facility] Calcium 8.7 8.6 - 10.3 mg/dL [facility] Protein Total 7.8 6.1 - 8.1 g/dL [facility] Albumin 3.9 3.6 - 5.1 g/dL [facility] Globulin Total 3.9(H) 1.9 - 3.7 g/dL (calc) [facility] Albumin/Globulin Ratio 1.0 1.0 - 2.5 (calc) [facility] Bilirubin Total 0.4 0.2 - 1.2 mg/dL [facility] Alkaline Phosphatase 100 35 - 144 U/L [facility] AST 26 10 - 35 U/L [facility] Comment: Results slightly increased due to hemolysis. ALT 14 9 - 46 U/L [facility] Comment: Test Performed at: [employer], [place] [address] DAVE YU MD Blood BLOOD SPECIMEN / Unknown 04/28/2025 9:08 AM CDT 04/28/2025 9:09 AM CDT Lisette Patton MD LAB - CHEMISTRY ORDERA BLES Final Result Performing Organization Address [facility] Co de Phone Number [facility] [address] [place] [phone] * CULTURE URINE REFLEXED I (03/17/2025 9:17 AM CDT) Reflexive Urine Culture See Below [facility] Comment: NO CULTURE INDICATED Test Performed at: [facility], [place] [address] DAVE YU MD 03/17/2025 9:17 AM CDT 03/17/2025 9:18 AM CDT Lisette Patton MD LAB - MICROBIOLOGY ORD ERABLES Final Result Performing Organization Address [facility] Co de Phone Number [facility] [address] [place] [address] * RETINAL ANALYSIS OCT (03/02/2025 8:51 AM [...] No changes to initial visit as indicated Richar Julio OD OPHTHALMOLOGY SCHED ORD W [...] paracentral/central loss with plaquenil toxicity; reliability good Richar Julio OD OPHTHALMOLOGY SCHED ORD W PACS F inal Result * HEPATITIS C AB W/RFLX TO HCV RNA QN PCR (02/06/2024 11:42 AM CDT) Hepatitis C Antibody NON-REACTI VE NON-REACT [facility] Comment: HCV antibody was non-reactive. There is no laboratory evidence of HCV infection. In most cases, no further action is required. However, if recent HCV exposure is suspected, a test for HCV RNA (test code 30417) is suggested. For additional information please refer to http://education.WheresTheBus/faq/FPD95i8 (This link is being provided for informational/ educational purposes only.) Test Performed at: [employer] [facility] [address] [place] [address] DAVE YU MD 02/06/2024 11:4 2 AM CDT 02/06/2024 11:47 AM CDT Lisette Patton MD LAB - CHEMISTRY ORDERA MARC Final Result [facility] [id number] [place] [address] from Last 3 Months or Most Recently Relevant to Health Maintenance Insurance [facility] MEDICARE ADV HMO & PPO [facility] MEDICARE ADV HMO & PPO Care Teams Administration Vice President Relationship Specialty Start Date End Date Margie Rodríguez MD PCP - General 06/06/20
--- OUTSIDE RECORDS SUMMARY | 2025-05-30 08:28 | XMS_ITS | Patient Health Record ---
Author Organization [employer] [facility] Address [address] [facility] [address] [place], [place] [address] Care Team Providers Care Job Counselor Name Role Phone Sandy Bhakta Unavailable [phone] ALLERGIES Allergen (clinical drug ingredient) Drug/Non Drug Allergy documented on EMR Reaction Allergy Type Onset Date Status prednisone prednisone Unknown Drug Allergy Activ e fluoxetine Prozac zombic fed suicidal thoughts Drug Allergy Active duloxetine Cymbalta suicidal thoughts Drug Allergy Active REASON FOR [...] Code Notes Problem POLYARTHRITIS (716.59) Active confirmed Problem POSITIVE RHEUMATOID FACTOR (795.79) Active confirmed Rheumatoid factor positive (177409131) PLAN OF TREATMENT No Information MEDICAL (GENERAL) HISTORY Medical History History ICD Code Ringing in ears swelling of ankles/feet difficulty breathing painful urination weight gain erection difficulties anxiety depression Surgical History Surgery Date(Month/Year) sibacious cyst removed on 2014
--- OUTSIDE RECORDS SUMMARY | 2025-05-30 08:28 | XMS_ITS | Encounter Summary ---
Author Organization [facility] Address [address] [facility] [place] [address] Care Team Providers Care [employer] Principal Name Role Phone Margie Rodríguez MD Primary Care Provider Kelly ramsay Encounter Details Date Type Department Care Team (Late st Contact Info) Description 02/26/2021 Telephone [id number] [place] [address] Lauren Linn MD No info [...] Sex Assigned at Male 10/24/2022 12:58 PM SOAPING MACHINE BACK TENDER Legal Sex Male 5:13 PM SOAPING MACHINE BACK TENDER Gender Identity Male 10/24/2022 12:58 PM SOAPING MACHINE BACK TENDER Sexual Orientation Straight 10/24/2022 12 :58 PM SOAPING MACHINE BACK TENDER documented as of this encounter Patient Instructions * Patient Instructions* Rachael Abdullahi - 02/26/2021 3:44 PM CDT Patient called and needs a referral to see a pschiatrist at [facility]. Can Dr.Lena linn put in a referral [...] Description 06/09/2025 8:30 AM CDT [facility] [address] [place] [phone] 08/24/2025 9:30 AM CDT Office Visit [facility] - Rheumatology [address] [place] [phone] Dominique Olguin MD [address] [place] [address] [place] [phone] 03/02/2026 9:30 AM CDT Office Visit [facility] - Ophthalmology [address] [place] [phone] Richar Julio OD [address] [place] [phone] documented as of this encounter Visit Diagnoses Not on filedocumented in this encounter Care Teams [employer] Principal Relationship Specialty Start Date End Date Margie Rodríguez MD PCP - General 06/06/20 documented as of this encounter
--- OUTSIDE RECORDS SUMMARY | 2025-05-30 08:28 | XMS_ITS | Clinical Summary ---
Author Organization [facility] Address [address] [place] [address] Care Team Providers Care Photocopier Technician Name Role Phone Unavailable Primary Care Provider Unavailabl e Social History Tobacco Use Types Packs/Day Years Used Date Smoking Tobacco: Never Assessed Sex and Gender Information Value Date Recorded Sex Assigned at Not on file Legal Sex Male 8:16 PM CDT Gender Identity Not on file Sexual Orientation Not on file Last Filed Vital Signs Vital Sign Reading Time Taken Comments Blood Pressure 146/108 06/03/2014 8:05 AM CDT Pulse 91 06/03/2014 8:05 AM CDT Temperature - - Respiratory Rate - - Oxygen Saturation - - Inhaled Oxygen Concentration - - Weight 113.9 kg (251 lb) 06/03/2014 8:05 AM CDT Height 182.9 cm (6') 06/03/2014 8:05 AM CDT Body Mass Index 34.04 06/03/2014 8:05 AM CDT Plan of Treatment Health Maintenance Due Date Last Done Comments Colorectal Cancer Screening Colonoscopy (10 Years) 1965 Annual Physical 1968 Hepatitis C 1983 DTaP, Tdap and Td Vaccines ( 1 - Tdap) 1984 Pneumococcal Vaccine: 50+ Ye ars (1 of 1 - PCV) 2015 Zoster Vaccines (1 of 2) 2015 COVID-19 Vaccine ( - 2023-2 5 season) 2024 Meningococcal B Vaccine Aged Out No l onger eligible based on patient's age to complete this topic Meningococcal Vaccine Aged Out No jorge le eligible based on patient's age to complete this topic RSV Immunizations Under 20 Months Aged Out No longer eligible based on patient's age to complete this topic
--- NOTE | 2025-05-30 08:32 | ECG_ITS ---
Test Date: 2025-05-30 08:57:24 Measurements Intervals [place] Rate: 78 P: 20 CT: 179 QRS: -45 QRSD: 104 T: 96 QT: 375 QTc: 429 Interpretive Statements SINUS RHYTHM LOW QRS VOLTAGE IN PRECORDIAL LEADS [QRS DEFLECTION < 1.0 mV IN CHEST LEADS] LEFT ANTERIOR FASCICULAR BLOCK [QRS AXIS <= -45, QR IN I, RS IN II] ANTEROLATERAL MYOCARDIAL INFARCTION [40+ ms Q WAVE IN I/aVL/V3-V6], OF INDETERMINATE AGE No previous ECG available for comparison Electronically Signed On 05-30-2025 11:26:20 CDT by Georges Durand M.D.
== END 2025-05-30 08:23 | disposition home or self-care (01) ==
LOC: ANHSURGERY 08:25
PROVIDERS: PCP Nurse Practitioner Family; Visit Provider Otolaryngology Otolaryngology/Facial Plastic Surgery
DX: I10 Essential (primary) hypertension (principal); Z01.818 Encounter for other preprocedural examination; I44.4 Left anterior fascicular block
CPT/HCPCS: 93005

== ENCOUNTER 2025-06-27 07:23 | Outpatient (CLI) | payer MEDICARE, SELFPAY ==
--- OUTSIDE RECORDS SUMMARY | 2025-06-27 07:28 | XMS_ITS | Patient Health Record ---
Author Organization [facility] [facility] Address [address] [facility] [address] [place], [place] [address] Care Team Providers Care Supervisor Central Supply Name Role Phone Sandy Bhakta Unavailable [phone] ALLERGIES Allergen (clinical drug ingredient) Drug/Non Drug [...] Notes Problem POLYARTHRITIS (716.59) Active confirmed Polyarthritis (019767633) Problem POSITIVE RHEUMATOID FACTOR (795.79) Active confirmed PLAN OF TREATMENT No Information MEDICAL (GENERAL) HISTORY Medical History History ICD Code Ringing in ears swelling of ankles/feet difficulty breathing painful urination weight gain erection difficulties anxiety depression Surgical History Surgery Date(Month/Year) sibacious cyst removed on 2014
--- OUTSIDE RECORDS SUMMARY | 2025-06-27 07:28 | XMS_ITS | Clinical Summary ---
Author Organization [facility] Address [address] [place] [address] Care Team Providers Care Armored Service Technician Name Role Phone Unavailable Primary Care [...]
--- OUTSIDE RECORDS SUMMARY | 2025-06-27 07:28 | XMS_ITS | Clinical Summary ---
Author Organization [facility] Address [address] [facility] [place] [address] Care Team Providers Care Project Accountant Name Role Phone Margie Rodríguez MD Primary Care Provider Unavaila ble Source Comments [facility],non-owned Affiliates and Associated Physician Practices is amultiple site organization consisting of ambulatory clinics and hospital sitesin [place], [place], [place] and [place]. This disclosure is being madepursuant to the Care Everywhere program and may not contain all information available regarding this patient. Last updated 18.[facility] Allergies Active Allergy Reactions Criticality Noted Date [...] mouth once daily 90 tablet 1 5 Active predniSONE (Deltasone) 20 MG tablet TAKE [...] Encounters Date Type Department Care Team Description 06/09/2025 8:30 AM CDT Procedure visit [facility] [address] [place] [address] Rheumatoid arthritis, seropositive, multiple sites (HCC) 06/09/2025 Orders Only [facility] - [facility]ology [address] [facility], [place] [address] Lisette Patton MD 06/09/2025 Travel 04/28/2025 8:30 AM CDT Procedure visit [facility] [address] [place] [address] Rheumatoid arthritis, seropositive, multiple sites (HCC) 04/28/2025 Travel 04/26/2025 Travel 04/19/2025 9:30 AM CDT [facility] [address] [facility], [place] [address] Dominique Olguin MD Seropositive rheumatoid arthritis (HCC) (Primary Dx) 04/19/2025 Travel 04/08/2025 Orders Only [facility]ology [address] [facility], [place] [address] Lisette Patton MD Seropositive rheumatoid arthritis (HCC); Encounter for long-term (current) use of high-risk medication; Encounter for therapeutic drug monitoring; Screening-pulmonary TB from Last 3 Months Immunizations Immunization Administration [...] Recorded Patient Health Questionnaire-2 Score 0 04/28/2025 [facility] Occupat ional Health - Occupational Stress [...] place to sleep or slept in a half-way (including now)? No 02/13/2023 Education Answer Date Recorded What is the highest level of school you have completed or the highest degree you have received? High school graduate 02/13/2023 Sex and Gender Information Value Date Recorded Sex Assigned at Male 10/24/2022 12:58 PM TRANSIT MIXER DRIVER Legal Sex Male 5:13 PM TRANSIT MIXER DRIVER Gender Identity Male 10/24/2022 12:58 PM TRANSIT MIXER DRIVER Sexual Orientation Straight 10/24/2022 12 :58 PM TRANSIT MIXER DRIVER Occupation Industry Job Start Date Job End Date RETIRED Not on file Not on file Not on file Last Filed Vital Signs Vital Sign Reading Time Taken Comments Blood Pressure 123/82 06/09/2025 8:05 AM CDT Pulse 86 06/09/2025 8:05 AM CDT Temperature 35.9 C (96.6 F) 06/09/2025 8:05 AM CDT Respiratory Rate 12 06/09/2025 8:05 AM CDT Oxygen Saturation 96% 06/09/2025 8:05 AM CDT Inhaled Oxygen Concentration - - Weight 103.4 kg (228 lb) 06/09/2025 8:05 AM CDT Height 182.9 cm (6') 06/09/2025 8:05 AM CDT Body Mass Index 30.92 06/09/2025 8:05 AM CDT Plan of Treatment Upcoming Encounters Date Type Department Care Team (Late st Contact Info) Description 07/21/2025 8:30 AM CDT Procedure visit [facility] [place] [address] 08/24/2025 9:30 AM CDT Office Visit [facility] - Rheumatology [address] [place] [address], [place] [phone] Dominique Olguin MD [address] [place] [address] [place] [phone] 03/02/2026 9:30 AM CDT Office Visit [facility] Ophthalmology [address] [facility], [place] [address] Richar Julio, FLORENCIO [address] [place] [phone] Health Maintenance Due Date Last Done Comments [...] 09/09/2019, Additional history exists SCREENING FOR DIABETES 06/09/2028 5, 04/28/2025, 03/17/2025, Additional history exists HEPATITIS C SCREENING Completed [...] Priority Date/Time Associated Diagnosis Comments C-REACTIVE PROTEIN 06/09/2025 1: 34 PM CDT CBC W AUTO DIFFERENTIAL 06/09/2025 1:34 PM CDT URINALYSIS W/MICROSCOPIC REFLEX TO CULTURE 06/09/2025 1:34 PM CDT ERYTHROCYTE SEDIMENTATION RATE 06/09/2025 1:34 PM CDT COMPREHENSIVE METABOLIC PANEL 06/09/2025 1:34 PM CDT CULTURE URINE REFLEXED III 06/09/2025 1:34 PM CDT URINALYSIS W/MICROSCOPIC REFLEX TO CULTURE Routine 04/28/2025 [...] URINE REFLEXED III 04/28/2025 9:08 AM CDT HEPATITIS C AB W/RFLX TO HCV RNA QN PCR 02/06/2024 11:42 AM CDT from Last 3 Months or Most Recently Relevant to Health Maintenance Results * CULTURE URINE REFLEXED III (06/09/2025 1:34 PM CDT) Only the most recent of2 resultswithin the time period is included. Reflexive Urine Culture See Below [facility] Comment: NO CULTURE INDICATED Test Performed at: [facility] [address] DAVE YU MD 06/09/2025 1:34 PM CDT 06/09/2025 1:38 PM CDT us Lisette Patton MD LAB - MICROBIOLOGY ORD ERABLES Final Result [address] [address] * (ABNORMAL) URINALYSIS W/MICROSCOPIC REFLEX TO CULTURE (06/09/2025 1:34 PM CDT) Only the most recent of2 resultswithin the time period is included. Color UA YELLOW YELLOW [facility] Appearance CLEAR CLEAR [facility] Specific [place] UA 1.019 1.001 - 1.035 [facility] pH UA 6.0 [...] elements seen were reported. Test Performed at: [facility] [address] DAVE YU MD 06/09/2025 1:34 PM CDT 06/09/2025 1:38 PM CDT us Lisette Patton MD LAB - URINALYSIS ORDER SAKSHI Final Result Performing Organization Address [facility] Co de Phone Number [address] [address] * (ABNORMAL) C-REACTIVE PROTEIN (06/09/2025 1:34 PM CDT) Only the most recent of2 resultswithin the time period is included. C-Reactive Protein 9.0(H) <8.0 mg/L [facility] Comment: Test Performed at: [facility] [address] DAVE YU MD 06/09/2025 1:34 PM CDT 06/09/2025 1:38 PM CDT Lisette Patton MD LAB - CHEMISTRY ORDERA BLES Final Result Performing Organization Address [facility] Co de Phone Number [address] [address] * (ABNORMAL) ERYTHROCYTE SEDIMENTATION RATE (06/09/2025 1:34 PM CDT) Only the most recent of2 resultswithin the time period is included. Erythrocyte Sedimentation Rate Westergren 56(H) < OR = 20 mm/h [facility] Comment: Test Performed at: [facility] [address] DAVE YU MD 06/09/2025 1:34 PM CDT 06/09/2025 1:38 PM CDT us Lisette Patton MD LAB - HEMATOLOGY ORDER SAKSHI Final Result Performing Organization Address [facility] Co de Phone Number [address] [address] * (ABNORMAL) CBC WITH DIFFERENTIAL (06/09/2025 1:34 PM CDT) Only the most recent of2 resultswithin the time period is included. Pathologist [facility] White Blood Cell Count 5.6 3.8 - 10.8 Thousand/ uL [facility] RBC 4.75 4.20 - 5.80 Million/u L [facility] Hemoglobin 13.8 13.2 - 17.1 g/dL [facility] Hematocrit 43.5 38.5 - 50.0 % [facility] MCV 91.6 80.0 - 100.0 fL [facility] MCH 29.1 27.0 - 33.0 pg [facility] MCHC 31.7(L) 32.0 - 36.0 g/dL [facility] Comment: For adults, a slight decrease in the calculated MCHC value (in the range of 30 to 32 g/dL) is most likely not clinically significant; however, it should be interpreted with caution in correlation with other red cell parameters and the patient's clinical condition. RDW 13.7 11.0 - 15.0 % [facility] Platelet Count 256 140 - 400 Thousand/ uL [facility] MPV 12.7(H) 7.5 - 12.5 fL [facility] Neutrophil Absolute 2968 1500 - 7800 cells/uL [facility] Lymphocytes Absolute 1361 850 - 3900 cells/uL [facility] Absolute Monocytes 734 200 - 950 cells/uL [facility] Eosinophils Absolute 487 15 - 500 cells/uL [facility] Basophils Absolute 50 0 - 200 cells/uL [facility] Granulocytes % 53 % [facility] Lymphocytes % 24.3 % [facility] Monocytes % 13.1 % [facility] Eosinophils % 8.7 % [facility] Basophils % 0.9 % [facility] Comment: Test Performed at: [facility] [address] DAVE YU MD 06/09/2025 1:34 PM CDT 06/09/2025 1:38 PM CDT us Lisette Patton MD LAB - HEMATOLOGY ORDER SAKSHI Final Result [address] [address] * (ABNORMAL) COMPREHENSIVE METABOLIC PANEL (06/09/2025 1:34 PM CDT) Only the most recent of2 resultswithin the time period is included. [facility] Glucose 83 65 - 99 mg/dL [facility] Comment: Fasting reference interval BUN 12 7 - 25 mg/dL [facility] Creatinine 1.18 0.70 - 1.30 mg/dL [facility] eGFR by Cystatin C 71 > OR = 60 mL/min/1. 73m2 [facility] BUN/Creatinine Ratio SEE NOTE: 6 - 22 (calc) [facility] Comment: Not Reported: BUN and Creatinine are within reference range. Sodium 137 135 - 146 mmol/L [facility] Potassium 4.3 3.5 - 5.3 mmol/L [facility] Chloride 108 98 - 110 mmol/L [facility] CO2 22 20 - 32 mmol/L [facility] Calcium 9.0 8.6 - 10.3 mg/dL [facility] Protein Total 7.7 6.1 - 8.1 g/dL [facility] Albumin 3.9 3.6 - 5.1 g/dL [facility] Globulin Total 3.8(H) 1.9 - 3.7 g/dL (calc) [facility] Albumin/Globulin Ratio 1.0 1.0 - 2.5 (calc) [facility] Bilirubin Total 0.3 0.2 - 1.2 mg/dL [facility] Alkaline Phosphatase 106 35 - 144 U/L [facility] AST 19 10 - 35 U/L [facility] ALT 12 9 - 46 U/L [facility] Comment: Test Performed at: [facility] [address] DAVE YU MD 06/09/2025 1:34 PM CDT 06/09/2025 1:38 PM CDT Lisette Patton MD LAB - CHEMISTRY ORDERA BLE Final Result [address] [address] * HEPATITIS C AB W/RFLX TO HCV RNA QN PCR (02/06/2024 11:42 AM CDT) Hepatitis C Antibody NON-REACTI VE NON-REACT [facility] Comment: HCV antibody was non-reactive. There is no laboratory evidence of HCV infection. In most cases, no further action is required. However, if recent HCV exposure is suspected, a test for HCV RNA (test code 63375) is suggested. For additional information please refer to http://education.Thoughtful Movers/faq/DWY69g1 (This link is being provided for informational/ educational purposes only.) Test Performed at: [facility] [place] [address] [address] DAVE YU MD 02/06/2024 11:4 2 AM CDT 02/06/2024 11:47 AM CDT Lisette Patton MD LAB - CHEMISTRY ORDERA BLES Final Result [facility] [address] [place] [address] from Last 3 Months or Most Recently Relevant to Health Maintenance Insurance [facility] MEDICARE ADV HMO & PPO [facility] MEDICARE ADV HMO & PPO Care Teams Project Accountant Relationship Specialty Start Date End Date Margie Rodríguez MD PCP - General 06/06/20
--- OUTSIDE RECORDS SUMMARY | 2025-06-27 07:28 | XMS_ITS | Encounter Summary ---
Author Organization [facility] Address [address] [facility] [place] [address] Care Team Providers Care Wrecking Car Driver Name Role Phone Margie Rodríguez MD Primary Care Provider Kelly ramsay Encounter Details Date Type Department Care Team (Late st Contact Info) Description 02/26/2021 Telephone [place] [phone] [place] [address] Lauren Linn MD No info [...] Sex Assigned at Male 10/24/2022 12:58 PM TRANSPORTATION LEAD Legal Sex Male 5:13 PM TRANSPORTATION LEAD Gender Identity Male 10/24/2022 12:58 PM TRANSPORTATION LEAD Sexual Orientation Straight 10/24/2022 12 :58 PM TRANSPORTATION LEAD documented as of this encounter Patient Instructions * Patient Instructions* Rachael Abdullahi - 02/26/2021 3:44 PM CDT Patient called and needs a referral to see a pschiatrist at [facility]. Can Dr.Lena linn put in a referral [...] Description 07/21/2025 8:30 AM CDT [facility] [address] [place] [phone] 08/24/2025 9:30 AM CDT Office Visit [facility] - Rheumatology [address] [place] [phone] Dominique Olguin MD [address] [place] [address] [place] [phone] 03/02/2026 9:30 AM CDT Office Visit [facility] - Ophthalmology [address] [place] [phone] Richar Julio OD [address] [place] [phone] documented as of this encounter Visit Diagnoses Not on filedocumented in this encounter Care Teams Wrecking Car Driver Relationship Specialty Start Date End Date Margie Rodríguez MD PCP - General 06/06/20 documented as of this encounter
[2025-06-27 08:04] LABS: Hematocrit 42.6 % (42.0-52.0); Hemoglobin 13.6 g/dL (14.0-18.0); Immature Granulocyte Percent A 0.4 % (0-0.5); Lymphocytes Absolute Auto 1.25 K/mm3 (0.9-3.2); Mean Corpuscular HGB Conc 31.9 g/dl (32-36); Mean Corpuscular Hemoglobin 28.5 pg (26-34); Mean Corpuscular Volume 89.1 fl (80-100); Nucleated Red Blood Cells Absolute Auto 0.000 K/mm3 (0.0-0.012); Nucleated Red Blood Cells Perc 0.0 % (0.0-0.2); Platelet Count Result 254 k/mm3 (150-375); Red Blood Count 4.78 M/mm3 (4.6-6.20); White Blood Count 5.5 K/mm3 (4.5-10.0)
[2025-06-27 08:22] LABS: Alanine Aminotransferase 20 U/L (6-50); Albumin Level 3.9 g/dL (3.5-5.1); Alkaline Phosphatase 98 U/L (38-126); Anion Gap 9 mmol/L (4-12); Aspartate Amino Transferase 38 U/L (17-59); Bilirubin,Total 0.4 mg/dL (0.2-1.3); Blood Urea Nitrogen 13 mg/dL (9-20); Calcium 8.8 mg/dL (8.4-10.2); Carbon Dioxide 20 mmol/L (22-30); Chloride 109 mmol/L (98-107); Cholesterol 191 mg/dL (0-200); Estimated Glomerular Filt Rate > 60; Glucose 110 mg/dL (65-110); HDL Direct 34 mg/dL; Potassium 3.6 mmol/L (3.4-5.0); Sodium 138 mmol/L (137-145); Total Protein 8.1 g/dL (6.3-8.2); Triglycerides 163 mg/dL (<150)
[2025-06-27 08:38] LABS: Hemoglobin A1C 5.7 % (<5.7)
[2025-06-27 08:44] LABS: Thyroid Stimulating Hormone Reflex 2.950 uIU/mL (0.465-4.68)
[2025-06-27 08:57] LABS: Prostate Specific Antigen 0.5 ng/mL (< OR = 4.0)
== END 2025-06-27 07:24 | disposition home or self-care (01) ==
PROVIDERS: PCP Nurse Practitioner Family; Visit Provider Internal Medicine Cardiovascular Disease
DX: R73.03 Prediabetes (principal); I10 Essential (primary) hypertension; R53.83 Other fatigue; E55.9 Vitamin D deficiency, unspecified; Z12.5 Encounter for screening for malignant neoplasm of prostate
CPT/HCPCS: 36415; 80053; 80061; 82306; 83036; 84153; 84443; 85025; G0103

== ENCOUNTER 2025-08-01 07:32 | Outpatient (CLI) | payer MEDICARE, SELFPAY ==
--- NOTE | 2025-08-01 07:54 | ECHO_ITS ---
Patient Info Name: Edward Atwood Age: 59 years : 1965 Gender: Male Ht: 72 in Wt: 230 lbs BSA: 2.33 m2 HR: 71 bpm BP: 120 / 92 mmHg Heart Rhythm: Sinus Rhythm Technical Quality: Fair Exam Date: 08/01/2025 8:14 AM Patient Status: O Admit Date: 08/01/2025 Exam Type: CA echo dop color flow w con Complete two-dimensional, color flow and Doppler transthoracic echocardiogram is performed with contrast to opacify the left ventricle and to improve the deliniation of the left ventricle endocardial borders. Mammographer: Violetta Giron Attending Provider: Talat Vicente DO Contrast/Agitated Saline Contrast/Ag. Saline: Definity Amount: 2.00 ml Administered By: Violetta Giron IV Access Condition: patent with no signs of infiltration New IV Access: Left Summary 1. Definity contrast administered improved wall motion interpretation. 2. Left ventricular chamber dimension is mildly enlarged. 3. Left ventricular systolic function is moderately reduced, estimated at 40-45. 4. 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 5. The left ventricular diastolic function is grade I diastolic dysfunction. 6. E/e' 12 is mildly elevated. 7. No pulmonary hypertension, estimated pulmonary arterial systolic pressure is 24 mmHg. 8. There is trace pulmonic regurgitation. Left Ventricle Definity contrast administered improved wall motion interpretation. Left ventricular chamber dimension is mildly enlarged. Left ventricular systolic function is moderately reduced, estimated at 40-45. The left ventricular diastolic function is grade I diastolic dysfunction. E/e' 12 is mildly elevated. 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 Right Ventricle Right ventricular chamber dimension is normal. Right ventricular systolic function is normal and with normal TAPSE 2.0 cm. Left Atria Left atrial chamber dimension is normal. Right Atria Right atrial chamber dimension is normal. Aortic Valve The aortic valve is trileaflet. There is no aortic valve stenosis. There is no aortic valve regurgitation. Pulmonic Valve There is trace pulmonic regurgitation. Mitral Valve There is no mitral valve stenosis. There is no mitral valve regurgitation. Tricuspid Valve There is no tricuspid valve regurgitation. No pulmonary hypertension, estimated pulmonary arterial systolic pressure is 24 mmHg. Pericardium/Pleural There is no pericardial effusion. Inferior Vena Cava Normal inferior vena cava with >50% collapse upon inspiration consistent with normal right atrial pressure, 5 mmHg. Aorta The aortic root size at the sinus of Valsalva is normal. Left Ventricular Outflow Tract Name Value Normal LVOT 2D LVOT Diameter 2.0 cm LVOT Doppler LVOT Peak Velocity 82 cm/s LVOT Peak Gradient 3 mmHg LVOT Mean Gradient 1 mmHg LVOT VTI 15 cm LVOT VTI/AV VTI Ratio 0.6 LVOT Stroke Volume 49 ml LVOT CO 10.1 l/min LVOT CI 4.3 l/min/m2 Pulmonic Valve Name Value Normal RVOT Doppler RVOT Peak Velocity 69 cm/s RVOT Peak Gradient 2 mmHg PV Doppler PV Peak Velocity 102 cm/s PV Peak Gradient 4 mmHg Mitral Valve Name Value Normal MV Diastolic Function MV E Peak Velocity 65 cm/s MV A Peak Velocity 87 cm/s MV E/A 0.7 MV Decel Time (PW) 245 ms MV Annular TDI MV E/e' (Septal) 13.4 MV E/e' (Lateral) 12.5 MV E/e' (Average) 13.0 Tricuspid Valve Name Value Normal TV Regurgitation Doppler TR Peak Velocity 220 cm/s TR Peak Gradient 19 mmHg Estimated PAP/RSVP RA Pressure 5 mmHg <=5 PA Systolic Pressure 24 mmHg <36 RV Systolic Pressure 24 mmHg <36 TV Annular TDI TV Lateral Vicki s' Velocity 8.6 cm/s >=9.5 Aorta Name Value Normal Ascending Aorta Ao Root Diameter (MM) 2.9 cm Ao Root Diam Index (MM) 1.3 cm/m2 Aortic Valve Name Value Normal AV Doppler AV Peak Velocity 133 cm/s AV Peak Gradient 7 mmHg AV Mean Gradient 3 mmHg AV VTI 25 cm AV Area (Cont Eq VTI) 1.9 cm2 >=3.0 AV Area (Cont Eq Pascual) 2.0 cm2 AV DI (Pascual) 0.62 AV Regurgitation 2D LVOT Area 3.2 cm2 Ventricles Name Value Normal LV Dimensions 2D/MM IVS Diastolic Thickness (2D) 1.0 cm 0.6-1.0 LVID Diastole (2D) 5.9 cm 4.2-5.8 LVIW Diastolic Thickness (2D) 1.0 cm 0.6-1.0 LVID Systole (2D) 3.3 cm 2.5-4.0 LVOT Diameter 2.0 cm LV Mass (2D Cubed) 242.77 g 88.00-224.00 LV Mass Index (2D Cubed) 104 g/m2 49-115 Relative Wall Thickness (2D) 0.33 <=0.42 LV Fractional Shortening/Ejection Fraction 2D/MM LV Fractional Shortening (2D) 44 % 25-43 LV EF (2D Teichholz) 74 % LV Diastolic Volume (4C MOD) 177 ml LV EF (4C MOD) 41 % LV Diastolic Volume (2C MOD) 148 ml LV EF (2C MOD) 34 % LV Diastolic Volume (BP MOD) 174 ml 62-150 LV Diastolic Volume Index (BP MOD) 75 ml/m2 34-74 LV Systolic Volume (BP MOD) 102 ml 21-61 LV Systolic Volume Index (BP MOD) 44 ml/m2 11-31 LV EF (BP MOD) 42 % 52-72 LV Diastolic Length (4C) 10.3 cm LV Systolic Length (4C) 8.4 cm LV Stroke Volume (4C MOD) 72 ml Atria Name Value Normal LA Dimensions LA Dimension (MM) 4.0 cm 3.0-4.0 LA Volume (4C A-L) 56 ml LA Volume (BP A-L) 64 ml RA Dimensions RA Area (4C) 14.2 cm2 <=18.0 Report Signatures
[2025-08-01] MEDS: PERFLUTREN LIPID MICROSPHERES 1.5 ML VIAL DILUTED TO 10 ML TOTAL VOLUME IV PUSH (08:30)
--- NOTE | 2025-08-01 11:07 | IVDEFINITY ---
Prior to administration of IV Definity the patient was educated on the risks and benefits of the imaging enhancing agent including potential adverse side effects. The patient verbalized understanding. Allergies were verified. No exclusion criteria were identified and at least one of the following inclusion criteria were met: 1) physician request, 2) patient technically difficult to image (per the [place] [employer] Echocardi[employer] guidelines of two or more segments not discernable within the apical view), or 3) questionable left ventricular function. ?
== END 2025-08-01 07:33 | disposition home or self-care (01) ==
PROVIDERS: PCP Nurse Practitioner Family; Visit Provider Internal Medicine Cardiovascular Disease
DX: R06.09 Other forms of dyspnea (principal)
CPT/HCPCS: C8929; Q9957

== ENCOUNTER 2025-08-01 07:35 | Outpatient (CLI) | payer MEDICARE, SELFPAY ==
--- NOTE | ~2025-08-01 | NM_ITS ---
EXAMINATION: NM ruth ann stress w perfusion DATE: 08/01/2025 11:47 INDICATION: Encounter for preprocedural cardiovascular examination TECHNIQUE: Rest images were obtained following intravenous administration of 10.9 mCi Tc99m tetrofosmin (Myoview). The patient was infused intravenously with Lexiscan (Regadenoson). Then, 31.8 mCi Tc99m tetrofosmin (Myoview) was administered intravenously, and stress images were obtained. Data was guadalupe nstructed into short axis and horizontal and vertical long axis SPECT images. Gated SPECT images were also obtained. COMPARISON: 06/08/2020 FINDINGS: There is a new large severe nonreversible infarct involving the apical, the inferior, septal, anterior and lateral apical and the mid anterior and mid anterolateral segments. No reversible ischemia.. There is normal left ventricular chamber size with moderately decreased left ventricular ejection fraction measuring 31%. IMPRESSION: 1. Large severe infarct involving the apical, all of the periapical in the mid anterior and mid anterolateral segments. No reversible ischemia. 2. Moderately decreased left ventricular ejection fraction measuring 31%. Reviewed, dictated and finalized at location A.
--- NOTE | 2025-08-01 07:55 | EST_ITS ---
Patient Info Name: Edward Atwood Age: 59 years : 1965 Gender: Male Ht: 72 in Wt: 230 lbs BSA: 2.33 m2 HR: 66 bpm BP: 118 / 84 mmHg Exam Date: 08/01/2025 7:55 AM Patient Status: O Admit Date: 08/01/2025 Exam Type: CA stress ruth ann w NM A regadenoson stress test was performed. Staff Referring Physician: Talat Vicente DO Attending Provider: Talat Vicente DO Exercise Technologist: Lacie Laws Exercise Physician: Talat Vicente DO Summary 1. 1. Negative lexiscan stress test for ischemic ST changes by ECG criteria. 2. 2. Stable hemodynamics throughout the test. 3. 3. Nuclear scan to follow and will be reported separately. Please correlate with it. 4. 4. Patient informed of the above results. Protocol: Lexiscan Stress ECG Details Stage: REST Duration (min): 1 min : 0 sec HR (bpm): 66 SBP (mmHg): 118 DBP (mmHg): 84 Stage: REST Duration (min): 5 min : 7 sec HR (bpm): 66 SBP (mmHg): 118 DBP (mmHg): 84 Stage: STAGE 1 Duration (min): 0 min : 59 sec HR (bpm): 75 SBP (mmHg): 112 DBP (mmHg): 79 Stage: RECOVERY Duration (min): 1 min : 0 sec HR (bpm): 91 SBP (mmHg): 112 DBP (mmHg): 79 Stage: RECOVERY Duration (min): 2 min : 0 sec HR (bpm): 84 SBP (mmHg): 112 DBP (mmHg): 79 Stage: RECOVERY Duration (min): 2 min : 48 sec HR (bpm): 81 SBP (mmHg): 123 DBP (mmHg): 81 Rest HR: 66 bpm Peak HR: 91 bpm Rest Sys BP: 118 mmHg Peak Sys BP: 123 mmHg Max Pred HR: 161 bpm % Max Pred HR: 57 % Target HR: 137 bpm Max RPP: 11,193 bpm*mmHg Termination Reason: Completed protocol Cardiac Symptoms: Shortness of breath Total Time: 1 min : 0 sec Rest Goodman BP: 84 mmHg Peak Goodman BP: 81 mmHg Total Dose: 0.4 mg Resting ECG Sinus rhythm, anterior infarct, age indeterminate. Stress ECG No ST changes. Arrhythmias None. Report Signatures
--- OUTSIDE RECORDS SUMMARY | 2025-08-01 07:56 | XMS_ITS | Clinical Summary ---
Author Organization [facility] Address [address] [place] [address] Care Team Providers Care V/Stol Landing Signal Officer Name Role Phone Unavailable Primary Care Provider [...] COVID-19 Vaccine ( - 2023-2 5 season) 2025 Meningococcal B Vaccine Aged Out No l onger eligible based on patient's age to complete this topic Meningococcal Vaccine Aged Out No jorge le eligible based on patient's age to complete this topic RSV Immunizations Under 20 Months Aged Out No longer eligible based on patient's age to complete this topic
--- OUTSIDE RECORDS SUMMARY | 2025-08-01 07:56 | XMS_ITS | Encounter Summary ---
Author Organization [facility] Address [address] [place] [address] Care Team Providers Care Electronic Systems Technician Name Role Phone Margie Rodríguez MD Primary Care Provider Kelly ramsay Encounter Details Date Type Department Care Team (Late st Contact Info) Description 02/26/2021 Telephone [place] [phone] [place] [address] Lauren Linn MD No info [...] Sex Assigned at Male 10/24/2022 12:58 PM INTELLIGENCE INTERN Legal Sex Male 5:13 PM INTELLIGENCE INTERN Gender Identity Male 10/24/2022 12:58 PM INTELLIGENCE INTERN Sexual Orientation Straight 10/24/2022 12 :58 PM INTELLIGENCE INTERN documented as of this encounter Patient Instructions * Patient Instructions* Rachael Abdullahi - 02/26/2021 3:44 PM CDT Patient called and needs a referral to see a pschiatrist at [facility]. Can Dr.Lena linn put in a referral [...] Care Team (Late st Contact Info) Description 08/24/2025 9:30 AM CDT [facility] [address] [place] [phone] Dominique Olguin MD [address] [place] [address] [place] [phone] 09/07/2025 8:15 AM CDT [facility] [address] [place] [address] 03/02/2026 9:30 AM CDT Office Visit [facility] - Ophthalmology [address] [place] [address], [place] [phone] Richar Julio, FLORENCIO [address] [place] [phone] documented as of this encounter Visit Diagnoses Not on filedocumented in this encounter Care Teams Electronic Systems Technician Relationship Specialty Start Date End Date Margie Rodríguez MD PCP - General 06/06/20 documented as of this encounter
--- OUTSIDE RECORDS SUMMARY | 2025-08-01 07:56 | XMS_ITS | Clinical Summary ---
Author Organization [facility] [employer] Address [address] [place] [address] Care Team Providers Care Order Dispatcher Name Role Phone Margie Rodríguez MD Primary Care Provider Unavaila ble Source Comments [facility] [employer],non-owned Affiliates and Associated Physician Practices is amultiple site organization consisting of ambulatory clinics and hospital sitesin [place], [place], [place] and [place]. This disclosure is being madepursuant to the Care Everywhere program and may not contain all information available regarding this patient. Last updated 18.[facility] [employer] Allergies Active Allergy Reactions Criticality Noted Date [...] Active Problems Problem Noted Date Diagnosed Date Positive RUBIO (antinuclear antibody) 07/27/2025 Foot arthropathy 07/27/2025 GERD without esophagitis 07/27/2025 History of total knee replacement 07/27/2025 Overview (07/27/2025): Right Laryngopharyngeal reflux 07/27/2025 Left shoulder pain 07/27/2025 Medication nonadherence due to intolerance 07/27 MRSA (methicillin resistant staph aureus) cultur e positive 07/27/2025 Nasal congestion 07/27/2025 Nasal polyp, unspecified 07/27/2025 Paresis of right vocal cord 07/27/2025 Chronic ethmoidal sinusitis 07/27/2025 Chronic pain 07/27/2025 Chronic sinusitis 07/27/2025 Chronic sinusitis of both maxillary sinuses 07/11 Combined hyperlipidemia 07/27/2025 Depression with anxiety 07/27/2025 Deviated septum 07/27/2025 Family history of colon cancer in father 025 Post-nasal drip 07/27/2025 Postoperative pain after spinal surgery 07/27/20 25 Postoperative stitch abscess 07/27/2025 Prediabetes 07/27/2025 Moderate episode of recurrent major depressive d isorder 12/24/2022 Undifferentiated inflammatory polyarthritis 08/11 Rheumatoid factor positive 08/30/2019 Rheumatoid arthritis involving left knee 019 Body mass index (bmi) 31.0-31.9, adult 9 Hypertensive disorder 01/16/2018 Obstructive sleep apnea syndrome 01/16/2018 Tobacco dependence syndrome 01/16/2018 Rheumatoid arthritis, seropositive, multiple sit es 02/06/2017 Seropositive rheumatoid arthritis 12/14/2015 Encounters Date Type Department Care Team Description 07/27/2025 8:30 AM CDT Procedure visit [facility] - Infusion [address] [place] [address] Rheumatoid arthritis, seropositive, multiple sites (HCC) 07/27/2025 Orders Only [facility] - Rheumatology [address] [place] [phone] Lisette Patton MD 07/27/2025 Travel 06/09/2025 8:30 AM CDT Procedure visit [facility] [address] [place] [address] Rheumatoid arthritis, seropositive, multiple sites (HCC) 06/09/2025 Orders Only [facility] - Rheumatology [address] [place] [phone] Lisette Patton MD 06/09/2025 Travel from Last 3 Months Immunizations Immunization Administration Dates Next Due INFLUENZA VACCINE, TRIV. (AF LURIA, FLUZONE TRIVALENT; 6MO+) (IIV3) 10/29/2024,11/25/2013 FLU VACCINE QUAD IIV4 PF ID 09/14/2018 INFLUENZA VACCINE 09/03/2017 INFLUENZA VACCINE, QUADR. (F LUZONE; FLULAVAL; FLUARIX; AFLURIA QUADRIVALENT; 6MO+), 0.5 ML (IIV4) 07/17/2023,07/24/2022,07/25/2020,2018 Influenza Intradermal 09/03/2017 Family History Medical History [...] Recorded Patient Health Questionnaire-2 Score 0 04/28/2025 [facility] - Occupational Stress [...] place to sleep or slept in a retirement (including now)? No 02/13/2023 Education Answer Date Recorded What is the highest level of school you have completed or the highest degree you have received? 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 Legal Sex Male 5:13 PM MARKETING SALES MANAGER Gender Identity Male 10/24/2022 12:58 PM MARKETING SALES MANAGER Sexual Orientation Straight 10/24/2022 12 :58 PM MARKETING SALES MANAGER Occupation Industry Job Start Date Job End Date RETIRED Not on file Not on file Not on file Last Filed Vital Signs Vital Sign Reading Time Taken Comments Blood Pressure 127/90 07/27/2025 7:55 AM CDT Pulse 82 07/27/2025 7:55 AM CDT Temperature 36 C (96.8 F) 07/27/2025 7:55 AM CDT Respiratory Rate 14 07/27/2025 7:55 AM CDT Oxygen Saturation 95% 07/27/2025 7:55 AM CDT Inhaled Oxygen Concentration - - Weight 103.5 kg (228 lb 1.6 oz) 07/27/2025 7:55 AM CDT Height 182.9 cm (6') 07/27/2025 7:55 AM CDT Body Mass Index 30.94 07/27/2025 7:55 AM CDT Plan of Treatment Upcoming Encounters Date Type Department Care Team (Late st Contact Info) Description 08/24/2025 9:30 AM CDT Office Visit [facility] - Rheumatology [address] [facility] [address] [facility], [place] [phone] Dominique Olguin MD [address] [facility] [place] [phone] 09/07/2025 8:15 AM CDT Procedure visit [facility] [address] [place] [phone] 03/02/2026 9:30 AM CDT Office Visit [facility] - Ophthalmology [address] [facility], [place] [phone] Richar Julio OD [address] [place] [phone] Health Maintenance Due Date Last Done Comments [...] CALENDAR YEAR 2024 INFLUENZA VACCINE (#1) 2025 4, 07/17/2023, 07/24/2022, Additional history exists SCREENING FOR DIABETES 07/27/2028 5, 06/09/2025, 04/28/2025, Additional history exists HEPATITIS C SCREENING Completed [...] Priority Date/Time Associated Diagnosis Comments C-REACTIVE PROTEIN 07/27/2025 11 :40 AM CDT CBC W AUTO DIFFERENTIAL 07/27/2025 11:40 AM CDT URINALYSIS W/MICROSCOPIC REFLEX TO CULTURE 07/27/2025 11:40 AM CDT ERYTHROCYTE SEDIMENTATION RATE 07/27/2025 11:40 AM CDT COMPREHENSIVE METABOLIC PANEL 07/27/2025 11:40 AM CDT CULTURE URINE REFLEXED III 07/27/2025 11:40 AM CDT C-REACTIVE PROTEIN 06/09/2025 1: 34 PM CDT CBC W AUTO DIFFERENTIAL 06/09/2025 1:34 PM CDT URINALYSIS W/MICROSCOPIC REFLEX TO CULTURE 06/09/2025 1:34 PM CDT ERYTHROCYTE SEDIMENTATION RATE 06/09/2025 1:34 PM CDT COMPREHENSIVE METABOLIC PANEL 06/09/2025 1:34 PM CDT CULTURE URINE REFLEXED III 06/09/2025 1:34 PM CDT HEPATITIS C AB W/RFLX TO HCV RNA QN PCR 02/06/2024 11:42 AM CDT from Last 3 Months or Most Recently Relevant to Health Maintenance Results * CULTURE URINE REFLEXED III (07/27/2025 11:40 AM CDT) Only the most recent of2 resultswithin the time period is included. Reflexive Urine Culture See Below [facility] Comment: NO CULTURE INDICATED Test Performed at: [facility] [address] DAVE YU MD 07/27/2025 11:4 0 AM CDT 07/27/2025 2:28 PM CDT Lisette Patton MD LAB - MICROBIOLOGY ORD ERABLES Final Result [address] [address] * (ABNORMAL) URINALYSIS W/MICROSCOPIC REFLEX TO CULTURE (07/27/2025 11:40 AM CDT) Only the most recent of2 resultswithin the time period is included. Color UA YELLOW YELLOW [facility] Appearance CLEAR CLEAR [facility] Specific [place] UA 1.014 1.001 - 1.035 [facility] pH UA 6.0 [...] elements seen were reported. Test Performed at: [facility] [address] DAVE YU MD 07/27/2025 11:4 0 AM CDT 07/27/2025 2:28 PM CDT us Lisette Patton MD LAB - URINALYSIS ORDER SAKSHI Final Result Performing Organization Address [facility] Co de Phone Number [address] [address] * (ABNORMAL) C-REACTIVE PROTEIN (07/27/2025 11:40 AM CDT) Only the most recent of2 resultswithin the time period is included. C-Reactive Protein 13.9(H) <8.0 mg/L [facility] Comment: Test Performed at: [facility] [address] DAVE YU MD 07/27/2025 11:4 0 AM CDT 07/27/2025 2:28 PM CDT us Lisette Patton MD LAB - CHEMISTRY ORDERA BLES Final Result Performing Organization Address [facility] de Phone Number [address] [address] * (ABNORMAL) ERYTHROCYTE SEDIMENTATION RATE (07/27/2025 11:40 AM CDT) Only the most recent of2 resultswithin the time period is included. Erythrocyte Sedimentation Rate Westergren 42(H) < OR = 20 mm/h [facility] Comment: Test Performed at: [facility] [address] DAVE YU MD 07/27/2025 11:4 0 AM CDT 07/27/2025 2:28 PM CDT us Lisette Patton MD LAB - HEMATOLOGY ORDER SAKSHI Final Result Performing Organization Address [facility] Co de Phone Number [address] [address] * (ABNORMAL) CBC WITH DIFFERENTIAL (07/27/2025 11:40 AM CDT) Only the most recent of2 resultswithin the time period is included. [facility] White Blood Cell Count 6.4 3.8 - 10.8 Thousand/ uL [facility] RBC 4.90 4.20 - 5.80 Million/u L [facility] Hemoglobin 13.9 13.2 - 17.1 g/dL [facility] Hematocrit 45.1 38.5 - 50.0 % [facility] MCV 92.0 80.0 - 100.0 fL [facility] MCH 28.4 27.0 - 33.0 pg [facility] MCHC 30.8(L) 32.0 - 36.0 g/dL [facility] Comment: For adults, a slight decrease in the calculated MCHC value (in the range of 30 to 32 g/dL) is most likely not clinically significant; however, it should be interpreted with caution in correlation with other red cell parameters and the patient's clinical condition. RDW 13.7 11.0 - 15.0 % [facility] Platelet Count 288 140 - 400 Thousand/ uL [facility] MPV 12.3 7.5 - 12.5 fL [facility] Neutrophil Absolute 3699 1500 - 7800 cells/uL [facility] Lymphocytes Absolute 1440 850 - 3900 cells/uL [facility] Absolute Monocytes 800 200 - 950 cells/uL [facility] Eosinophils Absolute 390 15 - 500 cells/uL [facility] Basophils Absolute 70 0 - 200 cells/uL [facility] Granulocytes % 57.8 % [facility] Lymphocytes % 22.5 % [facility] Monocytes % 12.5 % [facility] Eosinophils % 6.1 % [facility] Basophils % 1.1 % [facility] Comment: Test Performed at: [facility] [address] DAVE YU MD 07/27/2025 11:4 0 AM CDT 07/27/2025 2:28 PM CDT Lisette Patton MD LAB - HEMATOLOGY ORDER SAKSHI Final Result [address] [address] * COMPREHENSIVE METABOLIC PANEL (07/27/2025 11:40 AM CDT) Only the most recent of2 resultswithin the time period is included. [facility] Glucose TNP mg/dL [facility] Comment: TEST NOT PERFORMED Specimen unsuitable for testing due to hemolysis. Test Performed at: [facility] [address] DAVE YU MD BUN [facility] Creatinine [facility] eGFR by Cystatin C [facility] BUN/Creatinine Ratio [facility] Sodium [facility] Potassium [facility] Chloride [facility] CO2 [facility] Calcium [facility] Protein Total [facility] Albumin [facility] Globulin Total [facility] Albumin/Globulin Ratio [facility] Bilirubin Total [facility] Alkaline Phosphatase [facility] AST [facility] ALT [facility] Comment: Test Performed at: [facility] [address] DAVE YU MD 07/27/2025 11:4 0 AM CDT 07/27/2025 2:28 PM CDT Lisette Patton MD LAB - CHEMISTRY ORDERA BLES Final Result Performing Organization Address [facility] de Phone Number [address] [address] * HEPATITIS C AB W/RFLX TO HCV RNA QN PCR (02/06/2024 11:42 AM CDT) [facility] Hepatitis C Antibody NON-REACTI VE NON-REACT [facility] Comment: HCV antibody was non-reactive. There is no laboratory evidence of HCV infection. In most cases, no further action is required. However, if recent HCV exposure is suspected, a test for HCV RNA (test code 51670) is suggested. For additional information please refer to http://education.[employer]/faq/BAC26r1 (This link is being provided for informational/ educational purposes only.) Test Performed at: [facility] [address] [place] [address] DAVE YU MD 02/06/2024 11:4 2 AM CDT 02/06/2024 11:47 AM CDT Lisette Patton MD LAB - CHEMISTRY ORDERA BLES Final Result Performing Organization Address [facility] Co de Phone Number [address] [address] from Last 3 Months or Most Recently Relevant to Health Maintenance Insurance [employer] ADV HMO & PPO [employer] MEDICARE ADV HMO & PPO Care Teams Order Dispatcher Relationship Specialty Start Date End Date Margie Rodríguez MD PCP - General 06/06/20
--- OUTSIDE RECORDS SUMMARY | 2025-08-01 07:56 | XMS_ITS | Patient Health Record ---
Author Organization [employer] Address [address] [facility] [address] [place], [place] [id number] Care Team Providers Care Package Maker Name Role Phone Sandy Bhakta Unavailable [phone] ALLERGIES Allergen (clinical drug ingredient) Drug/Non Drug [...] Notes Problem POLYARTHRITIS (716.59) Active confirmed Polyarthritis (105121277) Problem POSITIVE RHEUMATOID FACTOR (795.79) Active confirmed Rheumatoid factor positive (658893617) PLAN OF TREATMENT No Information MEDICAL (GENERAL) HISTORY Medical History History ICD Code Ringing in ears swelling of ankles/feet difficulty breathing painful urination weight gain erection difficulties anxiety depression Surgical History Surgery Date(Month/Year) sibacious cyst removed on 2014
== END 2025-08-01 07:36 | disposition home or self-care (01) ==
PROVIDERS: PCP Nurse Practitioner Family; Visit Provider Internal Medicine Cardiovascular Disease
DX: Z01.810 Encounter for preprocedural cardiovascular examination (principal)
CPT/HCPCS: 78452; 93017; A9502; J2785

== ENCOUNTER 2025-09-08 02:13 | Day surgery (SDC) | payer MEDICARE, SELFPAY ==
[2025-09-07 12:35] VITALS: BMI 31.9
[2025-09-08] VITALS (14 sets, daily range): BP systolic 117–142; BP diastolic 77–100; PULSE 73–87; RESP 15–20; TEMP 36.1; O2SAT 95–97; BMI 31.4
[2025-09-08 07:42] LABS: Hematocrit 44.3 % (42.0-52.0); Hemoglobin 14.2 g/dL (14.0-18.0); Immature Granulocyte Percent A 0.2 % (0-0.5); Lymphocytes Absolute Auto 1.27 K/mm3 (0.9-3.2); Mean Corpuscular HGB Conc 32.1 g/dl (32-36); Mean Corpuscular Hemoglobin 28.9 pg (26-34); Mean Corpuscular Volume 90.2 fl (80-100); Nucleated Red Blood Cells Absolute Auto 0.000 K/mm3 (0.0-0.012); Nucleated Red Blood Cells Perc 0.0 % (0.0-0.2); Platelet Count Result 268 k/mm3 (150-375); Red Blood Count 4.91 M/mm3 (4.6-6.20); White Blood Count 5.5 K/mm3 (4.5-10.0)
[2025-09-08 08:25] LABS: Anion Gap 7 mmol/L (4-12); Blood Urea Nitrogen 12 mg/dL (9-20); Calcium 8.2 mg/dL (8.4-10.2); Carbon Dioxide 22 mmol/L (22-30); Chloride 107 mmol/L (98-107); Estimated CRCL calculation 82 ml/min; Estimated Glomerular Filt Rate > 60; Glucose 103 mg/dL (65-110); Potassium 4.0 mmol/L (3.4-5.0); Sodium 136 mmol/L (137-145)
--- NOTE | 2025-09-08 09:29 | WPDHPUPDATE1 ---
History and Physical Update Update Date/Time: 09/08/25 09:29 History and Physical has been reviewed, including an updated exam of the patient. There are NO changes in the patient's condition. Risks, benefits, and alternatives have been discussed and questions answered. Patient agrees to proceed with procedure.
--- NOTE | 2025-09-08 09:30 | P.PCNCC_ITS ---
Cardiac Cath Procedure Note Date of procedure:: 09/08/25 Performing physician:: CATHETERIZATION LABORATORY REPORT Procedure Date: 09/08/2025 Referring Physician: Dr. Vicente Anesthesia: Versed and Fentanyl were ordered and given in my presence at 0912, procedure ended at 0925. Supervision of nurse, Toma Pink monitored moderate sedation with 2mg Versed and 50mcg Fentanyl was provided for 13 minutes. Pre-op Diagnosis: Abnormal stress test Post-op Diagnosis: Abnormal stress test Procedure(s): Left heart catheterization with coronary angiography Access Site: Right radial artery Brief History and Clinical Indications: 59-year-old man with rheumatoid arthritis on rituximab, hypertension, hyperlipidemia who was undergoing preop cardiac clearance from the abnormal nuclear stress test for which cardiac catheterization with possible PCI have been recommended. All risks, benefits and alternatives to left heart catheterization with or without percutaneous coronary intervention was discussed at length with the patient. Risk of complications including but not limited to bleeding, infection, arrhythmia, stroke, worsening kidney function, blood loss, groin hematoma, limb loss, emergency coronary artery bypass grafting, and even were discussed with the patient and all questions were answered. The patient understood and wished to proceed. Time out called, patient name, date of , medical record number, allergies, procedure performed, identify Trackmobile Operator, patient and staff member concurred with accurate data, procedure carried on. Findings: LEFT HEART CATHETERIZATION FINDINGS: 1. Left main: The left main coronary artery is widely patent without any significant obstructive disease. 2. Left anterior descending: The LAD has 20% proximal stenosis. The mid LAD quickly tapers into a small vessel and likely is admitted vessel. 3. Left circumflex: The left circumflex artery is a large size codominant vessel. The left circumflex has luminal irregularities. OM1 is a large caliber vessel that reaches the apex and supplies the majority of lateral wall with luminal irregularities. The remaining OM branches and left PDA have luminal irregularities. 4. Right coronary artery: The RCA is a moderate-size codominant vessel. There is diffuse 10% stenosis in the right coronary artery. The RPL branch is small and diminutive. The RPDA is a moderate-sized vessel with 50% stenosis in its midbody. The remainder of the vessel has diffuse 10-20% stenosis. 5. Left ventricle: A. End-diastolic pressure 22 mmHg. B. LV gram deferred. C. No significant gradient across aortic valve on catheter pullback. 6. Opening AO pressure 125/90 and closing AO pressure 145/103 Description of Procedure: Informed consent signed and placed in the chart. Patient transferred to dental laboratory technician apprentice room. Prepped and draped in usual sterile fashion. 2% lidocaine injected subcutaneously in right wrist area. 22-gauge venipuncture catheter used to access the right radial artery with the Seldinger technique. 6-FR slender sheath placed in right radial artery. Nitroglycerin 200mcg, Verapamil 2.5mg, and Heparin 5000U was given intraarterial through the sheath. J wire advanced under fluoroscopy. A 5F Ultra diagnostic catheter was guided into the left ventricle over a wire for measurements of LVEDP and aortic valve gradient. After pull back, the 5F Ultra diagnostic catheter engaged Left Main Coronary Artery and Right Coronary Artery. Multiple orthogonal angiogram obtained and reviewed. Hemostasis was achieved by application of TR band. Assessment: Moderate CAD Diminutive LAD Post Operative Condition: Stable No significant blood loss Disposition: Home Plan: The above findings were discussed with the referring physician. Continue aggressive medical therapy and risk factor modification. Georges Durand Interventional Cardiology
--- NOTE | 2025-09-08 09:30 | WPDMODSED ---
Moderate Sedation Note-Pt Data Patient Data Allergies Allergy/AdvReac Type Severity Reaction Status Date / Time amoxicillin Allergy Severe Headache Verified 09/07/25 12:33 prednisone Allergy Unknown Verified 09/07/25 12:33 Home Medications ?Medication ?Instructions ?Recorded ?Confirmed ?Type omeprazole magnesium 20 mg 20 mg PO DAILY 05/29/21 09/07/25 History tablet,delayed release folic acid 1 mg tablet 1 mg PO DAILY 04/30/24 09/07/25 History hydroxychloroquine 200 mg tablet 200 mg PO BID 09/13/24 09/07/25 History infliximab-abda 100 mg intravenous 100 mg IV [id number] 09/13/24 09/07/25 History solution leflunomide 20 mg tablet 20 mg PO DAILY 10/29/24 09/07/25 History infliximab 100 mg intravenous 610 mg IV ONCE 05/02/25 08/09/25 Rx solution (Remicade) amlodipine 5 mg tablet 5 mg PO DAILY #90 tabs 07/15/25 09/08/25 Rx metoprolol succinate 50 mg 50 mg PO DAILY #90 tabs 07/15/25 09/08/25 Rx tablet,extended release 24 hr venlafaxine 150 mg 150 mg PO BID #180 caps 07/20/25 09/07/25 Rx capsule,extended release 24 hr aspirin 81 mg tablet,delayed 81 mg PO DAILY 08/09/25 09/08/25 History release (Adult Aspirin Regimen) atorvastatin 10 mg tablet (Lipitor) 10 mg PO DAILY #30 tabs 08/09/25 09/08/25 Rx Current Medications: Active Medications Sodium Chloride (Normal Saline Iv) 1,000 mls @ 200 mls/hr IV CONT .Q5H ONE Stop: 09/08/25 14:26 Sedation/Anesthesia: No previous sedation/anesthesia problems (including family history). [facility] Past Medical History Medical History Post-nasal drip Paresis of right vocal cord GERD without esophagitis Depression with anxiety Prediabetes Family history of colon cancer in father Osteoarthritis LAURENT (obstructive sleep apnea) Hypertension DJD (degenerative joint disease) of knee Left shoulder pain Rheumatoid arthritis Surgical History Surgical History History of left knee replacement 12/2020 History of nasal surgery 01/2019 - Endoscopic anterior and posterior ethmoid, maxillary antrostomy, both sides. Status post total knee replacement (~06/14/20) Right Family History Family History Father Malignant neoplasm of prostate Family history of lung cancer, Onset Age: 74 Patient's father is Mother Patient's mother is , Onset Age: 69 Acute myocardial infarction, Onset Age: 69 Family history of cardiovascular disease, Onset Age: 71 Sibling Patient's brother is Other Family history of arthritis Hypertension Social History Social History (Updated 06/21/25 @ 08:35 by Xi Dykes MA) Social History: Patient lives at home with his . His PCP is Dr. Jay. He is listed as a FC. Smoking packs per day: 0.50 Smoking cigarettes per day: 10.0 Years smoked: 40 Smoking pack-years: 20.00 Smoking status: Current every day smoker Tobacco type: cigarettes Second hand tobacco smoke exposure: No Smoking end date: 05/15/25 Additional smoking assessment comments: 1/2 ppd x 40 years cigarettes Alcohol intake: current Alcohol use details: rarely Substance use: former Substance use type: marijuana Do You Feel Safe in your Home?: Yes Lack of Transportation: No Lack of Food: Never True Current Housing: I Have Housing Concerned About Future Housing: No Difficulty Paying Gas/Electric Bills: No Difficulty Paying for Meds: No Currently Unemployed: No Education: High School Diploma/GED Difficulty w/ Childcare or Family Care: No Living arrangements: with family Occupation/Education: other Gender identity (if verbalized by the patient): Male Spiritual care concerns: No Agree to blood products: Yes Mod Sed Physical Exam Physical Exam Pre Procedural Exam: Normal: Lungs, Heart Size, Heart Rate and Heart Rhythm Hours since solid foods: 12 Hours since liquid intake: 12 Mallampati Classification: class III Internal Medicine - PN: Obj Da Vital Signs Vital Signs: Vital Signs - 24 hr 09/08/25 07:15 Temperature 36.1 C L Pulse Rate 74 Respiratory Rate 16 Blood Pressure 137/97 H Pulse Oximetry 97 Oxygen Delivery Room Air Meds/Results Medications: Active Medications Generic Name Dose Route Start Last Admin Trade Name Freq PRN Reason Stop Dose Admin Sodium Chloride 1,000 mls @ 200 mls/hr 09/08/25 09:27 Normal Saline Iv IV CONT 09/08/25 14:26 .Q5H ONE Labs 09/08/25 07:13 09/08/25 08:09 Labs: Laboratory Results - last 24 hr 09/08/25 09/08/25 07:13 08:09 WBC 5.5 RBC 4.91 Hgb 14.2 Hct 44.3 MCV 90.2 MCH 28.9 MCHC 32.1 RDW 14.6 H Plt Count 268 MPV 11.1 H Immature Gran % (Auto) 0.2 Neut % (Auto) 49.2 Lymph % (Auto) 22.9 Eddy % (Auto) 15.2 H Eos % (Auto) 11.2 H Baso % (Auto) 1.3 H Lymph # (Auto) 1.27 Eddy # (Auto) 0.8 H Eos # (Auto) 0.6 H Baso # (Auto) 0.1 Abs Immat Gran (auto) 0.01 Absolute Neuts (auto) 2.7 Absolute Nucleated RBC 0.000 Nucleated RBC % 0.0 Sodium 136 L Potassium 4.0 Chloride 107 Carbon Dioxide 22 Anion Gap 7 BUN 12 Creatinine 1.08 Estim Creat Clear Calc 82 Estimated GFR > 60 Glucose 103 Calcium 8.2 L ASA Classification/Sedation ASA Classification/Sedation ASA Class: III Emergent: No Risks: Risks, benefits and alternatives explained and patient/family accepted plan for sedation. Patient re-evaluated immediately prior to sedation.
[2025-09-08] MEDS: SODIUM CHLORIDE 0.9% IV 1,000 ML 200 ML IV CONT (09:59)
--- NOTE | 2025-09-08 12:50 | SUR.PHASEII ---
Reviewed d/c instructions w/ pt and spouse. Pt verbalized understanding.
== END 2025-09-08 12:56 | disposition home or self-care (01) ==
PROVIDERS: PCP Nurse Practitioner Family; Visit Provider Internal Medicine
PROC: 4A023N7 Measurement of Cardiac Sampling and Pressure, Left Heart, Percutaneous Approach (ICD-10-PCS; CPT 93452; principal; 2025-09-08 08:30)
DX: I25.10 Atherosclerotic heart disease of native coronary artery without angina pectoris (principal); R94.39 Abnormal result of other cardiovascular function study; I10 Essential (primary) hypertension; E78.5 Hyperlipidemia, unspecified; M10.9 Gout, unspecified; Z79.620 Long term (current) use of immunosuppressive biologic; Z87.891 Personal history of nicotine dependence
CPT/HCPCS: 36415; 80048; 85025; 93458; C1769; C1887; C1894; J1644; J2003; J2250; J2305; J3010; J7030; J7040